=== PATIENT | female | born 1940 | race Caucasian/White ===

== ENCOUNTER 2021-05-20 12:20 | Outpatient (REF) | payer MEDICARE, SELFPAY ==
[2021-05-20 12:58] LABS: Alanine Aminotransferase < 6 U/L (0-31); Albumin Level 4.5 g/dL (3.5-5.0); Alkaline Phosphatase 67 U/L (39-117); Anion Gap 11 (12-20); Aspartate Amino Transferase 22 U/L (5-31); Bilirubin Total 0.9 mg/dL (0.0-1.0); Blood Urea Nitrogen 23 mg/dL (9-16); Calcium 9.6 mg/dL (8.4-10.2); Carbon Dioxide 30 mmol/L (22-29); Chloride 105 mmol/L (96-108); Estimated Glomerular Filt Rate > 60; Glucose Fasting 85 mg/dL (60-99); Potassium 4.2 mmol/L (3.3-5.1); Sodium 142 mmol/L (135-145); Total Protein 7.2 g/dL (6.5-8.0)
== END 2021-05-20 12:21 | disposition home or self-care (01) ==
LOC: HO.LAB 12:20
PROVIDERS: Visit Provider Internal Medicine
DX: C88.4 Extranodal marginal zone B-cell lymphoma of mucosa-associated lymphoid tissue [MALT-lymphoma] (principal); K59.01 Slow transit constipation; I10 Essential (primary) hypertension
CPT/HCPCS: 80053; 82306

== ENCOUNTER 2022-01-24 09:43 | Emergency (ER) | payer MEDICARE, SELFPAY ==
--- NOTE | ~2022-01-24 | XR_ITS ---
EXAMINATION: XR ABDOMEN KUB CLINICAL INDICATION: Constipation. No bowel movement 9 days. COMPARISON: None TECHNIQUE: AP view of the abdomen. FINDINGS: Stool is seen throughout nondilated colon with formed stool seen within the transverse colon and descending colon to rectum. No dilated loops of small bowel are evident. No pneumatosis intestinalis. Psoas margins are intact. There is degenerative change lumbar spine L4-S1. XR/XR KUB IMPRESSION: Stool within nondilated colon without evidence of large or small bowel obstruction.
[2022-01-24 09:48] VITALS: BP 153/99; PULSE 91; RESP 18; TEMP 35.9; O2SAT 95; BMI 22.8
[2022-01-24 10:33] VITALS: BP 134/67; PULSE 85; RESP 18; O2SAT 99
[2022-01-24 10:34] LABS: MANUAL DIFF FLAG NO
[2022-01-24 10:36] LABS: Basophils Percent Auto 0.2 % (0-2); Eosinophils Percent Auto 0.3 % (0-4); Hematocrit 40.6 % (37.0-47.0); Hemoglobin 13.6 g/dl (12.0-16.0); Imm Gran Abs Auto 0.03 X10*3/uL (0.00-0.03); Imm Gran Pct Auto 0.3 % (0.0-0.4); Lymphocytes Absolute Auto 0.8 X10*3/uL (1.2-4.9); Lymphocytes Percent Auto 9.4 % (20-40); Mean Corpuscular HGB Conc 33.5 g/dl (31.0-35.0); Mean Corpuscular Hemoglobin 27.9 pg (27.0-33.0); Mean Corpuscular Volume 83.4 fL (80.0-98.0); Mean Platelet Volume 10.7 fL (9.4-12.3); Monocytes Absolute Auto 0.5 X10*3/uL (0.1-1.2); Monocytes Percent Auto 5.6 % (2-11); Neutrophils Absolute Auto 7.5 x10*3/uL (2.0-8.3); Neutrophils Percent Auto 84.2 % (45-73); Platelet Count 179 X10*3/uL (160-400); Red Blood Count 4.87 X10*6/uL (4.20-5.50); Red Cell Distribution Width 14.7 % (11.0-16.0)
--- NOTE | 2022-01-24 10:36 | ED_ITS ---
HPI - Abdominal Pain General Chief Complaint: Abdominal Pain Stated Complaint: Constipated Time Seen by Provider: 01/24/22 10:04 Source: patient Mode of arrival: ambulatory History of Present Illness HPI narrative: 81-year-old female with a past medical history of HTN, lymphoma, Parkinson's, presenting to the ED complaining of lower abdominal cramping, and constipation without BM x9 days. Admits to passing minimal flatus today. Tried using OTC medications and enema without relief. Denies fever, chills, nausea, vomiting, diarrhea, dysuria/hematuria MD elicited complaint: abdominal pain Pertinent past history: constipation Onset (ago): day(s) Related Data Home Medications Medication Instructions Recorded Confirmed carbidopa 25 mg-levodopa 100 mg 1 tab PO TID 09/18/20 11/14/21 tablet rasagiline 0.5 mg tablet 0.5 mg PO DAILY 09/18/20 11/14/21 Previous Rx's Medication Instructions Recorded amlodipine 5 mg tablet 5 mg PO DAILY #90 tab 06/13/21 lisinopril 20 1 tab PO DAILY #90 tab 08/14/21 mg-hydrochlorothiazide 12.5 mg tablet Allergies Allergy/AdvReac Type Severity Reaction Status Date / Time clindamycin [CLINDAMYCIN] Allergy Severe DIARRHEA Verified 01/24/22 09:47 Penicillins [PCN] Allergy Intermediate UNKNOWN Verified 01/24/22 09:47 penicillin V Allergy Unknown Unknown Verified 01/24/22 09:47 Review of Systems Review of Systems Constitutional: No Fever, No Chills, No Fatigue, No Malaise ENT/Mouth: No Ear Pain, No Nasal Congestion, No sore throat, No Rhinorrhea, No Swallowing Difficulty Eyes: No Eye Pain, No Swelling, No Redness Cardiovascular: No Chest Pain, No SOB, No Edema, No Palpitations Respiratory: No Cough, No Dyspnea Gastrointestinal: No Nausea, No Vomiting, No Diarrhea, + Constipation, + Abdominal pain Genitourinary: No irregular bleeding, No Dysuria, No Urinary Frequency, No Hematuria, No Urgency, No Flank Pain Musculoskeletal: No joint pain, No Myalgias, No Joint Swelling Skin: No Skin Lesions, No rash Neuro: No Weakness, No Dizziness, No Headache Yes all other systems are reviewed and are negative PMFSH Past Medical History Attestation statement: The following information was validated with the patient. Medical History HTN (hypertension) Lymphoma Parkinson disease Vitamin D deficiency Surgical History H/O colonoscopy No pertinent past surgical history S/P partial hysterectomy Family History Family History Father Myocardial infarction Mother Uterine cancer Sister Alzheimer disease Social History Social History Housing: House Alcohol intake: current Alcohol intake frequency: does not drink Patient Tobacco Use Status: Never used Tobacco e-Cigarette/Vaping Use: Never Used Use of substances other than those prescribed or required for medical reasons: No Advance Directives: Yes Advance Directives Information Provided: Yes Advance Directives on File: No Current occupational status: retired Physical Exam ED Vital Signs: Vital Signs - 24 hr 01/24/22 09:48 01/24/22 10:33 Temperature 96.7 F L Pulse Rate 91 85 Respiratory Rate 18 18 Blood Pressure 153/99 H 134/67 Pulse Oximetry 95 99 BMI result Body Mass Index 22.8 Const General: cooperative, healthy appearing and no acute distress Orientation/consciousness: patient oriented x3 Limitations: no limitations HENMT Head: Yes normal to inspection and Yes atraumatic Ears: hearing grossly normal bilaterally General nose exam: Normal external nose present Face and sinus: Yes normal facial exam Eyes General: appearance normal, both eyes and all related structures EOM: EOMs intact bilaterally Neck Neck: Yes normal visual inspection and Yes no meningeal signs Resp Effort & Inspection: normal respiratory effort Auscultation: clear to auscultation bilaterally Cardio Rate: regular rate Heart sounds: S1 normal heart sound present and S2 normal heart sound present GI Inspection: Yes normal to inspection Palpation (GI): Soft to palpation, nontender, no guarding and not rigid Rectal Exam - Female: External hemorrhoid(s) present and fecal impaction General: Yes no CVA tenderness Back/Spine/Pelvis Back: no CVA tenderness Skin Rashes: no rashes Wounds: no wounds Neuro General: patient oriented x3 and no meningeal signs Gait exam (Neuro): Normal gait present Extrem General: Yes normal to inspection Procedures Rectal Disimpaction Indication: fecal impaction Procedural Sedation: No Technique: manual disimpaction with gloved finger Patient Tolerated Procedure: well Complications: none Additional Comments: partial disimpaction. Multiple small clumps of stool dislodged. Course Course Course Narrative: -1116--no leukocytosis. BUN chronically elevated. Labs otherwise unremarkable XR KUB IMPRESSION: Stool within nondilated colon without evidence of large or small bowel obstruction. -1140--manually disimpacted patient with partial success. Will give milk of magnesia and enema and wait for successful BM --1252--patient with successful BM in the ED. plan to DC home with PCP follow- up. Encouraged stool softeners, laxatives p.r.n. and increase fiber in diet. This was also discussed with patient's son at bedside, they verbalized understanding and feel safe for discharge home MDM - Abdominal Pain MDM Narrative Medical decision making narrative: 81-year-old female with a past medical history of HTN, lymphoma, Parkinson's, presenting to the ED complaining of lower abdominal cramping, and constipation without BM x9 days. On exam vital signs stable, NAD, abdomen soft/nontender, rectal exam fecal impaction noted. Concern for constipation/ fecal impaction vs SBO. Plan: Labs, UA, KUB, symptomatic tx Differential Diagnosis Differential diagnosis: Likely abdominal pain, constipation and small bowel obstruction Medical Records Attestation: I reviewed the patient's medical records. Lab Data Attestation: I reviewed the patient's lab results. Result diagrams: 01/24/22 10:30 01/24/22 10:30 Labs: Lab Results 01/24/22 01/24/22 Range/Units 10:30 10:30 WBC 9.0 (4.8-10.8) X10*3/uL RBC 4.87 (4.20-5.50) X10*6/uL Hgb 13.6 (12.0-16.0) g/dl Hct 40.6 (37.0-47.0) % MCV 83.4 (80.0-98.0) fL MCH 27.9 (27.0-33.0) pg MCHC 33.5 (31.0-35.0) g/dl RDW 14.7 (11.0-16.0) % Plt Count 179 (160-400) X10*3/uL MPV 10.7 (9.4-12.3) fL Immature Gran % (Auto) 0.3 (0.0-0.4) % Neut % (Auto) 84.2 H (45-73) % Lymph % (Auto) 9.4 L (20-40) % Stephens % (Auto) 5.6 (2-11) % Eos % (Auto) 0.3 (0-4) % Baso % (Auto) 0.2 (0-2) % Lymph # (Auto) 0.8 L (1.2-4.9) X10*3/uL Stephens # (Auto) 0.5 (0.1-1.2) X10*3/uL Eos # (Auto) 0.0 (0.0-0.4) X10*3/uL Baso # (Auto) 0.0 (0.0-0.2) X10*3/uL Abs Immat Gran (auto) 0.03 (0.00-0.03) X10*3/uL Absolute Neuts (auto) 7.5 (2.0-8.3) x10*3/uL Absolute Nucleated RBC 0.000 (0.0-0.012) X10*3/uL Nucleated RBC % (auto) 0.0 (0.0-0.2) /100WBC Sodium 139 (135-145) mmol/L Potassium 3.4 (3.3-5.1) mmol/L Chloride 102 (96-108) mmol/L Carbon Dioxide 24 (22-29) mmol/L Anion Gap 16 (12-20) BUN 21 H (9-16) mg/dL Creatinine 0.80 (0.5-1.4) mg/dL Estim Creat Clear Calc 43.6 Estimated GFR > 60 Random Glucose 139 H (60-115) mg/dL Calcium 9.2 (8.4-10.2) mg/dL Magnesium 1.8 (1.6-2.6) mg/dL Total Bilirubin 0.7 (0.0-1.0) mg/dL Direct Bilirubin 0.3 (0.0-0.5) mg/dL AST 20 (5-31) U/L ALT < 6 (0-31) U/L Alkaline Phosphatase 64 (39-117) U/L Total Protein 6.9 (6.5-8.0) g/dL Albumin 4.1 (3.5-5.0) g/dL Lipase 21 (8-78) U/L Discharge Plan Discharge Clinical Impression: Fecal impaction Patient Disposition: Home, Self-Care Instructions: Constipation (ED), Fecal Impaction (ED) Additional Instructions: Your blood work was reassuring. your x-ray showed large amount of stool in her colon. Your disimpacted in the ED with a successful bowel movement. Make sure in taking plenty of fluid. Increased fiber in her diet. Take stool softeners and laxatives p.r.n.. Do not go more than 48 hours without a bowel movement. If youre not moving your bowels/pooping or having flatus please return to the emergency department Prescriptions: No Action amlodipine 5 mg tablet 5 mg PO DAILY Qty: 90 3RF lisinopril-hydrochlorothiazide 20-12.5 mg tablet 1 tab PO DAILY Qty: 90 3RF rasagiline 0.5 mg tablet 0.5 mg PO DAILY 0RF carbidopa-levodopa 25-100 mg tablet 1 tab PO TID 0RF Referrals: Radha Cramer MD [Primary Care Provider] - 5 days
--- NOTE | 2022-01-24 10:40 | PC.NURSE ---
pt alert and oriented, skin pwd, respirations even and unlabored. pt reports being unable to have a bowel movement for the last 9 days, reports abd pain/rectal pain that comes and goes 8/10, denies nausea. pt attempted a enema earlier this morning without any success
[2022-01-24 10:53] LABS: Alanine Aminotransferase < 6 U/L (0-31); Albumin Level 4.1 g/dL (3.5-5.0); Alkaline Phosphatase 64 U/L (39-117); Anion Gap 16 (12-20); Aspartate Amino Transferase 20 U/L (5-31); Bilirubin Direct 0.3 mg/dL (0.0-0.5); Bilirubin Total 0.7 mg/dL (0.0-1.0); Blood Urea Nitrogen 21 mg/dL (9-16); Calcium 9.2 mg/dL (8.4-10.2); Carbon Dioxide 24 mmol/L (22-29); Chloride 102 mmol/L (96-108); Creatinine Clr Calc Pharmacy 43.6; Estimated Glomerular Filt Rate > 60; Glucose Random 139 mg/dL (60-115); Lipase 21 U/L (8-78); Magnesium 1.8 mg/dL (1.6-2.6); Potassium 3.4 mmol/L (3.3-5.1); Sodium 139 mmol/L (135-145); Total Protein 6.9 g/dL (6.5-8.0)
[2022-01-24] MEDS: Mineral OiL enema 133 ML ENEMA PR (11:40)
[2022-01-24] MEDS: Milk of Magnesia 30 ML ORAL.SUSP PO (11:40)
--- NOTE | 2022-01-24 12:54 | PC.NURSE ---
patient reports having bowel movement at this time, feels improved. provider aware, patient in no obvious distress at this time
== END 2022-01-24 14:17 | disposition home or self-care (01) ==
PROVIDERS: Physician Assistant; Emergency Provider Emergency Medicine; PCP Internal Medicine
DX: K59.00 Constipation, unspecified (principal); R10.13 Epigastric pain; Z79.899 Other long term (current) drug therapy
CPT/HCPCS: 36415; 74018; 80048; 80076; 83690; 83735; 85025; 99284

== ENCOUNTER 2022-11-28 15:20 | Outpatient (REF) | payer MEDICARE, SELFPAY ==
--- NOTE | ~2022-11-28 | XR_ITS ---
EXAMINATION: XR LUMBOSACRAL SPINE CLINICAL INFORMATION: Low back pain. COMPARISON: None TECHNIQUE: Three views of the lumbosacral spine. FINDINGS: There is generalized osteopenia. Mild to severe multilevel degenerative disc disease is seen most pronounced at L4-5 and L5-S1. Mild superior plate compression deformities are seen at L2 and L4 without acute features. The soft tissues are unremarkable. XR/XR lumbar spine 2-3V IMPRESSION: Multilevel degenerative changes as detailed above. Mild superior plate compression deformities at L2 and L4 do not demonstrate acute features. Correlate with patient history and physical exam.
== END 2022-11-28 15:21 | disposition home or self-care (01) ==
LOC: HO.HMGCX 15:20
PROVIDERS: PCP Internal Medicine; Visit Provider Internal Medicine
DX: M54.50 Low back pain, unspecified (principal); Z87.81 Personal history of (healed) traumatic fracture
CPT/HCPCS: 72100

== ENCOUNTER 2022-12-08 12:49 | Emergency (ER) | payer MEDICARE, SELFPAY ==
--- NOTE | ~2022-12-08 | CT_ITS ---
EXAMINATION: CT ABDOMEN AND PELVIS WITHOUT CONTRAST CLINICAL INFORMATION: Constipation, small bowel obstruction. COMPARISON: None TECHNIQUE: Multidetector volumetric imaging was performed from the superior aspect of the liver through the pubic symphysis. Sagittal and coronal reformatted images were obtained on the technologist's workstation. This CT examination was performed using dose optimization techniques as appropriate, variously including the following: *Automated exposure control *Adjustment of mA and/or kV according to patient size (this includes techniques or standardized protocols for targeted exams where dose is matched to indication/reason for exam; i.e. extremities or head) *Use of iterative reconstruction technique DLP: 558 mGy-cm FINDINGS: LUNG BASES: The lung bases are clear heart size is normal. There is moderate coronary artery calcifications. LIVER, GALLBLADDER, AND BILIARY TREE: The liver is normal in size, shape, and attenuation. No focal hepatic lesion or biliary ductal dilatation is present. The gallbladder is unremarkable with no evidence of radiopaque gallstones, gallbladder wall thickening, or obvious pericholecystic inflammatory changes. PANCREAS: Unremarkable. SPLEEN: Unremarkable. ADRENAL GLANDS: Unremarkable. KIDNEYS AND URETERS: The kidneys are normal in size, shape, and attenuation. No hydronephrosis, hydroureter, or calculi seen. No perinephric stranding. BLADDER: Unremarkable. GASTROINTESTINAL TRACT: There is scattered stool, oral contrast throughout the colon without distention. A significantly redundant sigmoid colon with air-fluid level noted in the caudate lobe. The small bowel loops are normal caliber. The stomach is nondistended. No free air or free fluid seen ABDOMINAL WALL: No significant hernia is appreciated. LYMPH NODES: No abnormal size retroperitoneal or pelvic lymph nodes seen. VASCULAR: Unremarkable. PELVIC VISCERA: There is moderate mural thickening of the rectum, nonspecific no pericolic fat stranding seen. OSSEOUS STRUCTURES: There are degenerative disc changes with vacuum disc phenomena L4-L5 and L5-S1 disc levels. There are moderate superior endplate Schmorl's node L5 and L2 vertebra. No aggressive lytic or sclerotic process seen. CT/CT abdomen pelvis wo IV con IMPRESSION: Moderate constipation. No acute process seen. Moderate mural thickening involving the rectum and distal segments, question stercoral colitis . Fleischner guidelines were followed.
[2022-12-08 12:53] VITALS: BP 177/94; PULSE 105; RESP 18; TEMP 36.4; O2SAT 97; BMI 21.0
--- NOTE | 2022-12-08 12:57 | ED.GENADULT ---
HPI - General Adult General Chief complaint: Abdominal Pain <CHASE Lanier - Last Filed: 12/08/22 19:36> Stated complaint: unable to void x 10 days <CHASE Lanier - Last Filed: 12/08/22 19:36> Time Seen by Provider: 12/08/22 13:59 <CHASE Lanier - Last Filed: 12/08/22 19:36> Source: patient <Judith Aggarwal NP - Last Filed: 12/08/22 18:04> Mode of arrival: ambulatory <Judith Aggarwal NP - Last Filed: 12/08/22 18:04> Limitations: no limitations <Judith Aggarwal NP - Last Filed: 12/08/22 18:04> History of Present Illness HPI narrative: 82 yo female with history of parkinsons disease, chronic constipation here wtih constipation and no BM x 12 days. Has been taking lactulose 15ml since 11/28 with no BM. NO associated pain/vomiting/fever. <Judith Aggarwal NP - Last Filed: 12/08/22 18:04> Related Data Home medications: Home Medications Medication Instructions Recorded Confirmed carbidopa 25 mg-levodopa 100 mg 1 tab PO TID 09/18/20 11/28/22 tablet rasagiline 0.5 mg tablet 0.5 mg PO DAILY 09/18/20 11/28/22 Previous Rx's Medication Instructions Recorded amlodipine 5 mg tablet 5 mg PO DAILY #90 tabs 06/09/22 baclofen 10 mg tablet 10 mg PO BEDTIME #10 tabs 11/28/22 lactulose 10 gram/15 mL (15 mL) 10 g (15 mL) PO BEDTIME #1,440 mL 11/28/22 oral solution lisinopril 10 1 tab PO DAILY #90 tabs 11/28/22 mg-hydrochlorothiazide 12.5 mg tablet meloxicam 15 mg tablet 15 mg PO DAILY #10 tabs 11/28/22 docusate sodium 100 mg capsule 100 mg PO DAILY #30 caps 12/08/22 (Colace) polyethylene glycol 3350 17 17 g PO DAILY #238 grams 12/08/22 gram/dose oral powder (Miralax) <CHASE Lanier - Last Filed: 12/08/22 19:36> Allergies/adverse reactions: Allergies Allergy/AdvReac Type Severity Reaction Status Date / Time clindamycin [CLINDAMYCIN] Allergy Severe DIARRHEA Verified 11/28/22 14:37 Penicillins [PCN] Allergy Intermediate Rash Verified 11/28/22 14:37 penicillin V Allergy Unknown Rash Verified 11/28/22 14:37 jax Allergy could not Verified 11/28/22 14:37 breath <CHASE Lanier - Last Filed: 12/08/22 19:36> Review of Systems Review of Systems: Yes all other systems are reviewed and are negative <Judith Aggarwal NP - Last Filed: 12/08/22 18:04> Constitutional: Constitutional: Reports no additional constitutional complaints, Denies body ache(s), Denies chills, Denies fever(s), Denies headache(s) and Denies weakness <Judith Aggarwal NP - Last Filed: 12/08/22 18:04> Eyes: Eyes: Reports no additional eye complaints and Denies change in vision <Judith Aggarwal NP - Last Filed: 12/08/22 18:04> ENT: Reports system reviewed and no additional complaints, except as documented, Denies dizziness, Denies headache(s), Denies nasal congestion, Denies nasal discharge and Denies neck pain <Judith Aggarwal NP - Last Filed: 12/08/22 18:04> Cardiovascular: Cardiovascular: Reports no additional cardiovascular complaints, Denies chest pain, Denies leg edema and Denies dyspnea <Judith Aggarwal NP - Last Filed: 12/08/22 18:04> Respiratory: Respiratory: Reports no additional respiratory complaints, Denies cough and Denies dyspnea <Judith Aggarwal NP - Last Filed: 12/08/22 18:04> Gastrointestinal: Gastrointestinal: Reports no additional gastrointestinal complaints, Denies abdominal pain, Reports constipation, Denies diarrhea, Denies nausea and Denies vomiting <Judith Aggarwal NP - Last Filed: 12/08/22 18:04> Genitourinary: Genitourinary: Reports no additional female genitourinary complaints and Denies urinary incontinence <Judith Aggarwal NP - Last Filed: 12/08/22 18:04> Musculoskeletal: Musculoskeletal: Reports no additional musculoskeletal complaints, Denies back pain, Denies arthralgias, Denies joint swelling, Denies neck pain, Denies numbness and Denies tingling <Judith Aggarwal NP - Last Filed: 12/08/22 18:04> Integumentary/Breasts: Skin/Breast: Reports system reviewed and no additional complaints, except as docu and Denies rash <Judith Aggarwal NP - Last Filed: 12/08/22 18:04> Neurologic: Reports system reviewed and no additional complaints, except as documented, Denies dizziness, Denies headache(s), Denies numbness, Denies tingling and Denies weakness <Judith Aggarwal NP - Last Filed: 12/08/22 18:04> [facility] Past Medical History Attestation statement: The following information was validated with the patient. <Judith Aggarwal NP - Last Filed: 12/08/22 18:04> Source: old records reviewed and nursing notes reviewed <Judith Aggarwal NP - Last Filed: 12/08/22 18:04> Medical History: Medical History HTN (hypertension) Lymphoma Parkinson disease Vitamin D deficiency <CHASE Lanier - Last Filed: 12/08/22 19:36> Surgical History: Surgical History H/O colonoscopy No pertinent past surgical history S/P partial hysterectomy <CHASE Lanier - Last Filed: 12/08/22 19:36> Family History Family History: Family History Father Myocardial infarction Mother Uterine cancer Sister Alzheimer disease <CHASE Lanier - Last Filed: 12/08/22 19:36> Social History Social History: Social History Housing: House Alcohol intake: current Alcohol intake frequency: does not drink Patient Tobacco Use Status: Never used Tobacco e-Cigarette/Vaping Use: Never Used Advance Directives: No Advance Directives Information Provided: Yes Current occupational status: retired Cognitive needs: No Hearing needs: No Vision needs: Yes <CHASE Lanier - Last Filed: 12/08/22 19:36> Physical Exam ED Vital Signs: Vital Signs - 24 hr 12/08/22 12:53 12/08/22 16:00 Temperature 97.5 F 97.6 F Pulse Rate 105 H 88 Respiratory Rate 18 16 Blood Pressure 177/94 H 160/69 H Pulse Oximetry 97 99 Oxygen Delivery Method Room Air Room Air BMI result Body Mass Index 21.0 <CHASE Lanier - Last Filed: 12/08/22 19:36> Vital Signs - 24 hr 12/08/22 12:53 12/08/22 16:00 Temperature 97.5 F 97.6 F Pulse Rate 105 H 88 Respiratory Rate 18 16 Blood Pressure 177/94 H 160/69 H Pulse Oximetry 97 99 Oxygen Delivery Method Room Air Room Air BMI result Body Mass Index 21.0 <Judith Aggarwal NP - Last Filed: 12/08/22 18:04> Const General: cooperative, healthy appearing, comfortable and no acute distress <Judith Aggarwal NP - Last Filed: 12/08/22 18:04> Orientation/consciousness: patient oriented x3 <Judith Aggarwal NP - Last Filed: 12/08/22 18:04> Limitations: no limitations <Judith Aggarwal NP - Last Filed: 12/08/22 18:04> HENMT Head: Yes normal to inspection <Judith Aggarwal NP - Last Filed: 12/08/22 18:04> Ears: hearing grossly normal bilaterally <Judith Aggarwal NP - Last Filed: 12/08/22 18:04> Eyes General: appearance normal, both eyes and all related structures <Judith Aggarwal NP - Last Filed: 12/08/22 18:04> Pupils: Equal, round and reactive pupils present <HAROON Polo Last Filed: 12/08/22 18:04> Neck Neck: Yes normal visual inspection, Yes full ROM and Yes no lymphadenopathy <Judith Aggarwal NP - Last Filed: 12/08/22 18:04> Chest Chest palpation & inspection: normal inspection of the chest <Judith Aggarwal NP - Last Filed: 12/08/22 18:04> Resp Effort & Inspection: normal respiratory effort <Judith Aggarwal NP - Last Filed: 12/08/22 18:04> Auscultation: clear to auscultation bilaterally <Judith Aggarwal NP - Last Filed: 12/08/22 18:04> Cardio Rate: regular rate <Judith Aggarwal NP - Last Filed: 12/08/22 18:04> Rhythm: regular rhythm <Judith Aggarwal NP - Last Filed: 12/08/22 18:04> Peripheral pulses: Peripheral pulses 2+ throughout <Judith Aggarwal NP - Last Filed: 12/08/22 18:04> GI Inspection: Yes normal to inspection <Judith Aggarwal NP - Last Filed: 12/08/22 18:04> Palpation (GI): Soft to palpation and nontender <Judith Aggarwal NP - Last Filed: 12/08/22 18:04> Auscultation: normal bowel sounds <Judith Aggarwal NP - Last Filed: 12/08/22 18:04> Rectal Exam - Female: normal sphincter tone and fecal impaction <Judith Aggarwal NP - Last Filed: 12/08/22 18:04> General: Yes no CVA tenderness <Judith Aggarwal NP - Last Filed: 12/08/22 18:04> Back/Spine/Pelvis Back: no CVA tenderness <Judith Agagrwal NP - Last Filed: 12/08/22 18:04> Thoracic/Lumbar Spine: thoracic and lumbar spine normal to inspection <Judith Aggarwal NP - Last Filed: 12/08/22 18:04> Skin General skin exam: no rashes or lesions noted <Judith Aggarwal NP - Last Filed: 12/08/22 18:04> Neuro General: patient oriented x3 and moves all extremities <Judith Aggarwal NP - Last Filed: 12/08/22 18:04> Cranial nerves: Yes Equal, round and reactive pupils present <Judith Aggarwal NP - Last Filed: 12/08/22 18:04> Extrem General: Yes normal to inspection <Judith Aggarwal NP - Last Filed: 12/08/22 18:04> Course Course Course Narrative: RME; patient with pmh of parkinsons presents to the ED for constipatoin for 12 days. patient not passing any stool, but is passing gas. Abdomen is soft/bening. patient has pmh of surgery on abdomen. patient will have labs draws and abdominal CT scan to evalute for bowel obstruction. <CHASE Lanier - Last Filed: 12/08/22 19:36> Reevaluation(s) Reevaluation #1: 1800-Patient with large BM. Patient feels much better. Will discharge home on bowel regimen. Reviewed worrisome signs/symptoms with patient and when to seek additional care. Comfortable with discharge home. <Judith Aggarwal NP - Last Filed: 12/08/22 18:04> Medications Administered Discontinued Medications Generic Name Dose Route Start Last Admin Trade Name Freq PRN Reason Stop Dose Admin Bisacodyl 10 mg 12/08/22 16:22 12/08/22 16:53 Bisacodyl 5 Mg Tablet. PO 12/08/22 16:23 10 mg ONCE ONE Administration Magnesium Hydroxide 15 ml 12/08/22 16:22 12/08/22 16:53 Milk Of Magnesia 30 Ml Oral.Susp PO 12/08/22 16:23 15 ml ONCE ONE Administration Sodium Biphosphate/Sodium Phosphate 133 ml 12/08/22 14:21 12/08/22 14:28 Sodium Phosphate,[place]-Dibasic 133 Ml Enema [place] 12/08/22 14:22 133 ml ONCE ONE Administration <CHASE Lanier - Last Filed: 12/08/22 19:36> Medications Administered Discontinued Medications Generic Name Dose Route Start Last Admin Trade Name Freq PRN Reason Stop Dose Admin Bisacodyl 10 mg 12/08/22 16:22 12/08/22 16:53 Bisacodyl 5 Mg Tablet. PO 12/08/22 16:23 10 mg ONCE ONE Administration Magnesium Hydroxide 15 ml 12/08/22 16:22 12/08/22 16:53 Milk Of Magnesia 30 Ml Oral.Susp PO 12/08/22 16:23 15 ml ONCE ONE Administration Sodium Biphosphate/Sodium Phosphate 133 ml 12/08/22 14:21 12/08/22 14:28 Sodium Phosphate,[place]-Dibasic 133 Ml Enema [place] 12/08/22 14:22 133 ml ONCE ONE Administration <Judith Aggarwal NP - Last Filed: 12/08/22 18:04> Procedures Rectal Disimpaction Indication: fecal impaction <Judith Aggarwal NP - Last Filed: 12/08/22 18:04> Sedation/Analgesia: none <Judith Aggarwal NP - Last Filed: 12/08/22 18:04> Technique: manual disimpaction with gloved finger <Judith Aggarwal NP - Last Filed: 12/08/22 18:04> Result: significant stool output <Judith Aggarwal NP - Last Filed: 12/08/22 18:04> Patient Tolerated Procedure: well <Judith Aggarwal NP - Last Filed: 12/08/22 18:04> Complications: none <Judith Aggarwal NP - Last Filed: 12/08/22 18:04> Medical Decision Making Medical Decision Making [facility] Narrative: 82 yo female here with constipation x 13 days despite taking lactulose since 11/28. No other bowel regimen. H/o chronic constipation requiring fecal impactions in ED settings. Abdomen soft/nontender. +BS <Judith Aggarwal NP - Last Filed: 12/08/22 18:04> Differential Diagnosis Differential Diagnoses: The differential diagnosis associated with the presentation includes <Judith Aggarwal NP - Last Filed: 12/08/22 18:04> constipation, fecal impaction <Judith Aggarwal NP - Last Filed: 12/08/22 18:04> Lab Data [facility] Lab Attestation statement: I reviewed the patient's lab results. <Judith Aggarwal NP - Last Filed: 12/08/22 18:04> Result Diagrams: 12/08/22 13:22 12/08/22 13:22 <CHASE Lanier - Last Filed: 12/08/22 19:36> Labs: Lab Results 12/08/22 12/08/22 12/08/22 Range/Units 13:22 13:22 13:22 WBC 6.6 (4.8-10.8) X10*3/uL RBC 4.88 (4.20-5.50) X10*6/uL Hgb 14.0 (12.0-16.0) g/dl Hct 42.0 (37.0-47.0) % MCV 86.1 (80.0-98.0) fL MCH 28.7 (27.0-33.0) pg MCHC 33.3 (31.0-35.0) g/dl RDW 12.9 (11.0-16.0) % Plt Count 271 D (160-400) X10*3/uL MPV 9.9 (9.4-12.3) fL Immature Gran % (Auto) 0.3 (0.0-0.4) % Neut % (Auto) 62.3 (45-73) % Lymph % (Auto) 29.7 (20-40) % [place] % (Auto) 5.7 (2-11) % Eos % (Auto) 1.5 (0-4) % Baso % (Auto) 0.5 (0-2) % Lymph # (Auto) 2.0 (1.2-4.9) X10*3/uL [place] # (Auto) 0.4 (0.1-1.2) X10*3/uL Eos # (Auto) 0.1 (0.0-0.4) X10*3/uL Baso # (Auto) 0.0 (0.0-0.2) X10*3/uL Abs Immat Gran (auto) 0.02 (0.00-0.03) X10*3/uL Absolute Neuts (auto) 4.1 (2.0-8.3) x10*3/uL Absolute Nucleated RBC 0.000 (0.0-0.012) X10*3/uL Nucleated RBC % (auto) 0.0 (0.0-0.2) /100WBC PT 11.4 (10.0-13.1) SEC INR 1.0 (0.9-1.1) APTT 28.5 (26.0-36.4) SEC Sodium 139 (135-145) mmol/L Potassium 4.0 (3.3-5.1) mmol/L Chloride 103 (96-108) mmol/L Carbon Dioxide 24 (22-29) mmol/L Anion Gap 16 (12-20) BUN 20 H (9-16) mg/dL Creatinine 0.75 (0.5-1.4) mg/dL Estim Creat Clear Calc 45.7 Estimated GFR > 60 Random Glucose 110 (60-115) mg/dL Calcium 9.5 (8.4-10.2) mg/dL Total Bilirubin 0.6 (0.0-1.0) mg/dL AST 21 (5-31) U/L ALT < 6 (0-31) U/L Alkaline Phosphatase 56 (39-117) U/L Total Protein 7.3 (6.5-8.0) g/dL Albumin 4.3 (3.5-5.0) g/dL Urine Color Urine Appearance Urine pH (5.0-9.0) Ur Specific [place] (1.005-1.025) Urine Protein (Neg-Trace) mg/dL Urine Glucose (UA) (Negative) mg/dL Urine Ketones (Negative) mg/dL Urine Blood (Negative) Urine Nitrite (Negative) Ur Leukocyte Esterase (Negative) 12/08/22 Range/Units 14:15 WBC (4.8-10.8) X10*3/uL RBC (4.20-5.50) X10*6/uL Hgb (12.0-16.0) g/dl Hct (37.0-47.0) % MCV (80.0-98.0) fL MCH (27.0-33.0) pg MCHC (31.0-35.0) g/dl RDW (11.0-16.0) % Plt Count (160-400) X10*3/uL MPV (9.4-12.3) fL Immature Gran % (Auto) (0.0-0.4) % Neut % (Auto) (45-73) % Lymph % (Auto) (20-40) % [place] % (Auto) (2-11) % Eos % (Auto) (0-4) % Baso % (Auto) (0-2) % Lymph # (Auto) (1.2-4.9) X10*3/uL [place] # (Auto) (0.1-1.2) X10*3/uL Eos # (Auto) (0.0-0.4) X10*3/uL Baso # (Auto) (0.0-0.2) X10*3/uL Abs Immat Gran (auto) (0.00-0.03) X10*3/uL Absolute Neuts (auto) (2.0-8.3) x10*3/uL Absolute Nucleated RBC (0.0-0.012) X10*3/uL Nucleated RBC % (auto) (0.0-0.2) /100WBC PT (10.0-13.1) SEC INR (0.9-1.1) APTT (26.0-36.4) SEC Sodium (135-145) mmol/L Potassium (3.3-5.1) mmol/L Chloride (96-108) mmol/L Carbon Dioxide (22-29) mmol/L Anion Gap (12-20) BUN (9-16) mg/dL Creatinine (0.5-1.4) mg/dL Estim Creat Clear Calc Estimated GFR Random Glucose (60-115) mg/dL Calcium (8.4-10.2) mg/dL Total Bilirubin (0.0-1.0) mg/dL AST (5-31) U/L ALT (0-31) U/L Alkaline Phosphatase (39-117) U/L Total Protein (6.5-8.0) g/dL Albumin (3.5-5.0) g/dL Urine Color Yellow Urine Appearance Clear Urine pH 6.5 (5.0-9.0) Ur Specific [place] 1.015 (1.005-1.025) Urine Protein Negative (Neg-Trace) mg/dL Urine Glucose (UA) Negative (Negative) mg/dL Urine Ketones Negative (Negative) mg/dL Urine Blood Negative (Negative) Urine Nitrite Negative (Negative) Ur Leukocyte Esterase Negative (Negative) <CHASE Lanier - Last Filed: 12/08/22 19:36> Lab Results 12/08/22 12/08/22 12/08/22 Range/Units 13:22 13:22 13:22 WBC 6.6 (4.8-10.8) X10*3/uL RBC 4.88 (4.20-5.50) X10*6/uL Hgb 14.0 (12.0-16.0) g/dl Hct 42.0 (37.0-47.0) % MCV 86.1 (80.0-98.0) fL MCH 28.7 (27.0-33.0) pg MCHC 33.3 (31.0-35.0) g/dl RDW 12.9 (11.0-16.0) % Plt Count 271 D (160-400) X10*3/uL MPV 9.9 (9.4-12.3) fL Immature Gran % (Auto) 0.3 (0.0-0.4) % Neut % (Auto) 62.3 (45-73) % Lymph % (Auto) 29.7 (20-40) % [place] % (Auto) 5.7 (2-11) % Eos % (Auto) 1.5 (0-4) % Baso % (Auto) 0.5 (0-2) % Lymph # (Auto) 2.0 (1.2-4.9) X10*3/uL [place] # (Auto) 0.4 (0.1-1.2) X10*3/uL Eos # (Auto) 0.1 (0.0-0.4) X10*3/uL Baso # (Auto) 0.0 (0.0-0.2) X10*3/uL Abs Immat Gran (auto) 0.02 (0.00-0.03) X10*3/uL Absolute Neuts (auto) 4.1 (2.0-8.3) x10*3/uL Absolute Nucleated RBC 0.000 (0.0-0.012) X10*3/uL Nucleated RBC % (auto) 0.0 (0.0-0.2) /100WBC PT 11.4 (10.0-13.1) SEC INR 1.0 (0.9-1.1) APTT 28.5 (26.0-36.4) SEC Sodium 139 (135-145) mmol/L Potassium 4.0 (3.3-5.1) mmol/L Chloride 103 (96-108) mmol/L Carbon Dioxide 24 (22-29) mmol/L Anion Gap 16 (12-20) BUN 20 H (9-16) mg/dL Creatinine 0.75 (0.5-1.4) mg/dL Estim Creat Clear Calc 45.7 Estimated GFR > 60 Random Glucose 110 (60-115) mg/dL Calcium 9.5 (8.4-10.2) mg/dL Total Bilirubin 0.6 (0.0-1.0) mg/dL AST 21 (5-31) U/L ALT < 6 (0-31) U/L Alkaline Phosphatase 56 (39-117) U/L Total Protein 7.3 (6.5-8.0) g/dL Albumin 4.3 (3.5-5.0) g/dL Urine Color Urine Appearance Urine pH (5.0-9.0) Ur Specific [place] (1.005-1.025) Urine Protein (Neg-Trace) mg/dL Urine Glucose (UA) (Negative) mg/dL Urine Ketones (Negative) mg/dL Urine Blood (Negative) Urine Nitrite (Negative) Ur Leukocyte Esterase (Negative) 12/08/22 Range/Units 14:15 WBC (4.8-10.8) X10*3/uL RBC (4.20-5.50) X10*6/uL Hgb (12.0-16.0) g/dl Hct (37.0-47.0) % MCV (80.0-98.0) fL MCH (27.0-33.0) pg MCHC (31.0-35.0) g/dl RDW (11.0-16.0) % Plt Count (160-400) X10*3/uL MPV (9.4-12.3) fL Immature Gran % (Auto) (0.0-0.4) % Neut % (Auto) (45-73) % Lymph % (Auto) (20-40) % [place] % (Auto) (2-11) % Eos % (Auto) (0-4) % Baso % (Auto) (0-2) % Lymph # (Auto) (1.2-4.9) X10*3/uL [place] # (Auto) (0.1-1.2) X10*3/uL Eos # (Auto) (0.0-0.4) X10*3/uL Baso # (Auto) (0.0-0.2) X10*3/uL Abs Immat Gran (auto) (0.00-0.03) X10*3/uL Absolute Neuts (auto) (2.0-8.3) x10*3/uL Absolute Nucleated RBC (0.0-0.012) X10*3/uL Nucleated RBC % (auto) (0.0-0.2) /100WBC PT (10.0-13.1) SEC INR (0.9-1.1) APTT (26.0-36.4) SEC Sodium (135-145) mmol/L Potassium (3.3-5.1) mmol/L Chloride (96-108) mmol/L Carbon Dioxide (22-29) mmol/L Anion Gap (12-20) BUN (9-16) mg/dL Creatinine (0.5-1.4) mg/dL Estim Creat Clear Calc Estimated GFR Random Glucose (60-115) mg/dL Calcium (8.4-10.2) mg/dL Total Bilirubin (0.0-1.0) mg/dL AST (5-31) U/L ALT (0-31) U/L Alkaline Phosphatase (39-117) U/L Total Protein (6.5-8.0) g/dL Albumin (3.5-5.0) g/dL Urine Color Yellow Urine Appearance Clear Urine pH 6.5 (5.0-9.0) Ur Specific [place] 1.015 (1.005-1.025) Urine Protein Negative (Neg-Trace) mg/dL Urine Glucose (UA) Negative (Negative) mg/dL Urine Ketones Negative (Negative) mg/dL Urine Blood Negative (Negative) Urine Nitrite Negative (Negative) Ur Leukocyte Esterase Negative (Negative) <Judith Aggarwal NP - Last Filed: 12/08/22 18:04> Independent Interpretation I performed an independent interpretation of an: CT Scan (I indepdentely reviewed the CT scan which shows mod constiption ) <Judith Aggarwal NP - Last Filed: 12/08/22 18:04> Radiology Impression Discussion of test interpretation with radiology: I have reviewed the radiologist's reading. <Judith Aggarwal NP - Last Filed: 12/08/22 18:04> Radiologist Impression: [address] [address] [address] Scan Report Signed Patient: Angela Eric MR#: [id number] : 1940 Acct:[id number] Age/Sex: 82 / F ADM Date: 12/08/22 Loc: HO.ED Attending Dr: Ordering Physician: Jose M Noland Date of Service: 12/08/22 Procedure(s): CT abdomen pelvis wo IV con Accession Number(s): [id number] cc: Jose M Noland~ EXAMINATION: CT ABDOMEN AND PELVIS WITHOUT CONTRAST? CLINICAL INFORMATION: Constipation, small bowel obstruction.? COMPARISON: None? TECHNIQUE: Multidetector volumetric imaging was performed from the superior aspect of the liver through the pubic symphysis. Sagittal and coronal reformatted images were obtained on the technologist's workstation.? This CT examination was performed using dose optimization techniques as appropriate, variously including the following: *Automated exposure control *Adjustment of mA and/or kV according to patient size (this includes techniques or standardized protocols for targeted exams where dose is matched to indication/reason for exam; i.e. extremities or head) *Use of iterative reconstruction technique DLP: 558 mGy-cm FINDINGS: LUNG BASES: The lung bases are clear heart size is normal. There is moderate coronary artery calcifications. LIVER, GALLBLADDER, AND BILIARY TREE: The liver is normal in size, shape, and attenuation. No focal hepatic lesion or biliary ductal dilatation is present. The gallbladder is unremarkable with no evidence of radiopaque gallstones, gallbladder wall thickening, or obvious pericholecystic inflammatory changes.? PANCREAS: Unremarkable.? SPLEEN: Unremarkable.? ADRENAL GLANDS: Unremarkable.? KIDNEYS AND URETERS: The kidneys are normal in size, shape, and attenuation. No hydronephrosis, hydroureter, or calculi seen. No perinephric stranding. ? BLADDER: Unremarkable.? GASTROINTESTINAL TRACT: There is scattered stool, oral contrast throughout the colon without distention. A significantly redundant sigmoid colon with air-fluid level noted in the caudate lobe. The small bowel loops are normal caliber. The stomach is nondistended. No free air or free fluid seen ABDOMINAL WALL: No significant hernia is appreciated.? LYMPH NODES: No abnormal size retroperitoneal or pelvic lymph nodes seen. VASCULAR: Unremarkable. PELVIC VISCERA: There is moderate mural thickening of the rectum, nonspecific no pericolic fat stranding seen.? OSSEOUS STRUCTURES: There are degenerative disc changes with vacuum disc phenomena L4-L5 and L5-S1 disc levels. There are moderate superior endplate Schmorl's node L5 and L2 vertebra. No aggressive lytic or sclerotic process seen. CT/CT abdomen pelvis wo IV con IMPRESSION: Moderate constipation. No acute process seen. Moderate mural thickening involving the rectum and distal segments, question stercoral colitis? . ? <Judith Aggarwal NP - Last Filed: 12/08/22 18:04> Discharge Plan Discharge Clinical Impression: Constipation, Fecal impaction <CHASE Lanier - Last Filed: 12/08/22 19:36> Patient Disposition: Still a Patient <CHASE Lanier - Last Filed: 12/08/22 19:36> Instructions: Constipation (ED), Fecal Impaction (ED) <CHASE Lanier - Last Filed: 12/08/22 19:36> Additional Instructions: THESE INSTRUCTIONS ARE IMPORTANT DUE TO YOUR AGE AND PARKINSONS DISEASE YOU HAVE CONSTIPATION. YOU NEED TO BE ON A BOWEL REGIMEN OR ELSE YOU WILL CONTINUE TO SUFFER FROM CONSTIPATION AND NEED TO SEEK CARE THE EMERGENCY ROOM. WHAT IS A BOWEL REGIMEN. A BOWEL REGIMEN IS A SAFELY PRESCRIBED GROUP OF MEDICATIONS TO KEEP YOUR BOWELS REGULAR. YOUR REGIMEN SHOULD CONSIST OF ONCE DAILY MIRALAX. MIX THIS WITH 8 OUNCES OF CLEAR LIQUIDS AND DRINK WITHIN 15 MINUTES. THIS MEDICATION IS SAFE. YOUR BOWEL REGIMEN SHOULD ALSO CONSIST OF COLACE DAILY. THIS IS A STOOL SOFTENER. YOU CAN EXPECT THAT YOU MAY PASS GAS AND HAVE SOME MILD ABDOMINAL CRAMPING WHEN TAKING THESE MEDICATIONS. THIS IS OKAY AND SAFE. TAKE THE LACTULOS IF YOU DO NOT HAVE A BOWEL MOVEMENT AFTER 3 DAYS. TAKE THE LACTULOSE ONCE DAILY UNTIL HAVING REGULAR BOWEL MOVEMENTS THEN DISCONTINUE THE USE OF IT. MAKE SURE YOU ARE DRINKING FLUIDS BECAUSE BEING HYDRATED HELPS WITH CONSTIPATION. EAT A HIGH FIBER DIET. <CHASE Lanier - Last Filed: 12/08/22 19:36> Prescriptions: New polyethylene glycol 3350 [Miralax] 17 gram/dose powder 17 g PO DAILY Qty: 238 0RF docusate sodium [Colace] 100 mg capsule 100 mg PO DAILY Qty: 30 0RF No Action amlodipine 5 mg tablet 5 mg PO DAILY Qty: 90 3RF rasagiline 0.5 mg tablet 0.5 mg PO DAILY carbidopa-levodopa 25-100 mg tablet 1 tab PO TID lactulose 10 gram/15 mL (15 mL) solution 10 g PO BEDTIME Qty: 1440 3RF lisinopril-hydrochlorothiazide 10-12.5 mg tablet 1 tab PO DAILY Qty: 90 1RF meloxicam 15 mg tablet 15 mg PO DAILY Qty: 10 0RF baclofen 10 mg tablet 10 mg PO BEDTIME Qty: 10 0RF <CHASE Lanier - Last Filed: 12/08/22 19:36> Referrals: Radha Cramer MD [Primary Care Provider] - 5 days <CHASE Lanier - Last Filed: 12/08/22 19:36> Interventions: ED Discharge Assessment Last Done: 12/08/22 18:13 <CHASE Lanier - Last Filed: 12/08/22 19:36> Discharge Date/Time: 12/08/22 18:17 <CHASE Lanier - Last Filed: 12/08/22 19:36>
[2022-12-08 13:29] LABS: MANUAL DIFF FLAG NO
[2022-12-08 13:36] LABS: Prothrombin Time 11.4 SEC (10.0-13.1)
[2022-12-08 13:37] LABS: Basophils Percent Auto 0.5 % (0-2); Eosinophils Absolute Auto 0.1 X10*3/uL (0.0-0.4); Eosinophils Percent Auto 1.5 % (0-4); Imm Gran Abs Auto 0.02 X10*3/uL (0.00-0.03); Imm Gran Pct Auto 0.3 % (0.0-0.4); Lymphocytes Percent Auto 29.7 % (20-40); Mean Corpuscular HGB Conc 33.3 g/dl (31.0-35.0); Mean Corpuscular Hemoglobin 28.7 pg (27.0-33.0); Mean Corpuscular Volume 86.1 fL (80.0-98.0); Mean Platelet Volume 9.9 fL (9.4-12.3); Monocytes Absolute Auto 0.4 X10*3/uL (0.1-1.2); Monocytes Percent Auto 5.7 % (2-11); Neutrophils Absolute Auto 4.1 x10*3/uL (2.0-8.3); Neutrophils Percent Auto 62.3 % (45-73); Platelet Count 271 X10*3/uL (160-400); Red Blood Count 4.88 X10*6/uL (4.20-5.50); Red Cell Distribution Width 12.9 % (11.0-16.0); White Blood Count 6.6 X10*3/uL (4.8-10.8)
[2022-12-08 13:39] LABS: Partial Thromboplastin Time 28.5 SEC (26.0-36.4)
[2022-12-08 14:06] LABS: Alanine Aminotransferase < 6 U/L (0-31); Albumin Level 4.3 g/dL (3.5-5.0); Alkaline Phosphatase 56 U/L (39-117); Anion Gap 16 (12-20); Aspartate Amino Transferase 21 U/L (5-31); Bilirubin Total 0.6 mg/dL (0.0-1.0); Blood Urea Nitrogen 20 mg/dL (9-16); Calcium 9.5 mg/dL (8.4-10.2); Carbon Dioxide 24 mmol/L (22-29); Chloride 103 mmol/L (96-108); Creatinine Clr Calc Pharmacy 45.7; Estimated Glomerular Filt Rate > 60; Glucose Random 110 mg/dL (60-115); Sodium 139 mmol/L (135-145); Total Protein 7.3 g/dL (6.5-8.0)
[2022-12-08 14:21] LABS: Appearance Urine Clear; Color Urine Yellow; Glucose Urine UA Negative (Negative); Leukocyte Esterase Urine Negative (Negative); Nitrite Urine Negative (Negative); PH 6.5 (5.0-9.0); Specific Gravity - Urine 1.015 (1.005-1.025); Urine Blood Negative (Negative); Urine Ketones Negative (Negative); Urine Protein Negative (Neg-Trace)
[2022-12-08] MEDS: Sodium Phosphate,Mono-Dibasic 133 ML ENEMA PR (14:28)
--- NOTE | 2022-12-08 15:00 | MHC.EDTECH ---
this pct assumed care of patient at 1500 ,patient vitals sign taken ,patient son at bedside ,warm blanket given ,call [facility] within reach .
[2022-12-08 16:00] VITALS: BP 160/69; PULSE 88; RESP 16; TEMP 36.4; O2SAT 99
[2022-12-08] MEDS: bisacodyL 5 MG TABLET.DR 10 MG PO (16:53)
[2022-12-08] MEDS: Milk of Magnesia 30 ML ORAL.SUSP 15 ML PO (16:53)
== END 2022-12-08 18:17 | disposition still patient (30) ==
PROVIDERS: Physician Assistant; Emergency Provider Emergency Medicine; PCP Internal Medicine
DX: K59.00 Constipation, unspecified (principal); K56.41 Fecal impaction; G20 Parkinson's disease; I10 Essential (primary) hypertension; Z79.899 Other long term (current) drug therapy
CPT/HCPCS: 36415; 74176; 80053; 81003; 85025; 85610; 85730; 99283; 99284

== ENCOUNTER → 2023-02-09 12:52 | Outpatient (BNVA) | payer MEDICARE, SELFPAY | PROVIDERS: PCP Internal Medicine; Visit Provider Anesthesiology | DX: M47.16 Other spondylosis with myelopathy, lumbar region (principal); M51.36 Other intervertebral disc degeneration, lumbar region; M54.50 Low back pain, unspecified; M48.00 Spinal stenosis, site unspecified; G89.4 Chronic pain syndrome | CPT/HCPCS: 99202 ==

== ENCOUNTER 2023-02-12 16:52 | Outpatient (REF) | payer MEDICARE, SELFPAY ==
--- NOTE | ~2023-02-12 | MR_ITS ---
EXAMINATION: MR LUMBAR SPINE WITHOUT AND WITH CONTRAST CLINICAL INFORMATION: Assess for lesion of sciatic nerve. Lower back pain. COMPARISON: CT scan of the abdomen and pelvis 12/08/2022. Plain films of the lumbar spine 11/28/2022. TECHNIQUE: MRI of the lumbar spine was obtained using routine sequences with and without contrast. Intravenous contrast: Gadavist 7.5 mL. FINDINGS: VERTEBRAL BODIES AND PARASPINAL STRUCTURES: There is a mild levoscoliosis. There are mild retrolistheses of L1 on L2 and L2 on L3. There is multilevel narrowing of intervertebral disc height with loss of signal which is most severe at L4-L5 and L5-S1. There is invagination of disc into superior endplates of L2 and L3, demonstrated on prior imaging. There are degenerative endplate contour changes with fatty endplate signal at L4-L5. The study redemonstrates the loss of vertebral body height of T11, L2 and L4 which are chronic; these vertebrae have isointense signal to the adjacent osseous structures. No acute compression fractures are demonstrated. Overall, marrow signal is homogenous. There is no abnormal osseous enhancement. There is a small cyst in the posterior right hepatic lobe, seen on prior imaging. The visualized retroperitoneal and pelvic structures are unremarkable. CONUS MEDULLARIS AND CAUDA EQUINA: Normal, terminating at the level of L1-L2. The lower thoracic spinal cord appears normal, and there is no abnormal enhancement. The cauda equina nerve roots and filum terminale appear normal. SPINAL LEVELS: T12-L1: There is mild bilateral facet arthropathy. Disc contour is normal. There is no central stenosis or foraminal narrowing. L1-L2: There is mild to moderate bilateral facet arthropathy with ligamenta flava hypertrophy. There is a broad-based posterior disc protrusion which is more prominent to the right of midline with some distortion of the ventral thecal sac and with mild narrowing of the right subarticular recess. There is an inferior disc protrusion in the right neural foramen without definite exiting nerve root impingement. There is no central stenosis. L2-L3: There is moderate to severe right and moderate left facet arthropathy. There is posterior protrusion of the inferior body of L2 into the spinal canal with some flattening of the ventral thecal sac, but without significant central stenosis. There is narrowing of the bilateral subarticular recesses, and there is mild foraminal narrowing bilaterally. L3-L4: There is severe right and moderate to severe left facet arthropathy with ligamenta flava hypertrophy. There is a broad-based posterior disc protrusion which flattens the ventral thecal sac and narrows the subarticular recesses with impingement on the traversing L4 nerve roots bilaterally. There is moderate to severe central stenosis. There are bilateral foraminal disc protrusions, more prominent on the right with impingement on the exiting right L3 nerve root. L4-L5: There are moderate bilateral facet arthropathic changes. There are sequelae of a left-sided hemilaminectomy. There is a posterior disc protrusion which extends far laterally on the left and there is impingement on the exiting/extraforaminal left L4 nerve root. There is narrowing of the left subarticular recess with impingement on the traversing left L5 nerve root. There is a disc osteophyte complex in the right neural foramen with impingement on the exiting right L4 nerve root. There is mild central stenosis. L5-S1: There is markedly severe left and severe right facet arthropathy. There is a broad-based posterior disc protrusion with an annular fissure, with an extruded component extending into the right subarticular recess and into the right lateral recess of S1, and there is impingement on the traversing S1 nerve root with distortion of the ventral thecal sac. There is also mild narrowing of the left subarticular recess. There is a prominent left-sided disc protrusion with mass effect on the exiting left L5 nerve root. There is no foraminal nerve root impingement on the right. There is moderate to severe central stenosis. MR/MR lumbar spine wo/w con IMPRESSION: 1. There are sequelae of a left-sided hemilaminectomy at L4-L5. There is a posterior disc protrusion extending far laterally on the left with impingement on the exiting/extraforaminal left L4 nerve root. There is narrowing of the left subarticular recess with impingement on the traversing left L5 nerve root. There is mild central stenosis. 2. At L5-S1 there is markedly severe left and severe right facet arthropathy. There is a posterior disc protrusion/extrusion with narrowing of the subarticular recess and with impingement on the traversing right S1 nerve root. There is a prominent left-sided disc protrusion with mass effect on the exiting left L5 nerve root. There is moderate to severe central stenosis. 3. At L3-L4 there is facet arthropathy and there is a broad-based posterior disc protrusion. There is narrowing of the subarticular recesses with impingement on the traversing L4 nerve roots bilaterally. There is moderate to severe central stenosis. There are bilateral foraminal disc protrusions, more prominent on the right with impingement on the exiting right L3 nerve root. 4. Spondylitic and facet arthropathic changes are also demonstrated at other levels as described above. 5. There are chronic compression fractures of T11, L2 and L4. There are no acute fractures. There is no abnormal osseous enhancement.
== END 2023-02-12 16:53 | disposition home or self-care (01) ==
LOC: HO.MRI 16:52
PROVIDERS: PCP Internal Medicine; Visit Provider Internal Medicine
DX: M53.86 Other specified dorsopathies, lumbar region (principal); G57.00 Lesion of sciatic nerve, unspecified lower limb
CPT/HCPCS: 72158; A9585

== ENCOUNTER 2023-02-18 14:00 | Outpatient (REF) | payer MEDICARE, SELFPAY ==
--- NOTE | ~2023-02-18 | US_ITS ---
EXAMINATION: NONINVASIVE ASSESSMENT OF THE ARTERIES OF BOTH LOWER EXTREMITIES INCLUDING BILATERAL LOWER EXTREMITY DUPLEX. CLINICAL INFORMATION: Peripheral vascular disease COMPARISON: None TECHNIQUE: duplex Doppler techniques with wave form analysis and measurement of velocities in the common femoral, profunda femoral, superficial femoral, popliteal, tibial and peroneal arteries. The study was performed only at rest. FINDINGS: Diffuse bilateral mild calcific atherosclerotic disease. RIGHT LEG Common femoral artery: 127 cm/s, Multiphasic Profunda femoris artery: 117 cm/s, Multiphasic Superficial femoral artery (proximal): 75 cm/s, Multiphasic Superficial femoral artery (mid): 86 cm/s, Multiphasic Superficial femoral artery (distal): 72 cm/s, Multiphasic Proximal Popliteal artery: 145 cm/s, Multiphasic Mid posterior tibial artery: 65 cm/s, Multiphasic LEFT LEG: Common femoral artery: 129 cm/s, Multiphasic Profunda femoris artery: 85 cm/s, Multiphasic Superficial femoral artery (proximal): 106 cm/s, Multiphasic Superficial femoral artery (mid): 91 cm/s, Multiphasic Superficial femoral artery (distal): 77 cm/s, Multiphasic Proximal Popliteal artery: 126 cm/s, Multiphasic Mid posterior tibial artery: 80 cm/s, Multiphasic US/US arterial duplex LE BI IMPRESSION: Mild calcific atherosclerotic disease. No hemodynamically significant stenosis.
== END 2023-02-18 14:01 | disposition home or self-care (01) ==
LOC: HO.US 14:00
PROVIDERS: Visit Provider Internal Medicine
DX: I73.9 Peripheral vascular disease, unspecified (principal)
CPT/HCPCS: 93925

== ENCOUNTER 2023-07-20 13:47 | Outpatient (AMB) | payer MEDICARE, SELFPAY ==
--- NOTE | 2023-07-20 13:57 | MHC.OFFVIS ---
Intake Vital Signs 07/20/23 14:09 Height 5 ft 2 in Weight 117 lb BMI 21.4 BP 140/75 H Blood Pressure Location Lt brachial Position Sitting Respiration 14 Pulse 112 H Pulse Source Pulse Oximeter Pulse Oximetry (%) 97 Oxygen Delivery Method Room Air Intake Visit Reasons: discuss results MRI/PT per Intake Note: patient comes in to discuss MRI results. Allergies clindamycin [CLINDAMYCIN] Allergy (Severe, Verified 07/20/23 14:10) DIARRHEA Penicillins [PCN] Allergy (Intermediate, Verified 07/20/23 14:10) Rash penicillin V Allergy (Unknown, Verified 07/20/23 14:10) Rash jax Allergy (Verified 07/20/23 14:10) could not breath HPI HPI Comments History of Present Illness Details Jumana is very pleasant 82 years old female who is back in my office accompanied by her son who is a colleague from physical therapy [facility]. She actually canceled medial branch block which was planned for her. The MRI was obtained end dictation is as above. Multiple changes on that MRI including evidence of old compression fractures, as well as significant widespread severe facet joint arthritis at multiple levels as well as nerve root compressions in multiple levels on both sides. We discussed situations at hands. The patient is very reluctant to go for the injections. I suggested neurosurgical consult and patient is not happy to hear about it. She reports to me that he can take 1 pill of Tylenol compliance manager or 1 pill of ibuprofen and she feels good again. However she is reluctant to take NSAIDs. The physical therapy is immediately available for her. She has in her household recliner stationary bicycle which she can exercise however she prefers to do gardening as a form of exercise. I recommended her if she is reluctant to take NSAIDs try willow bark tree preparations and turmeric for control of her pain. I recommended her that if she will change her mind about interventional pain management to give us a call and schedule the appointment with me. Prior: presents in my office with complains on pain in lower back with radiation into bilateral lower extremities to the posterior surface of bilateral hips and thighs as well as lateral surfaces of mostly right lower extremity at the level of the sheen.? No radiation below this level.? She reports claudication.? She reports getting pain alleviation when she walks however she feels pain increase after prolonged walking.? Most likely combination of the spinal stenosis and facet arthropathy exist in this case.? She reported that she had this pain started 3 months ago when she was lifting something heavy.?She was under care of her primary care physician for this pain.? She was sent for MRI of the lumbar spine ? She received some physical therapy for Parkinson's disease but never para physical therapy for her lower back.? She never received any injections.? Her past medical history significant for hypertension and Parkinson's she is on Levophed Op carbidopa medication.? Her past surgical history significant for hysterectomy while 30 years old.? She denies smoking cigarettes drinking alcohol she denies recreational drugs PFSH Medical History HTN (hypertension) Lymphoma Parkinson disease Vitamin D deficiency Surgical History H/O colonoscopy No pertinent past surgical history S/P partial hysterectomy Family History Father Myocardial infarction Mother Uterine cancer Sister Alzheimer disease Social History Housing: House Alcohol intake: current Alcohol intake frequency: does not drink Patient Tobacco Use Status: Never used Tobacco e-Cigarette/Vaping Use: Never Used Current occupational status: retired Cognitive needs: No Hearing needs: No Vision needs: Yes Review of Systems Const All systems reviewed & are unremarkable except as noted in HPI and below Reports no additional complaints Eyes Reports no additional complaints ENT Reports no additional complaints and Reports Normal hearing present Card Reports no additional complaints Resp Reports no additional complaints GI Reports no additional complaints Neuro Reports Normal hearing present, Denies Abnormal speech present and Denies Sensory deficit (Neuro) Physical Exam Vital Signs: Last Vital Signs Pulse 112 H 07/20/23 14:09 Resp 14 07/20/23 14:09 BP 140/75 H 07/20/23 14:09 Pulse Ox 97 07/20/23 14:09 Oxygen Delivery Method Room Air 07/20/23 14:09 BMI result Body Mass Index 21.4 Const General: no acute distress Nutritional Appearance: thin Orientation/consciousness: patient oriented x3 Eyes General: appearance normal, both eyes and all related structures Pupils: Equal, round and reactive pupils present EOM: EOMs intact bilaterally Neck Neck: Yes full ROM Chest Chest palpation & inspection: normal inspection of the chest Resp Effort & Inspection: normal respiratory effort, able to speak in complete sentences, normal respiratory pattern, no audible wheezes and no cough Cardio Jugular venous distension: no JVD GI Inspection: Yes normal to inspection Back/Spine/Pelvis Other: Demonstrates normal strength of bilateral lower extremities . Dorsiflexion and forward flexion of the foot reveals normal strength. Reports severe pain in the back with flexing forward and flexing backwards. Reports that flexing forward aggravates her pain more. However loading test is positive bilaterally. No tenderness on palpation on projection of the lumbar spine. However a significant tenderness on palpation in paraspinal regions. Admits Valsalva maneuver positive for pain increase. Denies incontinence with urine and/or stool. Denies numbness bilateral lower extremities. Neuro General: patient oriented x3 and gait normal Cranial nerves: Yes Equal, round and reactive pupils present and Yes Normal hearing present Speech: No Abnormal speech present Gait exam (Neuro): Normal gait present Motor exam (neuro): 5/5 motor strength present throughout Sensory Exam: No Sensory deficit (Neuro) Extrem General: No pedal edema Psych Speech and movement: Normal speech and movement present Affect: normal affect Attitude: cooperative Thought process: Normal thought process present Thought content: Normal thought content present Insight: Good insight present (Psych) Judgement: Good judgement present (Psych) Results Reviewed Results Reviewed: MR LUMBAR SPINE WITHOUT AND WITH CONTRAST CLINICAL INFORMATION: Assess for lesion of sciatic nerve. Lower back pain. COMPARISON: CT scan of the abdomen and pelvis 12/08/2022. Plain films of the lumbar spine 11/28/2022. TECHNIQUE: MRI of the lumbar spine was obtained using routine sequences with and without contrast. Intravenous contrast: Gadavist 7.5 mL. FINDINGS: VERTEBRAL BODIES AND PARASPINAL STRUCTURES: There is a mild levoscoliosis. There are mild retrolistheses of L1 on L2 and L2 on L3. There is multilevel narrowing of intervertebral disc height with loss of signal which is most severe at L4-L5 and L5-S1. There is invagination of disc into superior endplates of L2 and L3, demonstrated on prior imaging. There are degenerative endplate contour changes with fatty endplate signal at L4-L5. The study redemonstrates the loss of vertebral body height of T11, L2 and L4 which are chronic; these vertebrae have isointense signal to the adjacent osseous structures. No acute compression fractures are demonstrated. Overall, marrow signal is homogenous. There is no abnormal osseous enhancement. There is a small cyst in the posterior right hepatic lobe, seen on prior imaging. The visualized retroperitoneal and pelvic structures are unremarkable. CONUS MEDULLARIS AND CAUDA EQUINA: Normal, terminating at the level of L1-L2. The lower thoracic spinal cord appears normal, and there is no abnormal enhancement. The cauda equina nerve roots and filum terminale appear normal. SPINAL LEVELS: T12-L1: There is mild bilateral facet arthropathy. Disc contour is normal. There is no central stenosis or foraminal narrowing. L1-L2: There is mild to moderate bilateral facet arthropathy with ligamenta flava hypertrophy. There is a broad-based posterior disc protrusion which is more prominent to the right of midline with some distortion of the ventral thecal sac and with mild narrowing of the right subarticular recess. There is an inferior disc protrusion in the right neural foramen without definite exiting nerve root impingement. There is no central stenosis. L2-L3: There is moderate to severe right and moderate left facet arthropathy. There is posterior protrusion of the inferior body of L2 into the spinal canal with some flattening of the ventral thecal sac, but without significant central stenosis. There is narrowing of the bilateral subarticular recesses, and there is mild foraminal narrowing bilaterally. L3-L4: There is severe right and moderate to severe left facet arthropathy with ligamenta flava hypertrophy. There is a broad-based posterior disc protrusion which flattens the ventral thecal sac and narrows the subarticular recesses with impingement on the traversing L4 nerve roots bilaterally. There is moderate to severe central stenosis. There are bilateral foraminal disc protrusions, more prominent on the right with impingement on the exiting right L3 nerve root. L4-L5: There are moderate bilateral facet arthropathic changes. There are sequelae of a left-sided hemilaminectomy. There is a posterior disc protrusion which extends far laterally on the left and there is impingement on the exiting/extraforaminal left L4 nerve root. There is narrowing of the left subarticular recess with impingement on the traversing left L5 nerve root. There is a disc osteophyte complex in the right neural foramen with impingement on the exiting right L4 nerve root. There is mild central stenosis. L5-S1: There is markedly severe left and severe right facet arthropathy. There is a broad-based posterior disc protrusion with an annular fissure, with an extruded component extending into the right subarticular recess and into the right lateral recess of S1, and there is impingement on the traversing S1 nerve root with distortion of the ventral thecal sac. There is also mild narrowing of the left subarticular recess. There is a prominent left-sided disc protrusion with mass effect on the exiting left L5 nerve root. There is no foraminal nerve root impingement on the right. There is moderate to severe central stenosis. MR/MR lumbar spine wo/w con IMPRESSION: 1. There are sequelae of a left-sided hemilaminectomy at L4-L5. There is a posterior disc protrusion extending far laterally on the left with impingement on the exiting/extraforaminal left L4 nerve root. There is narrowing of the left subarticular recess with impingement on the traversing left L5 nerve root. There is mild central stenosis. ? 2. At L5-S1 there is markedly severe left and severe right facet arthropathy. There is a posterior disc protrusion/extrusion with narrowing of the subarticular recess and with impingement on the traversing right S1 nerve root. There is a prominent left-sided disc protrusion with mass effect on the exiting left L5 nerve root. There is moderate to severe central stenosis. ? 3. At L3-L4 there is facet arthropathy and there is a broad-based posterior disc protrusion. There is narrowing of the subarticular recesses with impingement on the traversing L4 nerve roots bilaterally. There is moderate to severe central stenosis. There are bilateral foraminal disc protrusions, more prominent on the right with impingement on the exiting right L3 nerve root. ? 4. Spondylitic and facet arthropathic changes are also demonstrated at other levels as described above. ? 5. There are chronic compression fractures of T11, L2 and L4. There are no acute fractures. There is no abnormal osseous enhancement. ? Assessment & Plan Assessment & Plan (1) Spondylosis, lumbar, with myelopathy: Code(s): M47.16 - Other spondylosis with myelopathy, lumbar region (2) Disc degeneration, lumbar: Code(s): M51.36 - Other intervertebral disc degeneration, lumbar region (3) Lower back pain: Code(s): M54.50 - Low back pain, unspecified (4) Spinal stenosis: Code(s): M48.00 - Spinal stenosis, site unspecified (5) Chronic pain syndrome: Code(s): G89.4 - Chronic pain syndrome Plan Patient is reluctant to try NSAIDs for her pain she is reluctant to do interventional pain management. Herbal remedies are recommended. She has severe changes on the MRI as above which could be amendable by potential injections, also minimally invasive neuro surgery. However patient is very reluctant to consider needle sticks and/or surgeries. She likes her gardening and reluctant to do physical therapy which is immediately available for her because of her son is working for our hospital as a physical therapist. Several herbal remedies were mentioned during today's conversation, also NSAIDs and Tylenol were carefully explained to the patient. Coding Level of Care Code Est Pt Level 4 (98500) Diagnoses Spondylosis, lumbar, with myelopathy M47.16 Disc degeneration, lumbar M51.36 Lower back pain M54.50 Spinal stenosis M48.00 Chronic pain syndrome G89.4
[2023-07-20 14:09] VITALS: BP 140/75; PULSE 112; RESP 14; O2SAT 97; BMI 21.4
== END 2023-07-20 14:55 | disposition home or self-care (01) ==
PROVIDERS: PCP Internal Medicine; Visit Provider Anesthesiology
DX: M47.16 Other spondylosis with myelopathy, lumbar region (principal); M51.36 Other intervertebral disc degeneration, lumbar region; M54.50 Low back pain, unspecified; M48.00 Spinal stenosis, site unspecified; G89.4 Chronic pain syndrome
CPT/HCPCS: 99214

== ENCOUNTER → 2023-07-20 13:47 | Outpatient (BNVA) | payer MEDICARE, SELFPAY | PROVIDERS: PCP Internal Medicine; Visit Provider Anesthesiology | DX: G89.4 Chronic pain syndrome (principal); M54.50 Low back pain, unspecified; M47.16 Other spondylosis with myelopathy, lumbar region; M48.062 Spinal stenosis, lumbar region with neurogenic claudication; M51.36 Other intervertebral disc degeneration, lumbar region | CPT/HCPCS: 99212 ==

== ENCOUNTER 2023-08-13 16:59 | Emergency (ER) | payer MEDICARE, SELFPAY ==
--- NOTE | ~2023-08-13 | XR_ITS ---
EXAMINATION: XR ABDOMEN KUB CLINICAL INDICATION: Pain. COMPARISON: None available. TECHNIQUE: AP view of the abdomen. FINDINGS: The bowel gas pattern is normal with no evidence of ileus or obstruction. There is retained stool throughout most prominent in the rectosigmoid. No unusual soft tissue calcifications are noted. The bones are unremarkable. XR/XR abdomen 1V IMPRESSION: Nonspecific bowel gas pattern. Retained stool throughout.
[2023-08-13 17:44] VITALS: BP 141/82; PULSE 89; RESP 14; TEMP 36.6; O2SAT 98; BMI 22.1
--- NOTE | 2023-08-13 17:45 | ED.GENADULT ---
HPI - General Adult General Chief complaint: Abdominal Pain Stated complaint: abd pain Time Seen by Provider: 08/13/23 22:24 Source: patient and family Mode of arrival: ambulatory Limitations: no limitations History of Present Illness HPI narrative: Patient is an 82-year-old female who presents emergency department for evaluation of constipation with abdominal discomfort. Her son is present at bedside. Patient states that she has experienced similar symptoms in the past related to constipation requiring manual disimpaction. She has had intermittent nausea over the past 2 days denies nausea today and has not had vomiting. Reports last bowel movement was 5 days ago. She has trialed MiraLax, senna, lactulose x3 without any bowel movement. She feels as though there is stool within her rectum which he is unable to pass it. She denies fevers, chills, bright red blood per rectum, recent melena, history of bowel obstruction Related Data Home Medications Medication Instructions Recorded Confirmed carbidopa 25 mg-levodopa 100 mg 1 tab PO TID 09/18/20 02/09/23 tablet rasagiline 0.5 mg tablet 0.5 mg PO DAILY 09/18/20 02/09/23 Previous Rx's Medication Instructions Recorded lactulose 10 gram/15 mL (15 mL) 10 g (15 mL) PO BEDTIME #1,440 mL 11/28/22 oral solution docusate sodium 100 mg capsule 100 mg PO DAILY #30 caps 12/08/22 (Colace) polyethylene glycol 3350 17 17 g PO DAILY #238 grams 12/08/22 gram/dose oral powder (Miralax) lisinopril 10 1 tab PO DAILY #90 tabs 05/29/23 mg-hydrochlorothiazide 12.5 mg tablet amlodipine 5 mg tablet 5 mg PO DAILY #90 tabs 06/03/23 Allergies Allergy/AdvReac Type Severity Reaction Status Date / Time clindamycin [CLINDAMYCIN] Allergy Severe DIARRHEA Verified 07/20/23 14:10 Penicillins [PCN] Allergy Intermediate Rash Verified 07/20/23 14:10 penicillin V Allergy Unknown Rash Verified 07/20/23 14:10 jax Allergy could not Verified 07/20/23 14:10 breath Review of Systems Review of Systems: Yes all other systems are reviewed and are negative PMFSH Past Medical History Attestation statement: The following information was validated with the patient. Source: old records reviewed Medical History Lymphoma Vitamin D deficiency HTN (hypertension) Parkinson disease Surgical History H/O colonoscopy S/P partial hysterectomy No pertinent past surgical history Family History Family History Father Myocardial infarction Mother Uterine cancer Sister Alzheimer disease Social History Social History Housing: House Alcohol intake: current Alcohol intake frequency: does not drink Patient Tobacco Use Status: Never used Tobacco e-Cigarette/Vaping Use: Never Used Advance Directives: No Advance Directives Information Provided: No Current occupational status: retired Cognitive needs: No Hearing needs: No Vision needs: Yes Physical Exam ED Vital Signs: Vital Signs - 24 hr 08/13/23 17:44 Temperature 98 F Pulse Rate 89 Respiratory Rate 14 Blood Pressure 141/82 H Pulse Oximetry 98 Oxygen Delivery Method Room Air BMI result Body Mass Index 22.1 Appearance: Alert.?Oriented to person, place and time. No acute distress.?Normal affect. Eyes: Pupils equal, round and reactive to light.? ENT: Pharynx normal.?? Neck: Normal inspection.? Neck supple.?? CVS: Heart sounds normal. Normal heart rate and rhythm.? Pulses normal.?? Respiratory: No respiratory distress.? Lung sounds clear to auscultation bilaterally?? Abdomen: Soft and non-tender. Normoactive bowel sounds. ? rectal: performed with marketing operations associate; ED RN. Rectal vault with soft stool present, external hemorrhoids without active bleed Skin: Skin warm and dry.? Normal skin color.? Neuro: Moves all extremities spontaneously. Sensation intact bilaterally. No focal neuro deficits. Ambulates with normal steady gait. Course Course Course Narrative: This is a rapid medical exam: Additional HPI, ROS, PE not included below will be deferred to primary provider. Patient is an 82-year-old female presenting to the emergency department with son who reports patient has had abdominal pain and constipation. Patient states she has tried Miralax, senna, and 3 lactulose but has not had a bowel movement for 4 days. Reports nausea but denies vomiting. Denies history of SBO. States she has the urge to have a bowel movement but when she sits on the toilet is unable to go. History of constipation requiring manual disimpaction in the past. Plan: UA, labs, KUB Reevaluation(s) Reevaluation #1: she has been able to have a small bowel movement after the enema. I discussed with her oral options, patient to receive a dose of magnesia and Dulcolax in the emergency department. Plan for discharge home, outpatient follow-up with primary care provider for further management. Discussed worrisome signs and symptoms that would warrant re-evaluation in the emergency department. All questions were answered. Stable for discharge. Time: 01:41 Medications Administered Discontinued Medications Generic Name Dose Route Start Last Admin Trade Name Freq PRN Reason Stop Dose Admin Acetaminophen 650 mg 08/13/23 19:32 08/13/23 23:19 Acetaminophen 325 Mg Tablet PO 08/13/23 19:33 Not Given ONCE ONE Sodium Biphosphate/Sodium Phosphate 133 ml 08/13/23 23:10 08/14/23 00:48 Sodium Phosphate,[place]-Dibasic 133 Ml Enema TN 08/13/23 23:11 133 ml ONCE ONE Administration Medical Decision Making Medical Decision Making [facility] Narrative: patient is an 82-year-old female with past medical history of hypertension, lymphoma, Parkinson's diseasewho presents to the emergency department for evaluation of constipation x4 days despite taking her bowel regimen. She has a history of chronic constipation requiring fecal impactions in the emergency department. Her abdominal examination is benign, soft and nontender, no rigidity or guarding. Reviewed ABD XR which reveals stool burden but no evidence of obstructive bowel gas pattern. At this time of the lower suspicion clinically for bowel obstruction given benign examination. Most likely she has chronic constipation secondary to age as well as Parkinson's disease. Upon examination rectal vault with soft stool present, partial manual disimpaction was performed with a gloved finger but continued to have persistent feeling of the urge to void, therefore a Fleet's enema was administered. Differential Diagnosis Differential Diagnoses: The differential diagnosis associated with the presentation includes ( as noted above) Lab Data [facility] Lab Attestation statement: I reviewed the patient's lab results. CBC is without leukocytosis or anemia. CMP is overall unremarkable. 08/13/23 18:00 08/13/23 18:00 Labs: Lab Results 08/13/23 Range/Units 18:00 WBC 7.6 (4.8-10.8) X10*3/uL RBC 4.58 (4.20-5.50) X10*6/uL Hgb 13.6 (12.0-16.0) g/dl Hct 39.8 (37.0-47.0) % MCV 86.9 (80.0-98.0) fL MCH 29.7 (27.0-33.0) pg MCHC 34.2 (31.0-35.0) g/dl RDW 13.1 (11.0-16.0) % Plt Count 226 (160-400) X10*3/uL MPV 10.2 (9.4-12.3) fL Immature Gran % (Auto) 0.8 H (0.0-0.4) % Neut % (Auto) 59.1 (45-73) % Lymph % (Auto) 28.8 (20-40) % [place] % (Auto) 8.3 (2-11) % Eos % (Auto) 2.5 (0-4) % Baso % (Auto) 0.5 (0-2) % Lymph # (Auto) 2.2 (1.2-4.9) X10*3/uL [place] # (Auto) 0.6 (0.1-1.2) X10*3/uL Eos # (Auto) 0.2 (0.0-0.4) X10*3/uL Baso # (Auto) 0.0 (0.0-0.2) X10*3/uL Abs Immat Gran (auto) 0.06 H (0.00-0.03) X10*3/uL Absolute Neuts (auto) 4.5 (2.0-8.3) x10*3/uL Absolute Nucleated RBC 0.000 (0.0-0.012) X10*3/uL Nucleated RBC % (auto) 0.0 (0.0-0.2) /100WBC Sodium 139 (135-145) mmol/L Potassium 3.8 (3.3-5.1) mmol/L Chloride 100 (96-108) mmol/L Carbon Dioxide 27 (22-29) mmol/L Anion Gap 16 (12-20) BUN 20 H (9-16) mg/dL Creatinine 0.83 (0.5-1.4) mg/dL Estim Creat Clear Calc 41.3 Estimated GFR > 60 Random Glucose 111 (60-115) mg/dL Calcium 9.6 (8.4-10.2) mg/dL Total Bilirubin 0.6 (0.0-1.0) mg/dL AST 24 (5-31) U/L ALT < 5 (0-31) U/L Alkaline Phosphatase 52 (39-117) U/L Total Protein 7.6 (6.5-8.0) g/dL Albumin 4.4 (3.5-5.0) g/dL Independent Interpretation I performed an independent interpretation of an: Plain X-Ray Radiology Impression Discussion of test interpretation with radiology: I have reviewed the radiologist's reading. Radiologist Impression: XR/XR abdomen 1V IMPRESSION: Nonspecific bowel gas pattern. Retained stool throughout. Independent Historian Clinical information obtained from an independent historian. History obtained from or confirmed by: Other ( Son present at bedside who confirms history) External Record Review External record reviewed: Outpatient record Discharge Plan Discharge Clinical Impression: Constipation Patient Disposition: Home, Self-Care Instructions: Constipation (ED), High Fiber Diet (ED), Fleet Enema (ED) Additional Instructions: Continue taking your bowel regimen medications as prescribed. It is important to follow-up with your primary care provider for further management. While in the emergency department stool was manually disimpacted from your rectum, you received a fleets enema in addition to Dulcolax and milk of magnesia to help you have a bowel movement. Please follow instructions regarding a high-fiber diet And be sure to increase fluid intake as well. You may return back to emergency department any new or worsening symptoms or concerns. Such as abdominal pain, bright red blood from the rectum, black stools. Prescriptions: No Action lisinopril-hydrochlorothiazide 10-12.5 mg tablet 1 tab PO DAILY Qty: 90 3RF amlodipine 5 mg tablet 5 mg PO DAILY Qty: 90 3RF polyethylene glycol 3350 [Miralax] 17 gram/dose powder 17 g PO DAILY Qty: 238 0RF docusate sodium [Colace] 100 mg capsule 100 mg PO DAILY Qty: 30 0RF rasagiline 0.5 mg tablet 0.5 mg PO DAILY carbidopa-levodopa 25-100 mg tablet 1 tab PO TID lactulose 10 gram/15 mL (15 mL) solution 10 g PO BEDTIME Qty: 1440 3RF Referrals: Radha Cramer MD [Primary Care Provider] -
[2023-08-13 18:06] LABS: MANUAL DIFF FLAG NO
[2023-08-13 18:25] LABS: Basophils Percent Auto 0.5 % (0-2); Eosinophils Absolute Auto 0.2 X10*3/uL (0.0-0.4); Eosinophils Percent Auto 2.5 % (0-4); Hematocrit 39.8 % (37.0-47.0); Hemoglobin 13.6 g/dl (12.0-16.0); Imm Gran Abs Auto 0.06 X10*3/uL (0.00-0.03); Imm Gran Pct Auto 0.8 % (0.0-0.4); Lymphocytes Absolute Auto 2.2 X10*3/uL (1.2-4.9); Lymphocytes Percent Auto 28.8 % (20-40); Mean Corpuscular HGB Conc 34.2 g/dl (31.0-35.0); Mean Corpuscular Hemoglobin 29.7 pg (27.0-33.0); Mean Corpuscular Volume 86.9 fL (80.0-98.0); Mean Platelet Volume 10.2 fL (9.4-12.3); Monocytes Absolute Auto 0.6 X10*3/uL (0.1-1.2); Monocytes Percent Auto 8.3 % (2-11); Neutrophils Absolute Auto 4.5 x10*3/uL (2.0-8.3); Neutrophils Percent Auto 59.1 % (45-73); Platelet Count 226 X10*3/uL (160-400); Red Blood Count 4.58 X10*6/uL (4.20-5.50); Red Cell Distribution Width 13.1 % (11.0-16.0); White Blood Count 7.6 X10*3/uL (4.8-10.8)
[2023-08-13 18:27] LABS: Alanine Aminotransferase < 5 U/L (0-31); Albumin Level 4.4 g/dL (3.5-5.0); Alkaline Phosphatase 52 U/L (39-117); Anion Gap 16 (12-20); Aspartate Amino Transferase 24 U/L (5-31); Bilirubin Total 0.6 mg/dL (0.0-1.0); Blood Urea Nitrogen 20 mg/dL (9-16); Calcium 9.6 mg/dL (8.4-10.2); Carbon Dioxide 27 mmol/L (22-29); Chloride 100 mmol/L (96-108); Creatinine Clr Calc Pharmacy 41.3; Estimated Glomerular Filt Rate > 60; Glucose Random 111 mg/dL (60-115); Potassium 3.8 mmol/L (3.3-5.1); Sodium 139 mmol/L (135-145); Total Protein 7.6 g/dL (6.5-8.0)
[2023-08-14] MEDS: Sodium Phosphate,Mono-Dibasic 133 ML ENEMA PR (00:48)
--- NOTE | 2023-08-14 00:49 | PC.NURSE ---
SETTER AUTOMAT[employer]INNING LAT[employer] to bedside for a manual disimpaction attempt. Per [employer]TER [employer]OM[employer]HE there was only soft stool, nothing hard for the SETTER AUTOMATIC SPINNING LATHE to remove. SETTER AUTOMATIC SPINNING LATHE reports that she did attempt to loosen the stool and that she also instilled the enema that was at bedside (MAR admin, manual barcode completed as RN did not instill/admin). Pt tolerating well at this time, call granado in reach and commode at bedside. RN placed nonslip socks on the pt's feet in [facility].
[2023-08-14] MEDS: bisacodyL 5 MG TABLET.DR 10 MG PO (02:12)
[2023-08-14] MEDS: Milk of Magnesia 30 ML ORAL.SUSP PO (02:13)
[2023-08-14 02:22] VITALS: BP 142/66; PULSE 82; RESP 16; O2SAT 97
== END 2023-08-14 02:25 | disposition home or self-care (01) ==
PROVIDERS: Registered Nurse Emergency; Emergency Provider Emergency Medicine; PCP Internal Medicine
DX: K59.00 Constipation, unspecified (principal); I10 Essential (primary) hypertension; G20 Parkinson's disease; Z79.899 Other long term (current) drug therapy
CPT/HCPCS: 36415; 74018; 80053; 85025; 99283

== ENCOUNTER 2023-08-19 13:13 | Outpatient (AMB) | payer MEDICARE, SELFPAY ==
[2023-08-19 13:40] VITALS: BP 122/68; PULSE 74; O2SAT 96; BMI 21.9
--- NOTE | 2023-08-19 13:40 | MHC.PC.OV ---
Vital Signs 08/19/23 13:40 Height 5 ft 2 in Weight 120 lb BMI 21.9 BP 122/68 Blood Pressure Location Lt brachial Position Sitting Pulse 74 Pulse Source Pulse Oximeter Pulse Oximetry (%) 96 Oxygen Delivery Method Room Air Intake Visit Reasons: [facility] constipation Intake Note: Pt is here today for ER follow up visit. Allergies clindamycin [CLINDAMYCIN] Allergy (Severe, Verified 08/19/23 13:55) DIARRHEA Penicillins [PCN] Allergy (Intermediate, Verified 08/19/23 13:55) Rash penicillin V Allergy (Unknown, Verified 08/19/23 13:55) Rash jax Allergy (Verified 08/19/23 13:55) could not breath Medication List - Last Reconciled 08/19/23 by Radha Cramer MD amlodipine 5 mg PO DAILY carbidopa-levodopa 25-100 mg 1 tab PO TID docusate sodium (Colace) 100 mg PO DAILY lactulose 10 grams (15 mL) PO BEDTIME lisinopril-hydrochlorothiazide 10-12.5 mg 1 tab PO DAILY polyethylene glycol 3350 (Miralax) 17 grams PO DAILY rasagiline 0.5 mg PO DAILY Tobacco use date assessed: 08/19/23 Fall risk assessment: No Falls in past year Last assessed Fall Risk: 08/19/23 Dental Screening Dental Screen Date: 08/19/23 Did you have a dental visit in the last 12 months?: Yes Did you have a dental problem in the last 6 months where you did not have access to dental care?: No Was dental information given to patient?: Patient has dentist HPI [facility] constipation HPI Details Patient presents for the follow-up of ER visit for constipation. She has been taking MiraLax and stool softener. Patient denies hematochezia melena abdominal pain. She is requesting referral for colonoscopy. Hypertension is controlled on current medications. Parkinson's disease is stable and patient follows up with neurologist. COUNT INCLUDES [facility] Medical History Lymphoma Vitamin D deficiency HTN (hypertension) Parkinson disease Surgical History H/O colonoscopy S/P partial hysterectomy No pertinent past surgical history Family History Father Myocardial infarction Mother Uterine cancer Sister Alzheimer disease Social History Housing: House Alcohol intake: current Alcohol intake frequency: does not drink Patient Tobacco Use Status: Never used Tobacco e-Cigarette/Vaping Use: Never Used Current occupational status: retired Cognitive needs: No Hearing needs: No Vision needs: Yes Questionnaire Thrive Questionnaire Date Thrive assessed: 11/28/22 ORION-7 AMB Questionnaire ORION-7 Date ORION - 7 assessed: 11/28/22 Source: Developed by Drs. Lázaro Powell, Maribell De Paz, Travis Lundy and colleagues, with an educational zoë from [employer]. Review of Systems Const All systems reviewed & are unremarkable except as noted in HPI and below Reports no additional complaints Eyes Reports no additional complaints ENT Reports no additional complaints Card Reports no additional complaints Resp Reports no additional complaints GI Reports no additional complaints Reports no additional complaints Physical exam (Primary Care) Vital Signs: Last Vital Signs Pulse 74 08/19/23 13:40 BP 122/68 08/19/23 13:40 Pulse Ox 96 08/19/23 13:40 Oxygen Delivery Method Room Air 08/19/23 13:40 BMI result Body Mass Index 21.9 Tobacco/Smoking Status: Tobacco use Status Tobacco use date assessed 08/19/23 08/19/23 13:58 Patient Tobacco Use Status Never used Tobacco 08/19/23 13:58 e-Cigarette/Vaping Use Never Used 08/19/23 13:40 Thrive Assessment: Date of Thrive Assessment Date Thrive assessed 11/28/22 08/19/23 13:40 Const General: no acute distress HENMT Head: Yes normal to inspection Ears: hearing grossly normal bilaterally Neck Neck: Yes supple Resp Effort & Inspection: normal respiratory effort Auscultation: clear to auscultation bilaterally Cardio Rhythm: regular rhythm Heart sounds: S1 normal heart sound present and S2 normal heart sound present GI Inspection: Yes normal to inspection Palpation (GI): Soft to palpation Percussion: Yes normal to percussion Auscultation: normal bowel sounds Assessment and Plan Assessment & Plan (1) Constipation: Code(s): K59.00 - Constipation, unspecified Plan: Continue MiraLax and stool softeners increase fluid intake and fiber. Cologuard will be sent and patient referred to GI (2) Spinal stenosis: Code(s): M48.00 - Spinal stenosis, site unspecified Plan: Increase physical activity and regular walking discussed with the patient (3) HTN (hypertension): Code(s): I10 - Essential (primary) hypertension Plan: Continue current medications check comprehensive (4) Parkinson disease: Comment: Dr. Cramer Code(s): G20 - Parkinson's disease Plan: Continue current medications and follow-up with Neurology Orders: Orders Comprehensive Met. Panel Today G20 - Parkinson's disease, I10 - Essential (primary) hypertension, M48.00 - Spinal stenosis, site unspecified Complete Blood Count Auto Diff Today G20 - Parkinson's disease, I10 - Essential (primary) hypertension, M48.00 - Spinal stenosis, site unspecified TSH reflex Free T4 Today G20 - Parkinson's disease, I10 - Essential (primary) hypertension, M48.00 - Spinal stenosis, site unspecified Referrals Gastroenterology Referral G20 - Parkinson's disease, I10 - Essential (primary) hypertension, K59.00 - Constipation, unspecified, M48.00 - Spinal stenosis, site unspecified, Z00.00 - Encounter for general adult medical examination without abnormal findings Cologuard Test G20 - Parkinson's disease, I10 - Essential (primary) hypertension, M48.00 - Spinal stenosis, site unspecified, Z12.11 - Encounter for screening for malignant neoplasm of colon, Z12.12 - Encounter for screening for malignant neoplasm of rectum Coding Level of Care Code Est Pt Level 4 (20538) Diagnoses Constipation K59.00 Spinal stenosis M48.00 HTN (hypertension) I10 Parkinson disease G20
== END 2023-08-19 14:31 | disposition home or self-care (01) ==
PROVIDERS: PCP Internal Medicine; Visit Provider Internal Medicine
DX: I10 Essential (primary) hypertension (principal); K59.00 Constipation, unspecified; M48.00 Spinal stenosis, site unspecified; G20 Parkinson's disease
CPT/HCPCS: 99214

== ENCOUNTER 2023-08-19 14:31 | Outpatient (REF) | payer MEDICARE, SELFPAY ==
[2023-08-19 16:00] LABS: MANUAL DIFF FLAG NO
[2023-08-19 16:06] LABS: Basophils Percent Auto 0.4 % (0-2); Eosinophils Absolute Auto 0.2 X10*3/uL (0.0-0.4); Eosinophils Percent Auto 2.8 % (0-4); Hematocrit 39.7 % (37.0-47.0); Hemoglobin 13.3 g/dl (12.0-16.0); Imm Gran Abs Auto 0.01 X10*3/uL (0.00-0.03); Imm Gran Pct Auto 0.2 % (0.0-0.4); Lymphocytes Absolute Auto 2.3 X10*3/uL (1.2-4.9); Lymphocytes Percent Auto 40.9 % (20-40); Mean Corpuscular HGB Conc 33.5 g/dl (31.0-35.0); Mean Corpuscular Hemoglobin 29.6 pg (27.0-33.0); Mean Corpuscular Volume 88.2 fL (80.0-98.0); Mean Platelet Volume 10.6 fL (9.4-12.3); Monocytes Absolute Auto 0.5 X10*3/uL (0.1-1.2); Monocytes Percent Auto 8.3 % (2-11); Neutrophils Absolute Auto 2.7 x10*3/uL (2.0-8.3); Neutrophils Percent Auto 47.4 % (45-73); Platelet Count 247 X10*3/uL (160-400); Red Cell Distribution Width 12.8 % (11.0-16.0); White Blood Count 5.7 X10*3/uL (4.8-10.8)
[2023-08-19 16:29] LABS: Alanine Aminotransferase < 5 U/L (0-31); Albumin Level 4.3 g/dL (3.5-5.0); Alkaline Phosphatase 51 U/L (39-117); Anion Gap 10 (12-20); Aspartate Amino Transferase 19 U/L (5-31); Bilirubin Total 0.4 mg/dL (0.0-1.0); Blood Urea Nitrogen 16 mg/dL (9-16); Calcium 9.6 mg/dL (8.4-10.2); Carbon Dioxide 30 mmol/L (22-29); Chloride 101 mmol/L (96-108); Estimated Glomerular Filt Rate > 60; Glucose Random 95 mg/dL (60-115); Potassium 3.9 mmol/L (3.3-5.1); Sodium 137 mmol/L (135-145); Total Protein 7.3 g/dL (6.5-8.0)
== END 2023-08-19 14:32 | disposition home or self-care (01) ==
LOC: HO.HMGCLDS 14:31
PROVIDERS: PCP Internal Medicine; Visit Provider Internal Medicine
DX: M48.00 Spinal stenosis, site unspecified (principal); I10 Essential (primary) hypertension; G20 Parkinson's disease
CPT/HCPCS: 36415; 80053; 84443; 85025

== ENCOUNTER 2023-10-14 09:47 | Emergency (ER) | payer MEDICARE, SELFPAY ==
--- NOTE | ~2023-10-14 | XR_ITS ---
EXAMINATION: XR ABDOMEN KUB CLINICAL INDICATION: No bowel movements for 5 days with pain abdomen COMPARISON: None available. TECHNIQUE: AP view of the abdomen. FINDINGS: There is moderate stool and gas seen throughout the colon consistent with constipation. Mild gaseous distention of left colon is noted. No organomegaly. No obvious radiopaque calculi. Mild degenerative disc changes L4-L5 disc level. XR/XR KUB IMPRESSION: 1. Moderate constipation. 2. Mild degenerative disc changes L4-L5 disc level.
[2023-10-14 10:00] VITALS: BP 130/70; PULSE 93; RESP 18; TEMP 36.7; O2SAT 93; BMI 22.1
--- NOTE | 2023-10-14 11:21 | ED_ITS ---
HPI - General Adult General Chief complaint: General Medical Stated complaint: Difficulty w/ Bowel Movement Time Seen by Provider: 10/14/23 11:06 Source: patient Mode of arrival: ambulatory Limitations: no limitations History of Present Illness HPI narrative: 83-year-old female came in for evaluation of constipation for the past 5 days. Patient had frequent ED visits for constipation, patient was prescribed MiraLax and stool softener but she is not compliant with her medication. Past abdominal surgery is significant for partial hysterectomy and tubal ligation. Patient feels abdomen is distended and bloated but no abdominal pain, passing flatus, No nausea or vomiting. Related Data Home Medications Medication Instructions Recorded Confirmed carbidopa 25 mg-levodopa 100 mg 1 tab PO TID 09/18/20 08/19/23 tablet rasagiline 0.5 mg tablet 0.5 mg PO DAILY 09/18/20 08/19/23 Previous Rx's Medication Instructions Recorded lactulose 10 gram/15 mL (15 mL) 10 g (15 mL) PO BEDTIME #1,440 mL 11/28/22 oral solution docusate sodium 100 mg capsule 100 mg PO DAILY #30 caps 12/08/22 (Colace) polyethylene glycol 3350 17 17 g PO DAILY #238 grams 12/08/22 gram/dose oral powder (Miralax) lisinopril 10 1 tab PO DAILY #90 tabs 05/29/23 mg-hydrochlorothiazide 12.5 mg tablet amlodipine 5 mg tablet 5 mg PO DAILY #90 tabs 06/03/23 Allergies Allergy/AdvReac Type Severity Reaction Status Date / Time clindamycin [CLINDAMYCIN] Allergy Severe DIARRHEA Verified 10/14/23 10:00 Penicillins [PCN] Allergy Intermediate Rash Verified 10/14/23 10:00 penicillin V Allergy Unknown Rash Verified 10/14/23 10:00 jax Allergy could not Verified 10/14/23 10:00 breath Review of Systems 2 Review of Systems: All other systems are reviewed and are negative Constitutional: Reports as per HPI and Reports no additional constitutional complaints Eyes: Reports as per HPI and Reports no additional eye complaints Reports system reviewed and no additional complaints, except as documented Cardiovascular: Reports as per HPI and Reports no additional cardiovascular complaints Respiratory: Reports as per HPI and Reports no additional respiratory complaints Gastrointestinal: Reports as per HPI and Reports no additional gastrointestinal complaints Genitourinary: Reports no additional female genitourinary complaints Musculoskeletal: Reports no additional musculoskeletal complaints Skin/Breast: Reports system reviewed and no additional complaints, except as docu Psychiatric: Reports no additional psychiatric complaints Endocrine: Reports no additional endocrine complaints Hematologic/Lymphatic: Reports no additional hematologic/lymphatic complaints Allergic/Immunologic: Reports no additional allergic/immunologic complaints Reports system reviewed and no additional complaints, except as documented and Reports Abnormal speech present ON LICENSE OF [facility] Past Medical History Medical History Lymphoma Vitamin D deficiency HTN (hypertension) Parkinson disease Surgical History H/O colonoscopy S/P partial hysterectomy No pertinent past surgical history Family History Family History Father Myocardial infarction Mother Uterine cancer Sister Alzheimer disease Social History Housing: House Alcohol intake: current Alcohol intake frequency: does not drink Patient Tobacco Use Status: Never used Tobacco Smoked in Last 30 Days: No e-Cigarette/Vaping Use: Never Used Use of substances other than those prescribed or required for medical reasons: No Advance Directives: Yes Advance Directives on File: Yes Advance Directives Date on File: 02/18/23 Current occupational status: retired Cognitive needs: No Hearing needs: No Vision needs: Yes Physical Exam ED Vital Signs: Vital Signs - 24 hr 10/14/23 10:00 10/14/23 12:29 Temperature 98.0 F 97.6 F Pulse Rate 93 102 H Respiratory Rate 18 13 Blood Pressure 130/70 156/89 H Pulse Oximetry 93 100 Oxygen Delivery Method Room Air Room Air BMI result Body Mass Index 22.1 Vital signs have been reviewed and appear to be correct. Blood pressure elevated. Heart rate normal. Respiratory rate normal. Temperature normal. Oxygen saturation normal. Appearance: Alert. Oriented X3. No acute distress. Head: Normal external exam. Normocephalic. Atraumatic. No Hernandez signs noted. No raccoon eyes noted Eyes: PERRLA. EOMI. Conjunctiva and sclera normal. Eyelids normal. ENT: TM's Normal. Pharynx normal. Uvula midline. Moist mucous membranes. No trismus noted. No drooling noted. No muffled voice noted. Neck: Normal inspection. Neck supple. FROM. No adenopathy. Thyroid Normal. No meningeal signs. No neck mass noted. CVS: Normal heart rate and rhythm. Heart sound normal. No murmurs noted. Pulses normal throughout. Respiratory: No respiratory distress. Painless inspiration. Breath sounds normal. No wheezes/rales/rhonchi noted. Chest nontender. No accessory muscle usage noted or decreased air movement noted. Abdomen: Soft and nontender. Bowel sounds normal in all 4 quadrants. No distention noted. No organomegaly noted. No visible injury noted. Rectal exam: Hard stool in the vault, good amount of stool disimpaction at the bedside patient now have to use the bathroom. Back: No CVA tenderness. Full range of motion noted. Skin: Skin warm and dry. Normal skin color. Normal skin turgor. No rashes/lesions/lacerations noted. Extremities: No lower extremity edema. Extremities exhibit normal range of motion. Extremities nontender. Neuro: Oriented X 3. Cranial nerve exam: II-XII are grossly intact No motor deficit. No sensory deficit. Reflexes normal. Course Reevaluation(s) Reevaluation #1: 83-year-old female with history of constipation, patient had a partial disimpaction then followed by bowel movement, patient feels better, no abdominal pain, no nausea, no vomiting, no fever chills. X-ray is showing constipation. After bowel movement patient is feeling better will discharge. Time: 13:15 Medications Administered Discontinued Medications Generic Name Dose Route Start Last Admin Trade Name Freq PRN Reason Stop Dose Admin Acetaminophen 650 mg 10/14/23 12:04 10/14/23 12:30 Acetaminophen 325 Mg Tablet PO 10/14/23 12:05 Not Given ONCE ONE Medical Decision Making Differential Diagnosis Differential Diagnoses: The differential diagnosis associated with the presentation includes ( Constipation, small bowel obstruction, lateralized abnormality, dehydration, severe anemia.) Admission/Observation Consideration of admission/observation: Escalation of care including admission/observation considered Lab Data MDM Lab Attestation statement: I reviewed the patient's lab results. 10/14/23 12:37 10/14/23 12:37 Labs: Lab Results 10/14/23 Range/Units 12:37 WBC 9.8 (4.8-10.8) X10*3/uL RBC 4.93 (4.20-5.50) X10*6/uL Hgb 14.5 (12.0-16.0) g/dl Hct 43.1 (37.0-47.0) % MCV 87.4 (80.0-98.0) fL MCH 29.4 (27.0-33.0) pg MCHC 33.6 (31.0-35.0) g/dl RDW 12.8 (11.0-16.0) % Plt Count 209 (160-400) X10*3/uL MPV 10.6 (9.4-12.3) fL Immature Gran % (Auto) 0.2 (0.0-0.4) % Neut % (Auto) 73.9 H (45-73) % Lymph % (Auto) 19.2 L (20-40) % [place] % (Auto) 5.8 (2-11) % Eos % (Auto) 0.6 (0-4) % Baso % (Auto) 0.3 (0-2) % Lymph # (Auto) 1.9 (1.2-4.9) X10*3/uL [place] # (Auto) 0.6 (0.1-1.2) X10*3/uL Eos # (Auto) 0.1 (0.0-0.4) X10*3/uL Baso # (Auto) 0.0 (0.0-0.2) X10*3/uL Abs Immat Gran (auto) 0.02 (0.00-0.03) X10*3/uL Absolute Neuts (auto) 7.2 (2.0-8.3) x10*3/uL Absolute Nucleated RBC 0.000 (0.0-0.012) X10*3/uL Nucleated RBC % (auto) 0.0 (0.0-0.2) /100WBC Sodium 137 (135-145) mmol/L Potassium 3.6 (3.3-5.1) mmol/L Chloride 100 (96-108) mmol/L Carbon Dioxide 28 (22-29) mmol/L Anion Gap 13 (12-20) BUN 19 H (9-16) mg/dL Creatinine 0.70 (0.5-1.4) mg/dL Estim Creat Clear Calc 48.1 Estimated GFR > 60 Random Glucose 91 (60-115) mg/dL Calcium 9.7 (8.4-10.2) mg/dL Discharge Plan Discharge Clinical Impression: Constipation Patient Disposition: Home, Self-Care Instructions: Constipation (ED) Prescriptions: No Action lisinopril-hydrochlorothiazide 10-12.5 mg tablet 1 tab PO DAILY Qty: 90 3RF amlodipine 5 mg tablet 5 mg PO DAILY Qty: 90 3RF polyethylene glycol 3350 [Miralax] 17 gram/dose powder 17 g PO DAILY Qty: 238 0RF docusate sodium [Colace] 100 mg capsule 100 mg PO DAILY Qty: 30 0RF rasagiline 0.5 mg tablet 0.5 mg PO DAILY carbidopa-levodopa 25-100 mg tablet 1 tab PO TID lactulose 10 gram/15 mL (15 mL) solution 10 g PO BEDTIME Qty: 1440 3RF Referrals: Radha Cramer MD [Primary Care Provider] -
[2023-10-14 12:29] VITALS: BP 156/89; PULSE 102; RESP 13; TEMP 36.4; O2SAT 100
[2023-10-14 12:41] LABS: MANUAL DIFF FLAG NO
[2023-10-14 12:44] LABS: Basophils Percent Auto 0.3 % (0-2); Eosinophils Absolute Auto 0.1 X10*3/uL (0.0-0.4); Eosinophils Percent Auto 0.6 % (0-4); Hematocrit 43.1 % (37.0-47.0); Hemoglobin 14.5 g/dl (12.0-16.0); Imm Gran Abs Auto 0.02 X10*3/uL (0.00-0.03); Imm Gran Pct Auto 0.2 % (0.0-0.4); Lymphocytes Absolute Auto 1.9 X10*3/uL (1.2-4.9); Lymphocytes Percent Auto 19.2 % (20-40); Mean Corpuscular HGB Conc 33.6 g/dl (31.0-35.0); Mean Corpuscular Hemoglobin 29.4 pg (27.0-33.0); Mean Corpuscular Volume 87.4 fL (80.0-98.0); Mean Platelet Volume 10.6 fL (9.4-12.3); Monocytes Absolute Auto 0.6 X10*3/uL (0.1-1.2); Monocytes Percent Auto 5.8 % (2-11); Neutrophils Absolute Auto 7.2 x10*3/uL (2.0-8.3); Neutrophils Percent Auto 73.9 % (45-73); Platelet Count 209 X10*3/uL (160-400); Red Blood Count 4.93 X10*6/uL (4.20-5.50); Red Cell Distribution Width 12.8 % (11.0-16.0); White Blood Count 9.8 X10*3/uL (4.8-10.8)
[2023-10-14 12:55] LABS: Anion Gap 13 (12-20); Blood Urea Nitrogen 19 mg/dL (9-16); Calcium 9.7 mg/dL (8.4-10.2); Carbon Dioxide 28 mmol/L (22-29); Chloride 100 mmol/L (96-108); Creatinine Clr Calc Pharmacy 48.1; Estimated Glomerular Filt Rate > 60; Glucose Random 91 mg/dL (60-115); Potassium 3.6 mmol/L (3.3-5.1); Sodium 137 mmol/L (135-145)
== END 2023-10-14 13:57 | disposition home or self-care (01) ==
PROVIDERS: Emergency Provider Emergency Medicine; PCP Internal Medicine
DX: K59.00 Constipation, unspecified (principal); I10 Essential (primary) hypertension; G20.A1 Parkinson's disease without dyskinesia, without mention of fluctuations; Z79.899 Other long term (current) drug therapy
CPT/HCPCS: 36415; 74018; 80048; 85025; 99283; 99284

== ENCOUNTER 2024-02-17 11:36 | Outpatient (AMB) | payer MEDICARE, SELFPAY ==
[2024-02-17 12:20] VITALS: BP 124/70; PULSE 76; O2SAT 96; BMI 22.3
--- NOTE | 2024-02-17 12:21 | A.OFFVIS_ITS ---
Intake Vital Signs 02/17/24 12:20 02/17/24 12:28 Height 5 ft 2 in Weight 122 lb BMI 22.3 22.3 BP 124/70 Blood Pressure Location Lt brachial Position Sitting Pulse 76 Pulse Source Pulse Oximeter Pulse Oximetry (%) 96 Oxygen Delivery Method Room Air Intake Visit Reasons: SWV G0439 Allergies clindamycin [CLINDAMYCIN] Allergy (Severe, Verified 02/17/24 12:22) DIARRHEA Penicillins [PCN] Allergy (Intermediate, Verified 02/17/24 12:22) Rash penicillin V Allergy (Unknown, Verified 02/17/24 12:22) Rash jax Allergy (Verified 02/17/24 12:22) could not breath Medication List - Last Reconciled 02/17/24 by Radha Cramer MD amlodipine 5 mg PO DAILY carbidopa-levodopa 25-100 mg 1 tab PO .4 times a day docusate sodium (Colace) 100 mg PO DAILY lactulose 10 grams (15 mL) PO BEDTIME lisinopril-hydrochlorothiazide 10-12.5 mg 1 tab PO DAILY polyethylene glycol 3350 (Miralax) 17 grams PO DAILY rasagiline 0.5 mg PO DAILY HPI SWV G0439 HPI Details Initiated the conversation about Advanced Directives. Advanced Directives help? patients prepare for current and future decisions about their medical treatment? and place of care. Discussed with patient that it is a process where a patients? current condition and prognosis are reviewed, their wishes for information? regarding their illness are elicited, and likely medical dilemmas are presented? and options discussed. The form can be amended as needed, reviewed yearly and? make changes as needed Initiated the conversation about Advanced Directives. Advanced Directives help? patients prepare for current and future decisions about their medical treatment? and place of care. Discussed with patient that it is a process where a patients? current condition and prognosis are reviewed, their wishes for information? regarding their illness are elicited, and likely medical dilemmas are presented? and options discussed. The form can be amended as needed, reviewed yearly and? make changes as needed PFSH Medical History Lymphoma Vitamin D deficiency HTN (hypertension) Parkinson disease Surgical History H/O colonoscopy S/P partial hysterectomy No pertinent past surgical history Family History Father Myocardial infarction Mother Uterine cancer Sister Alzheimer disease Social History Housing: House Alcohol intake: current Alcohol intake frequency: does not drink Patient Tobacco Use Status: Never used Tobacco e-Cigarette/Vaping Use: Never Used Advance Directives Date on File: 02/18/23 Current occupational status: retired Cognitive needs: No Hearing needs: No Vision needs: Yes Questionnaire Medicare Wellness Checkup What is your age?: 80 or older What gender do you identify with?: female During the past 4 weeks, how much have you been bothered by emotional problems such as feeling anxious, depressed, irritable, sad or downhearted, and blue?: slightly During the past 4 weeks, has your physical & emotional health limited your social activities with family, friends, neighbors, or groups?: not at all During the past 4 weeks, how much bodily pain have you generally had?: mild pain During the past 4 weeks, was someone available to help you if you needed & wanted help?: yes, some During the past 4 weeks, what was the hardest physical activity you could do for at least 2 minutes?: moderate Can you get to places out of walking distance without help? (For eg., can you travel alone on buses, taxis or drive your car?): Yes Can you go shopping for groceries or clothes without someone's help?: Yes Can you prepare your own meals?: Yes Can you do your housework without help?: Yes Because of any health problems, do you need the help of another person with your personal care needs such as eating, bathing, dressing or getting around the house?: No Can you handle your own money without help?: Yes During the past 4 weeks, how would you rate your health in general?: good During the past 4 weeks how have things been going for you?: pretty well Are you having difficulties driving your car?: no Do you always fasten your seat belt when you are in a car?: yes, usually During past 4 weeks, have you been bothered by the following: never: Falling or dizzy when standing up, Sexual problems?, Trouble eating well? and Teeth or denture problems? and sometimes: Problems using the telephone? and Tiredness or fatigue? Have you fallen 2 or more times in the past year?: No Are you afraid of falling?: Yes Are you a smoker?: no During the past 4 weeks, how many drinks of wine, beer, or other alcoholic beverages did you have?: no alcohol at all Do you exercise for about 20 minutes 3 or more times a week?: yes, most of the time Have you been given information to help with the following?: yes: Hazards in your house that might hurt you? and no: Keeping track of your medications? How often do you have trouble taking medicines the way you have been told to take them?: I always take medicine as prescribed How confident are you that you can control & manage most of your health problems?: not very confident What is your race?: White Mini Mental State Exam (MMSE) Orientation What is the (year) (season) (date) (day) (month)?: year, season, date, day and month Where are we (state) (county) (town or city) (hospital) (floor)?: state, county, town or city, hospital/clinic and floor Registration Name of 3 unrelated objects clearly and slowly, then ask patient to repeat all 3 of them. (1st repeat determines score. Make sure they can repeat all three): object 1, object 2 and object 3 Attention & Calculation (CHOOSE ONE) Spell WORLD backwards (DLROW): 5 letters Recall Ask patient to repeat the 3 items from question #3.: object 1, object 2 and object 3 Language Show patient a wristwatch & ask what it is. Repeat for pencil.: watch and pencil Ask the patient to repeat the phrase 'No ifs, ands, or buts' after you.: correct Ask the patient to 'take a piece of paper with their right hand' 'fold paper in half' 'place paper on floor': take paper in right hand, fold paper in half and place paper on floor Print the sentence 'CLOSE YOUR EYES' on a piece. If patient actually closes eyes then score.: followed written direction Give patient a blank piece of paper & ask to write a sentence. Score if it contains a noun & verb.: sentence contains subject and verb Score Score: 29 Activity of Daily Living Bathing - sponge bath, tub bath or shower: receives no assistance (gets in/out by self, if usual bathing means Dressing - getting clothes from closets & drawers, including inner/outer garments & fasteners.: gets clothes & gets completely dressed without help Toileting - going to the 'toilet room' for urine/bowel elimination & cleaning self/arranging clothes: goes to toilet room, cleans self, arranges clothes without help Transfer: moves in & out of bed and chair without help (may use support object) Continence: controls urination/bowel movements completely by self Feeding: feeds self without help Total Score: 0 Information obtained from: patient Using telephone: independent Traveling: independent Shopping: independent Preparing meals: independent Housework: independent Taking medicine: independent Managing money: independent PHQ-9 Over the last 2 weeks, how often have you been bothered by any of the following problems? 1. Little interest or pleasure in doing things: not at all 2. Feeling down, depressed, or hopeless: not at all 3. Trouble falling or staying asleep, or sleeping too much: not at all 4. Feeling tired or having little energy: not at all 5. Poor appetite or overeating: not at all 6. Feeling bad about yourself - or that you are a failure or have let yourself or your family down: not at all 7. Trouble concentrating on things, such as reading the newspaper or watching television: not at all 8. Moving or speaking so slowly that other people could have noticed. Or the opposite - being so fidgety or restless that you have been moving around a lot more than usual: not at all 9. Thoughts that you would be better off or of hurting yourself in some way: not at all Total score: 0 Depression Screening Interpretation: Negative Depression Screening Done: Yes Source: Developed by Drs. Lázaro Powell, Maribell De Paz, Travis Lundy and colleagues, with an educational zoë from [employer]. Review of Systems Const All systems reviewed & are unremarkable except as noted in HPI and below Reports no additional complaints Eyes Reports no additional complaints ENT Reports no additional complaints Card Reports no additional complaints Resp Reports no additional complaints GI Reports no additional complaints Reports no additional complaints Physical Exam Vital Signs: Last Vital Signs Pulse 76 02/17/24 12:20 BP 124/70 02/17/24 12:20 Pulse Ox 96 02/17/24 12:20 Oxygen Delivery Method Room Air 02/17/24 12:20 BMI result Body Mass Index 22.3 Const General: no acute distress HEENT Head: Yes normal to inspection Ears: hearing grossly normal bilaterally Neck Neck: Yes no lymphadenopathy and Yes supple Resp Effort & Inspection: normal respiratory effort Auscultation: clear to auscultation bilaterally Cardio Rhythm: regular rhythm Heart sounds: S1 normal heart sound present and S2 normal heart sound present GI Inspection: Yes normal to inspection Palpation (GI): Soft to palpation Percussion: Yes normal to percussion Auscultation: normal bowel sounds Extrem General: Yes no clubbing, cyanosis or edema Assessment & Plan Assessment & Plan (1) Postmenopausal: Comment: hx of osteoporosis Code(s): Z78.0 - Asymptomatic menopausal state Plan: Check DEXA and vitamin-D level, weight-bearing exercises discussed with the patient (2) Vitamin D deficiency: Code(s): E55.9 - Vitamin D deficiency, unspecified Plan: Continue vitamin-D supple (3) HTN (hypertension): Code(s): I10 - Essential (primary) hypertension Plan: Continue current medications (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 Cramer Code(s): G20 - Parkinson's disease Plan: Follow-up with neurology Orders: Orders Complete Blood Count Auto Diff Today C82.99 - Follicular lymphoma, unspecified, extranodal and solid organ sites, E55.9 - Vitamin D deficiency, unspecified, G20 - Parkinson's disease, I10 - Essential (primary) hypertension, Z78.0 - Asymptomatic menopausal state Comprehensive [place]. Panel Fast Today C82.99 - Follicular lymphoma, unspecified, extranodal and solid organ sites, E55.9 - Vitamin D deficiency, unspecified, G20 - Parkinson's disease, I10 - Essential (primary) hypertension, Z78.0 - Asymptomatic menopausal state TSH reflex Free T4 Today C82.99 - Follicular lymphoma, unspecified, extranodal and solid organ sites, E55.9 - Vitamin D deficiency, unspecified, G20 - Parkinson's disease, I10 - Essential (primary) hypertension, Z78.0 - Asymptomatic menopausal state Vitamin D 25-OH Total Today C82.99 - Follicular lymphoma, unspecified, extranodal and solid organ sites, E55.9 - Vitamin D deficiency, unspecified, G20 - Parkinson's disease, I10 - Essential (primary) hypertension, Z78.0 - Asymptomatic menopausal state Lipid Panel Today C82.99 - Follicular lymphoma, unspecified, extranodal and solid organ sites, E55.9 - Vitamin D deficiency, unspecified, G20 - Parkinson's disease, I10 - Essential (primary) hypertension, Z78.0 - Asymptomatic menopausal state XR DEXA axial skeleton Today C82.99 - Follicular lymphoma, unspecified, extranodal and solid organ sites, E55.9 - Vitamin D deficiency, unspecified, G20 - Parkinson's disease, I10 - Essential (primary) hypertension, Z78.0 - Asymptomatic menopausal state Quality Reporting (2019) Depression/Bipolar (159/160/161/177) PHQ-9: Total score: 0 Coding Level of Care Code Medicare Subsequent (G0439) Diagnoses Postmenopausal Z78.0 Vitamin D deficiency E55.9 HTN (hypertension) 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 Parkinson disease G20 CPT Codes Advance Care Planning - Advance Care Planning discussion: On file, no changes ([id number]) Advance Care Planning - Time spent: 1-15 minutes, on File ([id number]) Advance Care Planning Advance Care Planning discussion: On file, no changes Forms completed: Health Care Proxy Time spent: 1-15 minutes, on File
[2024-02-17 12:28] VITALS: BMI 22.3
== END 2024-02-17 13:15 | disposition home or self-care (01) ==
PROVIDERS: PCP Internal Medicine; Visit Provider Internal Medicine
DX: Z00.00 Encounter for general adult medical examination without abnormal findings (principal); C82.99 Follicular lymphoma, unspecified, extranodal and solid organ sites; G20.C Parkinsonism, unspecified; Z78.0 Asymptomatic menopausal state; E55.9 Vitamin D deficiency, unspecified; I10 Essential (primary) hypertension
CPT/HCPCS: 1123F; G0439

== ENCOUNTER 2024-06-13 10:32 | Outpatient (REF) | payer MEDICARE, SELFPAY ==
[2024-06-13 13:10] LABS: MANUAL DIFF FLAG NO
[2024-06-13 13:25] LABS: Basophils Percent Auto 0.6 % (0-2); Eosinophils Absolute Auto 0.3 X10*3/uL (0.0-0.4); Eosinophils Percent Auto 5.6 % (0-4); Hematocrit 39.6 % (37.0-47.0); Hemoglobin 13.2 g/dl (12.0-16.0); Imm Gran Abs Auto 0.01 X10*3/uL (0.00-0.03); Imm Gran Pct Auto 0.2 % (0.0-0.4); Lymphocytes Absolute Auto 1.8 X10*3/uL (1.2-4.9); Lymphocytes Percent Auto 36.7 % (20-40); Mean Corpuscular HGB Conc 33.3 g/dl (31.0-35.0); Mean Corpuscular Hemoglobin 29.8 pg (27.0-33.0); Mean Corpuscular Volume 89.4 fL (80.0-98.0); Mean Platelet Volume 11.1 fL (9.4-12.3); Monocytes Absolute Auto 0.3 X10*3/uL (0.1-1.2); Monocytes Percent Auto 7.1 % (2-11); Neutrophils Absolute Auto 2.4 x10*3/uL (2.0-8.3); Neutrophils Percent Auto 49.8 % (45-73); Platelet Count 187 X10*3/uL (160-400); Red Blood Count 4.43 X10*6/uL (4.20-5.50); White Blood Count 4.8 X10*3/uL (4.8-10.8)
[2024-06-13 13:47] LABS: Alanine Aminotransferase < 5 U/L (0-31); Albumin Level 4.2 g/dL (3.5-5.0); Alkaline Phosphatase 55 U/L (39-117); Anion Gap 13 (12-20); Aspartate Amino Transferase 20 U/L (5-31); Bilirubin Total 0.9 mg/dL (0.0-1.0); Blood Urea Nitrogen 16 mg/dL (9-16); Calcium 9.1 mg/dL (8.4-10.2); Carbon Dioxide 25 mmol/L (22-29); Chloride 105 mmol/L (96-108); Cholesterol 225 mg/dL (<200); Estimated Glomerular Filt Rate > 60; Glucose Fasting 99 mg/dL (60-99); HDL Cholesterol 59 mg/dL (>40); LDL Cholesterol Calculated 151 mg/dL (<100); Potassium 3.4 mmol/L (3.3-5.1); Sodium 140 mmol/L (135-145); Triglycerides 79 mg/dL (<150)
[2024-06-13 14:05] LABS: TSH reflex Free T4 2.49 uIU/mL (0.32-4.0); Vitamin D 25-OH Total 69.9 ng/mL (>30)
== END 2024-06-13 10:33 | disposition home or self-care (01) ==
LOC: HO.HMGCLDS 10:32
PROVIDERS: PCP Internal Medicine; Visit Provider Internal Medicine
DX: E55.9 Vitamin D deficiency, unspecified (principal); I10 Essential (primary) hypertension; C82.99 Follicular lymphoma, unspecified, extranodal and solid organ sites; Z78.0 Asymptomatic menopausal state; G20.C Parkinsonism, unspecified
CPT/HCPCS: 36415; 80053; 80061; 82306; 84443; 85025

== ENCOUNTER 2024-07-24 20:11 | Emergency (ER) | payer MEDICARE, SELFPAY ==
--- NOTE | ~2024-07-24 | XR_ITS ---
EXAMINATION: XR ABDOMEN KUB CLINICAL INDICATION: Constipation, abdominal pain COMPARISON: Abdominal radiograph August 13, 2023 TECHNIQUE: AP view of the abdomen. FINDINGS: Dilated colon within the central abdomen with moderate degree of stool burden. Sigmoid and rectum demonstrates large stool burden. Nonobstructive bowel gas pattern. No large pneumoperitoneum. No abnormal soft tissue calcifications. Multilevel degenerative changes of the lumbar spine, worst at L4-5. XR/XR KUB IMPRESSION: Nonobstructive bowel gas pattern. Moderate to severe degree of stool burden. Electronically signed by: Jorge Luis Hodges DO 07/24/2024 11:13 PM EDT
[2024-07-24 21:15] VITALS: BP 177/97; PULSE 102; RESP 20; TEMP 36.5; O2SAT 98; BMI 22.5
[2024-07-24 21:31] LABS: MANUAL DIFF FLAG NO
[2024-07-24 21:33] LABS: Basophils Percent Auto 0.5 % (0-2); Eosinophils Absolute Auto 0.1 X10*3/uL (0.0-0.4); Eosinophils Percent Auto 2.4 % (0-4); Hematocrit 40.6 % (37.0-47.0); Hemoglobin 13.8 g/dl (12.0-16.0); Imm Gran Abs Auto 0.01 X10*3/uL (0.00-0.03); Imm Gran Pct Auto 0.2 % (0.0-0.4); Lymphocytes Absolute Auto 2.5 X10*3/uL (1.2-4.9); Mean Corpuscular Hemoglobin 29.7 pg (27.0-33.0); Mean Corpuscular Volume 87.3 fL (80.0-98.0); Monocytes Absolute Auto 0.5 X10*3/uL (0.1-1.2); Monocytes Percent Auto 7.7 % (2-11); Neutrophils Absolute Auto 2.7 x10*3/uL (2.0-8.3); Neutrophils Percent Auto 46.2 % (45-73); Platelet Count 208 X10*3/uL (160-400); Red Blood Count 4.65 X10*6/uL (4.20-5.50); White Blood Count 5.8 X10*3/uL (4.8-10.8)
[2024-07-24 21:49] LABS: Alanine Aminotransferase 15 U/L (0-31); Albumin Level 4.4 g/dL (3.5-5.0); Alkaline Phosphatase 86 U/L (39-117); Anion Gap 13 (12-20); Aspartate Amino Transferase 22 U/L (5-31); Bilirubin Total 0.4 mg/dL (0.0-1.0); Blood Urea Nitrogen 16 mg/dL (9-16); Calcium 9.6 mg/dL (8.4-10.2); Carbon Dioxide 27 mmol/L (22-29); Chloride 104 mmol/L (96-108); Creatinine Clr Calc Pharmacy 43.2; Estimated Glomerular Filt Rate > 60; Glucose Random 130 mg/dL (60-115); Potassium 3.4 mmol/L (3.3-5.1); Sodium 141 mmol/L (135-145); Total Protein 7.5 g/dL (6.5-8.0)
[2024-07-25 00:21] VITALS: BP 163/100; PULSE 92; RESP 18; TEMP 36.6; O2SAT 97
--- NOTE | 2024-07-25 00:29 | ED.ABDPAIN ---
HPI - Abdominal Pain General Chief Complaint: Abdominal Pain Stated Complaint: has not gone to bathroom in five days Time Seen by Provider: 07/25/24 00:15 Source: patient Mode of arrival: ambulatory Limitations: no limitations History of Present Illness ED Provider: angelica CAT narrative: Patient's history of constipation complaining of increased abdominal discomfort unable to move her bowels for last 5 days no nausea no vomiting history of same in the past patient has tried MiraLax Mag citrate without any bowel movement Related Data Home Medications ?Medication ?Instructions ?Recorded ?Confirmed rasagiline 0.5 mg tablet 0.5 mg PO DAILY 09/18/20 02/17/24 carbidopa 25 mg-levodopa 100 mg 1 tab PO .4 times a day 02/17/24 02/17/24 tablet Previous Rx's ?Medication ?Instructions ?Recorded lactulose 10 gram/15 mL (15 mL) 10 g (15 mL) PO BEDTIME #1,440 mL 11/28/22 oral solution docusate sodium 100 mg capsule 100 mg PO DAILY #30 caps 12/08/22 (Colace) polyethylene glycol 3350 17 17 g PO DAILY #238 grams 12/08/22 gram/dose oral powder (Miralax) amlodipine 5 mg tablet 5 mg PO DAILY #90 tabs 05/25/24 lisinopril 10 1 tab PO DAILY #90 tabs 06/03/24 mg-hydrochlorothiazide 12.5 mg tablet Allergies Allergy/AdvReac Type Severity Reaction Status Date / Time clindamycin [CLINDAMYCIN] Allergy Severe DIARRHEA Verified 07/24/24 21:15 Penicillins [PCN] Allergy Intermediate Rash Verified 07/24/24 21:15 penicillin V Allergy Unknown Rash Verified 07/24/24 21:15 jax Allergy could not Verified 07/24/24 21:15 breath Review of Systems Review of Systems Yes all other systems are reviewed and are negative [facility] Past Medical History Medical History Lymphoma Vitamin D deficiency HTN (hypertension) Parkinson disease Surgical History H/O colonoscopy S/P partial hysterectomy No pertinent past surgical history Family History Family History Father Myocardial infarction Mother Uterine cancer Sister Alzheimer disease Social History Social History Housing: House Alcohol intake: current Alcohol intake frequency: does not drink Patient Tobacco Use Status: Never used Tobacco e-Cigarette/Vaping Use: Never Used Advance Directives: Yes Advance Directives on File: Yes Advance Directives Date on File: 02/18/23 Current occupational status: retired Cognitive needs: No Hearing needs: No Vision needs: Yes Physical Exam ED Vital Signs: Vital Signs - 24 hr 07/24/24 21:15 07/25/24 00:21 Temperature 97.7 F 97.8 F Pulse Rate 102 H 92 Respiratory Rate 20 18 Blood Pressure 177/97 H 163/100 H Pulse Oximetry 98 97 Oxygen Delivery Method Room Air Room Air BMI result Body Mass Index 22.5 Appearance: Alert. Oriented X3. No acute distress. Eyes: No pallor or icterus ENT: Pharynx normal. Oral Mucosa moist Neck: Normal inspection. Neck supple. CVS: Normal heart rate and rhythm. Pulses normal. Respiratory: No respiratory distress. Equal air entry bilateral, no wheezing/rales/rhonchi Abdomen: Soft and nontender. Bowel sounds are present, no mass palpable, no CVA tenderness rectal: Semi solid stool in the rectum Skin: Skin warm and dry. Normal skin color. Normal skin turgor. Extremities: No lower extremity edema. No calf tenderness Neuro: Oriented X 3. Medical Decision Making Medical Decision Making [facility] Narrative: Patient has significant constipation no signs of bowel obstruction, had small bowel movement after manual disimpaction Fleet enema was given and patient had a big bowel feeling much better will discharge patient home Differential Diagnosis Differential Diagnoses: The differential diagnosis associated with the presentation includes Lab Data [facility] Lab Attestation statement: I reviewed the patient's lab results. 07/24/24 21:27 07/24/24 21:27 Labs: Lab Results 07/24/24 Range/Units 21:27 WBC 5.8 (4.8-10.8) X10*3/uL RBC 4.65 (4.20-5.50) X10*6/uL Hgb 13.8 (12.0-16.0) g/dl Hct 40.6 (37.0-47.0) % MCV 87.3 (80.0-98.0) fL MCH 29.7 (27.0-33.0) pg MCHC 34.0 (31.0-35.0) g/dl RDW 13.0 (11.0-16.0) % Plt Count 208 (160-400) X10*3/uL MPV 10.0 (9.4-12.3) fL Immature Gran % (Auto) 0.2 (0.0-0.4) % Neut % (Auto) 46.2 (45-73) % Lymph % (Auto) 43.0 H (20-40) % [place] % (Auto) 7.7 (2-11) % Eos % (Auto) 2.4 (0-4) % Baso % (Auto) 0.5 (0-2) % Lymph # (Auto) 2.5 (1.2-4.9) X10*3/uL [place] # (Auto) 0.5 (0.1-1.2) X10*3/uL Eos # (Auto) 0.1 (0.0-0.4) X10*3/uL Baso # (Auto) 0.0 (0.0-0.2) X10*3/uL Abs Immat Gran (auto) 0.01 (0.00-0.03) X10*3/uL Absolute Neuts (auto) 2.7 (2.0-8.3) x10*3/uL Absolute Nucleated RBC 0.000 (0.0-0.012) X10*3/uL Nucleated RBC % (auto) 0.0 (0.0-0.2) /100WBC Sodium 141 (135-145) mmol/L Potassium 3.4 (3.3-5.1) mmol/L Chloride 104 (96-108) mmol/L Carbon Dioxide 27 (22-29) mmol/L Anion Gap 13 (12-20) BUN 16 (9-16) mg/dL Creatinine 0.78 (0.5-1.4) mg/dL Estim Creat Clear Calc 43.2 Estimated GFR > 60 Random Glucose 130 H (60-115) mg/dL Calcium 9.6 (8.4-10.2) mg/dL Total Bilirubin 0.4 (0.0-1.0) mg/dL AST 22 (5-31) U/L ALT 15 (0-31) U/L Alkaline Phosphatase 86 (39-117) U/L Total Protein 7.5 (6.5-8.0) g/dL Albumin 4.4 (3.5-5.0) g/dL Medications Administered Discontinued Medications Generic Name Dose Route Start Last Admin Trade Name Freq PRN Reason Stop Dose Admin Sodium Biphosphate/Sodium Phosphate 133 ml 07/25/24 00:57 07/25/24 01:25 Sodium Phosphate,[place]-Dibasic 133 Ml Enema AK 07/25/24 00:58 133 ml ONCE ONE Administration Discharge Plan Discharge Clinical Impression: Constipation Patient Disposition: Home, Self-Care Instructions: Constipation (ED) Additional Instructions: Continue take your stool softener MiraLax daily Use Fleet enema as needed Follow with your PCP Prescriptions: No Action amlodipine 5 mg tablet 5 mg PO DAILY Qty: 90 3RF lisinopril-hydrochlorothiazide 10-12.5 mg tablet 1 tab PO DAILY Qty: 90 3RF polyethylene glycol 3350 [Miralax] 17 gram/dose powder 17 g PO DAILY Qty: 238 0RF docusate sodium [Colace] 100 mg capsule 100 mg PO DAILY Qty: 30 0RF rasagiline 0.5 mg tablet 0.5 mg PO DAILY carbidopa-levodopa 25-100 mg tablet 1 tab PO .4 times a day lactulose 10 gram/15 mL (15 mL) solution 10 g PO BEDTIME Qty: 1440 3RF Print Language: Korean
--- NOTE | 2024-07-25 00:37 | MHC.EDTECH ---
Pt changed over into a hospital gown. Red fall risk precaution socks and band put on PT for saftey. Pt BP is currently elevated CODY Arellano made aware
[2024-07-25] MEDS: Sodium Phosphate,Mono-Dibasic 133 ML ENEMA PR (01:25)
== END 2024-07-25 04:10 | disposition home or self-care (01) ==
PROVIDERS: Emergency Provider Internal Medicine; PCP Internal Medicine
DX: R10.9 Unspecified abdominal pain (principal); I10 Essential (primary) hypertension; G20.A1 Parkinson's disease without dyskinesia, without mention of fluctuations
CPT/HCPCS: 36415; 74018; 80053; 85025; 99283; 99284

== ENCOUNTER 2024-08-15 12:08 | Outpatient (AMB) | payer MEDICARE, SELFPAY ==
[2024-08-15 12:24] VITALS: BP 120/70; PULSE 74; O2SAT 96; BMI 20.8
--- NOTE | 2024-08-15 12:24 | MHC.PC.OV ---
Vital Signs 08/15/24 12:24 Height 5 ft 2 in Weight 114 lb BMI 20.8 BP 120/70 Blood Pressure Location Rt brachial Position Sitting Pulse 74 Pulse Source Pulse Oximeter Pulse Oximetry (%) 96 Intake Visit Reasons: 6 month follow up - see comments Intake Note: patient is here for 6 month follow up Instructional Support Specialist Required: No Accompanied by: Self / Same As Patient Allergies clindamycin [CLINDAMYCIN] Allergy (Severe, Verified 08/15/24 12:24) DIARRHEA Penicillins [PCN] Allergy (Intermediate, Verified 08/15/24 12:24) Rash penicillin V Allergy (Unknown, Verified 08/15/24 12:24) Rash jax Allergy (Verified 08/15/24 12:24) could not breath Medication List - Last Reconciled 08/15/24 by Radha Cramer MD amlodipine 5 mg PO DAILY carbidopa-levodopa 25-100 mg 1 tab PO .4 times a day docusate sodium (Colace) 100 mg PO DAILY lactulose 10 grams (15 mL) PO BEDTIME lisinopril-hydrochlorothiazide 10-12.5 mg 1 tab PO DAILY polyethylene glycol 3350 (Miralax) 17 grams PO DAILY rasagiline 0.5 mg PO DAILY Tobacco use date assessed: 08/15/24 Fall risk assessment: No Falls in past year Last assessed Fall Risk: 08/15/24 Dental Screening Dental Screen Date: 08/15/24 Did you have a dental visit in the last 12 months?: Yes Did you have a dental problem in the last 6 months where you did not have access to dental care?: No Was dental information given to patient?: Patient has dentist HPI 6 month follow up - see comments HPI Details Patient presents for the follow-up on hypertension and Parkinson's disease. FOR[facility]LY [facility], [facility] Medical History Lymphoma Vitamin D deficiency HTN (hypertension) Parkinson disease Surgical History H/O colonoscopy S/P partial hysterectomy No pertinent past surgical history Family History Father Myocardial infarction Mother Uterine cancer Sister Alzheimer disease Social History Housing: House Alcohol intake: current Alcohol intake frequency: does not drink Patient Tobacco Use Status: Never used Tobacco e-Cigarette/Vaping Use: Never Used Advance Directives Date on File: 02/18/23 Current occupational status: retired Cognitive needs: No Hearing needs: No Vision needs: Yes Questionnaire PHQ-9 Over the last 2 weeks, how often have you been bothered by any of the following problems? 1. Little interest or pleasure in doing things: not at all 2. Feeling down, depressed, or hopeless: not at all 3. Trouble falling or staying asleep, or sleeping too much: not at all 4. Feeling tired or having little energy: not at all 5. Poor appetite or overeating: not at all 6. Feeling bad about yourself - or that you are a failure or have let yourself or your family down: not at all 7. Trouble concentrating on things, such as reading the newspaper or watching television: not at all 8. Moving or speaking so slowly that other people could have noticed. Or the opposite - being so fidgety or restless that you have been moving around a lot more than usual: not at all 9. Thoughts that you would be better off or of hurting yourself in some way: not at all Total score: 0 Depression Screening Interpretation: Negative Depression Screening Done: Yes 04443 - PHQ-9 Billing: Yes Source: Developed by Drs. Lázaro Powell, Maribell De Paz, Travis Lundy and colleagues, with an educational zoë from [employer]. Thrive Questionnaire Date Thrive assessed: 08/15/24 I am a: Patient What is your living situation today?: I choose not to answer this question Within the past 12 months, did the food you bought not last and you didn't have the money to get more?: I choose not to answer this question Within the past 12 months, did you worry whether your food would run out before you got money to buy more?: I choose not to answer this question Do you have trouble paying for medicines?: I choose not to answer this question Do you have trouble getting transportation to medical appointments?: I choose not to answer this question Do you have trouble paying your heating and electricity bill?: I choose not to answer this question Do you have trouble taking care of your child, family member or friend?: I choose not to answer this question Do you have trouble with day-to-day activities such as bathing, preparing meals, shopping, managing finances, etc.?: I choose not to answer this question Are you interested in more education?: I choose not to answer this question Please select the resources that you would like help with: None Currently or been in a relationship where the following occur: I choose not to answer THRIVE Score: 0 AUDIT C Alcohol Use Questionnaire (AUDIT-C) 1. How often do you have a drink containing alcohol?: Never 3. How often do you have six or more drinks on one occasion?: Never Total Score: 0 Score Reviewed/Action Taken: Yes ORION-7 AMB Questionnaire ORION-7 Date ORION - 7 assessed: 08/15/24 Feeling nervous, anxious, or on edge: 0 = Not at all Not being able to stop or control worryin = Not at all Worrying too much about different things: 0 = Not at all Trouble relaxin = Not at all Being so restless that it is hard to sit still: 0 = Not at all Becoming easily annoyed or irritable: 0 = Not at all Feeling afraid as if something awful might happen: 0 = Not at all Total ORION-7 score (0-4 normal; 5-9 mild; 10-14 moderate; 15-21 severe): 0 Source: Developed by Drs. Lázaro Powell, Maribell De Paz, Travis Lundy and colleagues, with an educational zoë from [employer]. ORION-7 Assessment Billing ORION-7 Assessment Tool: ORION-7 Assessment 12865 Review of Systems Const All systems reviewed & are unremarkable except as noted in HPI and below ENT Reports no additional complaints Card Reports no additional complaints Resp Reports no additional complaints GI Reports no additional complaints Reports no additional complaints Physical exam (Primary Care) Vital Signs: Last Vital Signs Pulse 74 08/15/24 12:24 BP 120/70 08/15/24 12:24 Pulse Ox 96 08/15/24 12:24 BMI result Body Mass Index 20.8 Tobacco/Smoking Status: Tobacco use Status Tobacco use date assessed 08/15/24 08/15/24 12:25 Patient Tobacco Use Status Never used Tobacco 08/15/24 12:25 e-Cigarette/Vaping Use Never Used 08/15/24 12:25 PHQ-9: PHQ-9 Score PHQ-9: Total score 0 08/15/24 12:25 Depression Screening Interpretation: Negative Thrive Assessment: Date of Thrive Assessment Date Thrive assessed 08/15/24 08/15/24 12:25 Currently or been in a relationship where the following occur: I choose not to answer Const General: no acute distress HENMT Ears: hearing grossly normal bilaterally Neck Neck: Yes supple Resp Effort & Inspection: normal respiratory effort Auscultation: clear to auscultation bilaterally Cardio Rhythm: regular rhythm Heart sounds: S1 normal heart sound present and S2 normal heart sound present GI Inspection: Yes normal to inspection Palpation (GI): Soft to palpation Percussion: Yes normal to percussion Assessment and Plan Assessment & Plan (1) HTN (hypertension): Code(s): I10 - Essential (primary) hypertension Plan: Continue current medication (2) Hyperlipidemia: Code(s): E78.5 - Hyperlipidemia, unspecified Plan: Low-cholesterol diet discussed with the patient (3) Parkinson disease: Comment: Dr. Cramer Code(s): G20 - Parkinson's disease Plan: Continue current medications follow-up with Neurology (4) Hyperglycemia: Code(s): R73.9 - Hyperglycemia, unspecified Plan: ADA diet increase physical activity discussed with the patient check A1c in 6 months Orders: Orders Comprehensive [place]. Panel Fast 6 Months E78.5 - Hyperlipidemia, unspecified, I10 - Essential (primary) hypertension Lipid Panel 6 Months E78.5 - Hyperlipidemia, unspecified, I10 - Essential (primary) hypertension Complete Blood Count Auto Diff 6 Months E78.5 - Hyperlipidemia, unspecified, I10 - Essential (primary) hypertension Hemoglobin A1c 6 Months E78.5 - Hyperlipidemia, unspecified, I10 - Essential (primary) hypertension Coding Level of Care Code Est Pt Level 4 (95343) Diagnoses HTN (hypertension) I10 Hyperlipidemia E78.5 Parkinson disease G20 Hyperglycemia R73.9 Additional Codes ORION-7 Assessment Billing - ORION-7 Assessment Tool: ORION-7 Assessment 13135 ([id number])
== END 2024-08-15 13:13 | disposition home or self-care (01) ==
PROVIDERS: PCP Internal Medicine; Visit Provider Internal Medicine
DX: I10 Essential (primary) hypertension (principal); E78.5 Hyperlipidemia, unspecified; G20.C Parkinsonism, unspecified; R73.9 Hyperglycemia, unspecified

== ENCOUNTER → 2024-08-15 12:08 | Outpatient (BNVA) | payer MEDICARE, SELFPAY | PROVIDERS: PCP Internal Medicine; Visit Provider Internal Medicine | DX: I10 Essential (primary) hypertension (principal); E78.5 Hyperlipidemia, unspecified; G20.C Parkinsonism, unspecified; R73.9 Hyperglycemia, unspecified | CPT/HCPCS: 96127; 99212 ==

== ENCOUNTER 2024-11-20 18:22 | Inpatient (IN) | payer MEDICARE, SELFPAY ==
--- NOTE | ~2024-11-20 | CT_ITS ---
CLINICAL HISTORY: diffuse abd pain CT abdomen and pelvis with contrast Comparison: CT of the abdomen and pelvis from 12/08/2022 Findings: Mild bibasilar atelectasis versus pneumonitis, right worse than left. With small imaged pleural effusions. Mild periportal edema. Gallbladder is markedly distended. Volume loss of the pancreas again noted. Calcifications involving the pancreas favored to be vascular with calcified and noncalcified plaque involving the imaged aorta and its branches. Spleen is nonenlarged. Mild adrenal hyperplasia redemonstrated. No hydronephrosis. Mesenteric and periaortic lymph nodes are nonspecific and may be reactive. No small bowel obstruction. Fluid and multiple small bowel loops can be seen enteritis. The appendix is not definitively seen. Diffuse wall thickening of the large intestine is concerning for diffuse colitis. Small rectal tube is in place. Pelvis floor laxity suggested by CT. Mild distention of the urinary bladder. Uterus is diminutive or surgically absent. No adnexal soft tissue mass. Mild free fluid may be reactive. No free intraperitoneal air. Low bone mineralization suggested. Degenerative changes include the hips, pubic symphysis, sacroiliac joints, and spine. Mild multifocal vertebral height losses appear old chronic. Moderate height loss of the L2 appears old/chronic. These are accentuated by multifocal Schmorl's nodes. Facet arthropathy is multifocal most pronounced in the lower lumbar spine. IMPRESSION: 1. Diffuse entero-colitis. No small bowel obstruction. 2. the gallbladder is distended. 3. Periportal edema. 4. Bibasilar atelectasis/pneumonitis. This document has been electronically signed by: Leopoldo Macias MD on 11/21/2024 02:36:46
--- NOTE | ~2024-11-20 | XR_ITS ---
CLINICAL HISTORY: fever 1 view chest x-ray Comparison: None Findings: Mild left hilar pulmonary opacities may reflect pneumonitis and/or bronchitis. No consolidation, pneumothorax, or pleural effusion. Mild elevation right hemidiaphragm with likely mild emphysematous changes. Cardiac silhouette and mediastinum accentuated by AP technique. Degenerative changes include imaged shoulders. Low bone mineralization suggested. IMPRESSION: Mild left hilar opacities. Differential considerations include pneumonitis or bronchitis. This document has been electronically signed by: Leopoldo Macias MD on 11/20/2024 22:06:43
[2024-11-20 18:52] VITALS: BP 90/52; PULSE 95; RESP 16; TEMP 36.4; O2SAT 96; BMI 21.7
--- NOTE | 2024-11-20 18:54 | ED_ITS ---
HPI - Nausea/Vomiting/Diarrhea General Chief complaint: Weakness Stated complaint: vomiting/diarrhea Time Seen by Provider: 11/20/24 21:27 Source: patient Mode of arrival: ambulatory Limitations: no limitations History of Present Illness ED Provider: Dr. Neisha Gipson HPI Narrative: Patient comes to the emergency room complaining of nausea vomiting diarrhea, chills and feeling weak. Patient states that yesterday she did a lot of shopping, when she got home she noted that she was exhausted but attributed the weakness was strenuous day. Today, patient developed fever and the above- mentioned symptoms. At this time, patient states that she does not have abdominal pain but overall she does not feel well. Feeling a bit nauseous. Related Data Home Medications ?Medication ?Instructions ?Recorded ?Confirmed rasagiline 0.5 mg tablet 0.5 mg PO DAILY 09/18/20 11/21/24 carbidopa 25 mg-levodopa 100 mg 1 tab PO .4 times a day 02/17/24 11/21/24 tablet Previous Rx's ?Medication ?Instructions ?Recorded lactulose 10 gram/15 mL (15 mL) 10 g (15 mL) PO BEDTIME #1,440 mL 11/28/22 oral solution docusate sodium 100 mg capsule 100 mg PO DAILY #30 caps 12/08/22 (Colace) polyethylene glycol 3350 17 17 g PO DAILY #238 grams 12/08/22 gram/dose oral powder (Miralax) amlodipine 5 mg tablet 5 mg PO DAILY #90 tabs 05/25/24 lisinopril 10 1 tab PO DAILY #90 tabs 06/03/24 mg-hydrochlorothiazide 12.5 mg tablet Allergies Allergy/AdvReac Type Severity Reaction Status Date / Time clindamycin [CLINDAMYCIN] Allergy Severe DIARRHEA Verified 11/20/24 18:54 Penicillins [PCN] Allergy Intermediate Rash Verified 11/20/24 18:54 penicillin V Allergy Unknown Rash Verified 11/20/24 18:54 jax Allergy could not Verified 11/20/24 18:54 breath Review of Systems 2 Review of Systems: Constitutional : No Weight loss, No Fever, No Chills, No Night Sweats, complaining of fatigue and generalized malaise ENT/Mouth : No Hearing loss, No Ear Pain, No Nasal Congestion, No Sinus Pain, No Hoarseness, No sore throat, No Rhinorrhea, No Swallowing Difficulty Eyes: No Eye Pain, No Swelling, No Redness, No Foreign Body, No Discharge, No Vision Changes Cardiovascular : No Chest Pain, No SOB, No Dyspnea on Exertion, No Orthopnea, No Edema, No Palpitations Respiratory : No Cough, No Sputum, No Wheezing, No Smoke Exposure, No Dyspnea Gastrointestinal : Complaining of nausea vomiting, diarreha No Constipation, No abdominal Pain, No Hematochezia, No Melena Genitourinary : no irregular bleeding, No Dysuria, No Urinary Frequency, No Hematuria, No Urinary Incontinence, No Urgency, No Flank Pain, No Urinary Flow Changes, No Hesitancy Musculoskeletal : No joint pain, No Myalgias, No Joint Swelling Skin : No Skin Lesions, No rash Neuro : No Weakness, No Numbness, No Paresthesias, No Loss of Consciousness, No Dizziness, No Headache Psych : No Anxiety/Panic, No Depression, No SI/HI/AH/VH, No Social Issues, Heme/Lymph: No Bruising, No Bleeding,No Lymphadenopathy Endocrine : No Polyuria, No Polydipsia, No Temperature Intolerance [facility] Past Medical History Medical History Lymphoma Vitamin D deficiency HTN (hypertension) Parkinson disease Surgical History H/O colonoscopy S/P partial hysterectomy No pertinent past surgical history Family History Family History Father Myocardial infarction Mother Uterine cancer Sister Alzheimer disease Social History Social History Housing: House Alcohol intake: current Alcohol intake frequency: does not drink Patient Tobacco Use Status: Never used Tobacco Smoked in Last 30 Days: No e-Cigarette/Vaping Use: Never Used Use of substances other than those prescribed or required for medical reasons: No Advance Directives: Yes Advance Directives on File: Yes Advance Directives Date on File: 02/18/23 Do you have a plan to hurt others: No Plan Current occupational status: retired Cognitive needs: No Hearing needs: No Vision needs: Yes Physical Exam 2 Vital Signs: Vital Signs: Last Vital Signs Temp 97.7 F 11/21/24 02:23 Pulse 71 11/21/24 02:23 Resp 18 11/21/24 02:23 BP 103/58 L 11/21/24 02:23 Pulse Ox 95 11/21/24 02:24 O2 Del Method Nasal Cannula 11/21/24 02:24 O2 Flow Rate 2 11/21/24 02:24 BMI result Body Mass Index 21.7 Const: Other: Appearance: Alert. Oriented X3. No acute distress. Eyes: Pupils equal, round and reactive to light. ENT: Pharynx normal. Neck: Normal inspection. Neck supple. No lymph nodes noted. No crepitus CVS: Normal heart rate and rhythm. Pulses normal. Normal S1 and S2 Respiratory: No respiratory distress. Breath sounds normal. No Wheezing. No rales Abdomen: Soft and nontender. No rigidity. Slightly distended Skin: Skin warm and dry. Normal skin color. Normal skin turgor. Extremities: No lower extremity edema. No Lacerations. No Rash Neuro: Oriented X 3. No motor deficit. No sensory deficit. Moving all extremities. No slurred speech. CN 2 through 12 grossly intact Psych: calm, cooperative, normal affect Course Course Course Narrative: This is a Rapid Medical Examination (RME) performed by Christian Odell PA-C in triage. Full HPI, ROS, assessment and treatment plan per primary provider in the Main ED. 84 yo female hx of HTN, HDL, parkinson, lymphoma here for eval of chills, nausea, vomiting, diarrhea, RLQ abd pain, and generalized weakness since this morning. no known sick contacts. no chest pain. Plan: labs, UA, viral swabs Medications Administered Discontinued Medications Generic Name Dose Route Start Last Admin Trade Name Christophe PRN Reason Stop Dose Admin Acetaminophen 975 mg 11/20/24 21:52 11/20/24 22:10 Acetaminophen 325 Mg Tablet PO 11/20/24 21:53 975 mg ONCE ONE Administration Ceftriaxone Sodium 1 gm 11/20/24 21:39 11/20/24 21:47 Ceftriaxone Sodium 1 Gm Vial IVPUSH 11/20/24 21:40 1 gm ONCE ONE Administration Lactated Ringer's 2,000 mls @ 999 mls/hr 11/20/24 21:45 11/20/24 23:50 Lr IV 11/20/24 23:45 Infused .Q2H1M RAN Infusion Sodium Chloride 1,000 mls @ 999 mls/hr 11/21/24 00:08 11/21/24 01:30 Ns IVCONT 11/21/24 01:08 Infused .Q1H1M ONE Infusion Lactated Ringer's 1,000 mls @ 500 mls/hr 11/21/24 01:01 11/21/24 01:47 Lr IVCONT 11/21/24 03:00 500 mls/hr .Q2H ONE Administration Iohexol 85 ml 11/21/24 02:00 11/21/24 02:00 Iohexol 350 Mg/Ml 100 Ml Infus..Btl IV 11/21/24 02:01 85 ml ONCE ONE Administration Loperamide HCl 4 mg 11/20/24 21:57 11/20/24 22:10 Loperamide Hcl 2 Mg Capsule PO 11/20/24 21:58 4 mg ONCE ONE Administration Ondansetron HCl 4 mg 11/20/24 21:57 11/20/24 22:10 Ondansetron Hcl 4 Mg/2 Ml Vial IVPUSH 11/20/24 21:58 4 mg ONCE ONE Administration Medical Decision Making Medical Decision Making MDM Narrative: The sepsis protocol was started at 20:21. It is unclear who started it, sales secretary unsure who did, may be patient's nurse?, none of the providers were informed that the protocol had already been started, and no fluids or antibiotics were ordered until I saw the patient, almost hour and a half later. My interpretation of labs: Patient's hematology shows a white blood cell count of 12.6, 20% bands, lactic acid 3.7, no other significant electrolyte abnormalities. No significant abnormalities in LFTs, normal magnesium levels, normal lipase. Patient's urinalysis show a small amount of leukocyte esterase and positive for nitrites. Patient has no UTI symptoms. Patient denies flank pain. No bacteria seen. No squamous epithelial cells. Empirically, patient was given IV fluids and ceftriaxone. Chest x-ray shows possible viral process, no consolidations -CT scan of the abdomen pending. FOCUS exam performed Despite almost 4 L of IV fluids, patient's blood pressure drops to the mid 80s. CT scan shows diffuse enterocolitis -given the patient's consistent drops in blood pressure, Levophed was considered. Initially it was ordered. However, it was never started. For the last 2 hours, patient has had consistent blood pressures above 100 with a map of greater than 70 Patient no longer having nausea vomiting or diarrhea. Patient is stable to go up to the floor. I discussed the patient with Dr. Chávez, patient being admitted Differential Diagnosis Differential Diagnoses: The differential diagnosis associated with the presentation includes (Pneumonia, viral illness, gastroenteritis, enteritis) Admission/Observation Consideration of admission/observation: Escalation of care including admission/observation considered (Gastroenteritis, enterocolitis, UTI) Lab Data MDM Lab Attestation statement: I reviewed the patient's lab results. 11/20/24 19:13 11/20/24 19:13 Labs: Lab Results 11/20/24 11/20/24 11/20/24 Range/Units 19:13 20:13 21:07 WBC 12.6 H (4.8-10.8) X10*3/uL RBC 4.78 (4.20-5.50) X10*6/uL Hgb 14.1 (12.0-16.0) g/dl Hct 41.5 (37.0-47.0) % MCV 86.8 (80.0-98.0) fL MCH 29.5 (27.0-33.0) pg MCHC 34.0 (31.0-35.0) g/dl RDW 12.9 (11.0-16.0) % Plt Count 199 (160-400) X10*3/uL MPV 10.5 (9.4-12.3) fL Immature Gran % (Auto) Cancelled Neut % (Auto) Cancelled Lymph % (Auto) Cancelled [place] % (Auto) Cancelled Eos % (Auto) Cancelled Baso % (Auto) Cancelled Lymph # (Auto) Cancelled [place] # (Auto) Cancelled Eos # (Auto) Cancelled Baso # (Auto) Cancelled Abs Immat Gran (auto) Cancelled Absolute Neuts (auto) Cancelled Absolute Nucleated RBC 0.000 (0.0-0.012) X10*3/uL Nucleated RBC % (auto) 0.0 (0.0-0.2) /100WBC Neutrophils % (Manual) 75 H (45-73) % Band Neutrophils % 20 H (3-5) % Lymphocytes % (Manual) 1 L (20-40) % Monocytes % (Manual) 4 (2-11) % Abs Neuts (Manual) 12.0 H (2.0-8.3) X10*3/uL Lymphocytes # (Manual) 0.1 L (1.2-4.9) X10*3/uL Monocytes # (Manual) 0.5 (0.1-1.2) X10*3/uL Toxic Vacuolation PRESENT Dohle Bodies PRESENT Platelet Estimate NORMAL (NORMAL) Plt Morphology Comment NORMAL RBC Morphology NORMAL Smear Tech's Comments MANUAL DIFF Sodium 140 (135-145) mmol/L Potassium 3.8 (3.3-5.1) mmol/L Chloride 106 (96-108) mmol/L Carbon Dioxide 22 (22-29) mmol/L Anion Gap 16 (12-20) BUN 26 H (9-16) mg/dL Creatinine 0.88 (0.5-1.4) mg/dL Estim Creat Clear Calc 35.9 Estimated GFR > 60 Random Glucose 163 H (60-115) mg/dL Lactic Acid 3.7 H* (0.5-2.0) mmol/L Lactic Acid F/U @ 2Hr (0.5-2.0) mmol/L Lactic Acid F/U @ 4Hr (0.5-2.0) mmol/L Calcium 9.3 (8.4-10.2) mg/dL Magnesium 2.1 (1.6-2.6) mg/dL Total Bilirubin 1.1 H (0.0-1.0) mg/dL AST 32 H (5-31) U/L ALT 15 (0-31) U/L Alkaline Phosphatase 58 (39-117) U/L Total Protein 6.7 (6.5-8.0) g/dL Albumin 4.0 (3.5-5.0) g/dL Lipase 20 (8-78) U/L Urine Color Dark Yellow Urine Appearance Clear Urine pH 5.5 (5.0-9.0) Ur Specific [place] 1.015 (1.005-1.025) Urine Protein Negative (Neg-Trace) mg/dL Urine Glucose (UA) Negative (Negative) mg/dL Urine Ketones Trace (Negative) mg/dL Urine Blood Negative (Negative) Urine Nitrite Positive H (Negative) Ur Leukocyte Esterase Small (1+) H (Negative) Urine RBC 0-2 (0-2) /HPF Urine WBC 0-5 (0-5) /HPF Ur Squamous Epith Cells 0-2 (0-2) /HPF Urine Bacteria None Seen (None Seen) Hyaline Casts 3-5 (0-2) /LPF Granular Casts Present Influenza Type A (PCR) NEGATIVE (Negative) Influenza Type B (PCR) NEGATIVE (Negative) RSV RNA Qual (PCR) NEGATIVE (Negative) SARS-CoV-2 RNA (RT-PCR) NEGATIVE (Negative) 11/20/24 11/21/24 Range/Units 22:59 01:40 WBC (4.8-10.8) X10*3/uL RBC (4.20-5.50) X10*6/uL Hgb (12.0-16.0) g/dl Hct (37.0-47.0) % MCV (80.0-98.0) fL MCH (27.0-33.0) pg MCHC (31.0-35.0) g/dl RDW (11.0-16.0) % Plt Count (160-400) X10*3/uL MPV (9.4-12.3) fL Immature Gran % (Auto) Neut % (Auto) Lymph % (Auto) [place] % (Auto) Eos % (Auto) Baso % (Auto) Lymph # (Auto) [place] # (Auto) Eos # (Auto) Baso # (Auto) Abs Immat Gran (auto) Absolute Neuts (auto) Absolute Nucleated RBC (0.0-0.012) X10*3/uL Nucleated RBC % (auto) (0.0-0.2) /100WBC Neutrophils % (Manual) (45-73) % Band Neutrophils % (3-5) % Lymphocytes % (Manual) (20-40) % Monocytes % (Manual) (2-11) % Abs Neuts (Manual) (2.0-8.3) X10*3/uL Lymphocytes # (Manual) (1.2-4.9) X10*3/uL Monocytes # (Manual) (0.1-1.2) X10*3/uL Toxic Vacuolation Dohle Bodies Platelet Estimate (NORMAL) Plt Morphology Comment RBC Morphology Smear Tech's Comments Sodium (135-145) mmol/L Potassium (3.3-5.1) mmol/L Chloride (96-108) mmol/L Carbon Dioxide (22-29) mmol/L Anion Gap (12-20) BUN (9-16) mg/dL Creatinine (0.5-1.4) mg/dL Estim Creat Clear Calc Estimated GFR Random Glucose (60-115) mg/dL Lactic Acid (0.5-2.0) mmol/L Lactic Acid F/U @ 2Hr 4.0 H* (0.5-2.0) mmol/L Lactic Acid F/U @ 4Hr 1.9 (0.5-2.0) mmol/L Calcium (8.4-10.2) mg/dL Magnesium (1.6-2.6) mg/dL Total Bilirubin (0.0-1.0) mg/dL AST (5-31) U/L ALT (0-31) U/L Alkaline Phosphatase (39-117) U/L Total Protein (6.5-8.0) g/dL Albumin (3.5-5.0) g/dL Lipase (8-78) U/L Urine Color Urine Appearance Urine pH (5.0-9.0) Ur Specific [place] (1.005-1.025) Urine Protein (Neg-Trace) mg/dL Urine Glucose (UA) (Negative) mg/dL Urine Ketones (Negative) mg/dL Urine Blood (Negative) Urine Nitrite (Negative) Ur Leukocyte Esterase (Negative) Urine RBC (0-2) /HPF Urine WBC (0-5) /HPF Ur Squamous Epith Cells (0-2) /HPF Urine Bacteria (None Seen) Hyaline Casts (0-2) /LPF Granular Casts Influenza Type A (PCR) (Negative) Influenza Type B (PCR) (Negative) RSV RNA Qual (PCR) (Negative) SARS-CoV-2 RNA (RT-PCR) (Negative) Independent Interpretation I performed an independent interpretation of an: CT Scan Radiology Impression Discussion of test interpretation with radiology: I have reviewed the radiologist's reading. Radiologist Impression: Mild left hilar pulmonary opacities may reflect pneumonitis and/or bronchitis. No consolidation, pneumothorax, or pleural effusion. Mild elevation right hemidiaphragm with likely mild emphysematous changes. Cardiac silhouette and mediastinum accentuated by AP technique. Degenerative changes include imaged shoulders. Low bone mineralization suggested. IMPRESSION: Mild left hilar opacities. Differential considerations include pneumonitis or bronchitis. Critical Care Time Critical Care Time Critical Care Time: Yes Total Critical Care Time: 90 Attestation: I have personally provided critical care time. Time includes review of lab data, radiology results, discussion with consultants, and monitoring for potential decompensation. Intervention performed as documented. Discharge Plan Discharge Clinical Impression: Enterocolitis, Hypotension, Nausea vomiting and diarrhea, Acute dehydration Patient Disposition: Admitted As Inpatient Prescriptions: No Action amlodipine 5 mg tablet 5 mg PO DAILY Qty: 90 3RF lisinopril-hydrochlorothiazide 10-12.5 mg tablet 1 tab PO DAILY Qty: 90 3RF polyethylene glycol 3350 [Miralax] 17 gram/dose powder 17 g PO DAILY Qty: 238 0RF docusate sodium [Colace] 100 mg capsule 100 mg PO DAILY Qty: 30 0RF rasagiline 0.5 mg tablet 0.5 mg PO DAILY carbidopa-levodopa 25-100 mg tablet 1 tab PO .4 times a day lactulose 10 gram/15 mL (15 mL) solution 10 g PO BEDTIME Qty: 1440 3RF Print Language: Montserratian
[2024-11-20 19:20] LABS: Hematocrit 41.5 % (37.0-47.0); Hemoglobin 14.1 g/dl (12.0-16.0); Mean Corpuscular Hemoglobin 29.5 pg (27.0-33.0); Mean Corpuscular Volume 86.8 fL (80.0-98.0); Mean Platelet Volume 10.5 fL (9.4-12.3); Platelet Count 199 X10*3/uL (160-400); Red Blood Count 4.78 X10*6/uL (4.20-5.50); Red Cell Distribution Width 12.9 % (11.0-16.0); White Blood Count 12.6 X10*3/uL (4.8-10.8)
[2024-11-20 19:35] LABS: Alanine Aminotransferase 15 U/L (0-31); Alkaline Phosphatase 58 U/L (39-117); Anion Gap 16 (12-20); Aspartate Amino Transferase 32 U/L (5-31); Bilirubin Total 1.1 mg/dL (0.0-1.0); Blood Urea Nitrogen 26 mg/dL (9-16); Calcium 9.3 mg/dL (8.4-10.2); Carbon Dioxide 22 mmol/L (22-29); Chloride 106 mmol/L (96-108); Creatinine Clr Calc Pharmacy 35.9; Estimated Glomerular Filt Rate > 60; Glucose Random 163 mg/dL (60-115); Lipase 20 U/L (8-78); Magnesium 2.1 mg/dL (1.6-2.6); Potassium 3.8 mmol/L (3.3-5.1); Sodium 140 mmol/L (135-145); Total Protein 6.7 g/dL (6.5-8.0)
[2024-11-20 19:36] LABS: SLIDE REVIEW MANUAL DIFF
[2024-11-20 19:44] LABS: Neutrophils Percent Manual 75 % (45-73)
[2024-11-20 19:46] LABS: Band Neutrophils Percent 20 % (3-5); Dohle Bodies PRESENT; Lymphocytes Absolute Manual 0.1 X10*3/uL (1.2-4.9); Lymphocytes Percent Manual 1 % (20-40); Monocytes Absolute Manual 0.5 X10*3/uL (0.1-1.2); Monocytes Percent Manual 4 % (2-11); Toxic Vacuolation PRESENT
[2024-11-20 19:47] LABS: Platelet Estimate NORMAL (NORMAL); Platelet Morphology Comment NORMAL; RBC Morphology NORMAL
[2024-11-20 19:56] LABS: Influenza A PCR NEGATIVE (Negative); Influenza B PCR NEGATIVE (Negative); Resp Syncy Virus RNA Qual PCR NEGATIVE (Negative); SARS COV2 PCR INHOUSE NEGATIVE (Negative)
--- NOTE | 2024-11-20 20:14 | ECG_ITS ---
Test Reason : FEVER Blood Pressure : / mmHG Vent. Rate : 087 BPM Atrial Rate : 087 BPM P-R Int : 162 ms QRS Dur : 058 ms QT Int : 348 ms P-R-T Axes : 036 029 000 degrees QTc Int : 418 ms Normal sinus rhythm Nonspecific ST abnormality Abnormal ECG No previous ECGs available Referred By: Generic ED Physician Electronically Signed By:ELIZABETH BLAND MD
[2024-11-20 20:19] VITALS: BP 106/49; PULSE 89; RESP 24; TEMP 38.4; O2SAT 97
--- NOTE | 2024-11-20 20:34 | MHC.EDTECH ---
Patient was soiled with watery diarrhea ,care given ,Patient was change into hospital gown ,and hooked up to desk monitor ,vitals taken ,RN aware of Patient high temp of 101.1 rectally .ekg taken and was read by Provider ,2nd sets of blood culture drawn and sent to lab .Patient son at bedside .Plan of care continue .
[2024-11-20 21:05] LABS: Lactic Acid 3.7 mmol/L (0.5-2.0)
--- NOTE | 2024-11-20 21:08 | PC.NURSE ---
Lab called w/ critical Lactic 3.7, charger made aware, will notify attending provider, as no provider has picked up patient yet.
[2024-11-20 21:12] LABS: Appearance Urine Clear; Color Urine Dark Yellow; Glucose Urine UA Negative (Negative); Leukocyte Esterase Urine Small (1+) (Negative); Nitrite Urine Positive (Negative); PH 5.5 (5.0-9.0); Specific Gravity - Urine 1.015 (1.005-1.025); UMIC TRIGGER UACC YES; Urine Blood Negative (Negative); Urine Ketones Trace mg/dL (Negative); Urine Protein Negative (Neg-Trace)
--- NOTE | 2024-11-20 21:17 | PC.NURSE ---
MD Gipson made aware of lactic
[2024-11-20 21:20] LABS: Bacteria Urine None Seen (None Seen); Granular Casts Urine Present; RBC Urine 0-2 /HPF (0-2); Squamous Epithelial Cell Urine 0-2 /HPF (0-2); UACC Culture Trigger YES; WBC Urine 0-5 /HPF (0-5)
[2024-11-20] MEDS: cefTRIAXone sodium 1 GM VIAL IVPUSH (21:47)
[2024-11-20] MEDS: Lactated Ringers 2,000 ML 999 ML IV (21:47)
[2024-11-20] MEDS: Loperamide HCl 2 MG CAPSULE 4 MG PO (22:10)
[2024-11-20] MEDS: ondansetron HCL 4 MG/2 ML VIAL IVPUSH (22:10)
[2024-11-20] MEDS: Acetaminophen 325 MG TABLET 975 MG PO (22:10)
[2024-11-20 22:15] VITALS: BP 97/55; PULSE 79; RESP 18; TEMP 37.9; O2SAT 98
[2024-11-20 22:20] LABS: Reflex Lactate? Lactic Acid Added
[2024-11-20 23:53] VITALS: BP 87/49; PULSE 75; RESP 17; TEMP 36.9; O2SAT 95
[2024-11-21] VITALS (8 sets, daily range): BP systolic 85–137; BP diastolic 45–78; PULSE 71–86; RESP 16–20; TEMP 36.5–37.1; O2SAT 88–96; BMI 22.2
[2024-11-21] MEDS: 0.9 % Sodium Chloride 1,000 ML 999 ML IVCONT (00:19)
[2024-11-21 01:05] LABS: Reflex Lactate? 2 Y
[2024-11-21] MEDS: Lactated Ringers 1,000 ML 500 ML IVCONT (01:47)
[2024-11-21] MEDS: iohexoL 350 MG/ML 100 ML INFUS..BTL 85 ML IV (02:00)
[2024-11-21 02:12] LABS: ~Lactic Acid-LAB USE ONLY 1.9 mmol/L (0.5-2.0)
--- NOTE | 2024-11-21 02:33 | PC.NURSE ---
Holding Levophed at this time for map of 73. O2 had dropped to 88 on room air, 2L nasal cannula applied, MD Gipson aware.
[2024-11-21] MEDS: metroNIDAZOLE/NS 500 MG/100 ML PIGGYBACK 100 MG IV ×3 (05:02→19:48)
--- NOTE | 2024-11-21 05:35 | PM.IMHP ---
History of Present Illness Date of Service: 11/21/24 Chief Complaint: Vomiting and diarrhea This is a 84-year-old female with pertinent history of hypertension, Parkinson's disease who presents to the emergency department for evaluation of vomiting and diarrhea. Patient states she went out to eat for lunch on 11/20. Patient had fish chowder, salmon and salad in [place]. Patient states her son went out with her and had everything but the fish chowder. Patient started having symptoms on 11/21. Patient has had 3 episodes of nonbloody emesis and loose nonbloody watery diarrhea on the day of presentation. Also has associated fevers and chills. Does complain of generalized abdominal discomfort, intermittent, nonprogressive, nonradiating. No one else sick at home. No chest pain, palpitations, shortness of breath, changes in urinary habits. In the emergency department, patient was found to be septic and imaging concerning for enterocolitis. She was resuscitated IV crystalloids and given ceftriaxone and metronidazole. Found to have leukocytosis with bandemia and lactic acidosis in the ER Review of Systems Constitutional: Constitutional: Reports fatigue and Reports malaise Cardiovascular: Cardiovascular: Reports no additional cardiovascular complaints Respiratory: Respiratory: Reports no additional respiratory complaints Gastrointestinal: Gastrointestinal: Reports abdominal pain, Reports diarrhea, Reports loose stools, Reports nausea and Reports vomiting Genitourinary: Genitourinary: Reports no additional female genitourinary complaints Endocrine: Endocrine: Reports fatigue [facility] Medical History (Updated 11/21/24 @ 05:51 by Ángel Chávez MD) Lymphoma Vitamin D deficiency HTN (hypertension) Parkinson disease Family History Father Myocardial infarction Mother Uterine cancer Sister Alzheimer disease Surgical History H/O colonoscopy S/P partial hysterectomy No pertinent past surgical history Social History Housing: House Alcohol intake: current Alcohol intake frequency: does not drink Patient Tobacco Use Status: Never used Tobacco Smoked in Last 30 Days: No e-Cigarette/Vaping Use: Never Used Use of substances other than those prescribed or required for medical reasons: No Advance Directives: Yes Advance Directives on File: Yes Advance Directives Date on File: 02/18/23 Do you have a plan to hurt others: No Plan Current occupational status: retired Cognitive needs: No Hearing needs: No Vision needs: Yes Meds Allergies Allergy/AdvReac Type Severity Reaction Status Date / Time clindamycin [CLINDAMYCIN] Allergy Severe DIARRHEA Verified 11/20/24 18:54 Penicillins [PCN] Allergy Intermediate Rash Verified 11/20/24 18:54 penicillin V Allergy Unknown Rash Verified 11/20/24 18:54 jax Allergy could not Verified 11/20/24 18:54 breath Active Medications: Current Medications Metronidazole (Flagyl) 500 mg in 100 mls @ 100 mls/hr IV ONCE ONE Stop: 11/21/24 05:35 Last Admin: 11/21/24 05:02 Dose: 100 mls/hr Piperacillin Sod/Tazobactam (Sod 4.5 gm/ Sodium Chloride) 100 mls @ 200 mls/hr IV Q6H RAN Home Medications ?Medication ?Instructions ?Recorded ?Confirmed ?Last Taken ?Type rasagiline 0.5 mg tablet 0.5 mg PO DAILY 09/18/20 11/21/24 Unknown History carbidopa 25 mg-levodopa 100 mg 1 tab PO .4 times a day 02/17/24 11/21/24 Unknown History tablet Physical Exam Vital Signs and Narrative: Vital Signs: Last Vital Signs Temp 97.7 F 11/21/24 02:23 Pulse 74 11/21/24 04:49 Resp 20 11/21/24 04:49 BP 104/54 L 11/21/24 04:49 Pulse Ox 96 11/21/24 04:49 O2 Del Method Nasal Cannula 11/21/24 04:49 O2 Flow Rate 2 11/21/24 04:49 BMI result Body Mass Index 21.7 Middle-aged male lying in bed in no distress Neck supple, no JVD Regular rate and rhythm, S1-S2 heard Regular breath sounds bilaterally, no wheezing or crackles appreciated Abdomen soft nontender, no guarding, no rigidity Patient is awake, alert and oriented to self, place, time and person ; no focal motor deficit Psych: Normal mood No pedal edema Results Labs 11/20/24 19:13 11/20/24 19:13 Labs: Laboratory Results - last 24 hr 11/20/24 11/20/24 11/20/24 19:13 20:13 21:07 MCV 86.8 MCH 29.5 MCHC 34.0 RDW 12.9 Plt Count 199 MPV 10.5 Immature Gran % (Auto) Cancelled Neut % (Auto) Cancelled Lymph % (Auto) Cancelled [place] % (Auto) Cancelled Eos % (Auto) Cancelled Baso % (Auto) Cancelled Lymph # (Auto) Cancelled [place] # (Auto) Cancelled Eos # (Auto) Cancelled Baso # (Auto) Cancelled Abs Immat Gran (auto) Cancelled Absolute Neuts (auto) Cancelled Absolute Nucleated RBC 0.000 Nucleated RBC % (auto) 0.0 Neutrophils % (Manual) 75 H Band Neutrophils % 20 H Lymphocytes % (Manual) 1 L Monocytes % (Manual) 4 Abs Neuts (Manual) 12.0 H Lymphocytes # (Manual) 0.1 L Monocytes # (Manual) 0.5 Toxic Vacuolation PRESENT [place]oh[place] Bodies PRESENT Platelet Estimate NORMAL Plt Morphology Comment NORMAL RBC Morphology NORMAL Smear Tech's Comments MANUAL DIFF Anion Gap 16 Estim Creat Clear Calc 35.9 Estimated GFR > 60 Random Glucose 163 H Lactic Acid 3.7 H* Lactic Acid F/U @ 2Hr Lactic Acid F/U @ 4Hr Calcium 9.3 Magnesium 2.1 Total Bilirubin 1.1 H AST 32 H ALT 15 Alkaline Phosphatase 58 Total Protein 6.7 Albumin 4.0 Lipase 20 Urine Color Dark Yellow Urine Appearance Clear Urine pH 5.5 Ur Specific [place] 1.015 Urine Protein Negative Urine Glucose (UA) Negative Urine Ketones Trace Urine Blood Negative Urine Nitrite Positive H Ur Leukocyte Esterase Small (1+) H Urine RBC 0-2 Urine WBC 0-5 Ur Squamous Epith Cells 0-2 Urine Bacteria None Seen Hyaline Casts 3-5 Granular Casts Present Influenza Type A (PCR) NEGATIVE Influenza Type B (PCR) NEGATIVE RSV RNA Qual (PCR) NEGATIVE SARS-CoV-2 RNA (RT-PCR) NEGATIVE 11/20/24 11/21/24 22:59 01:40 MCV MCH MCHC RDW Plt Count MPV Immature Gran % (Auto) Neut % (Auto) Lymph % (Auto) [place] % (Auto) Eos % (Auto) Baso % (Auto) Lymph # (Auto) [place] # (Auto) Eos # (Auto) Baso # (Auto) Abs Immat Gran (auto) Absolute Neuts (auto) Absolute Nucleated RBC Nucleated RBC % (auto) Neutrophils % (Manual) Band Neutrophils % Lymphocytes % (Manual) Monocytes % (Manual) Abs Neuts (Manual) Lymphocytes # (Manual) Monocytes # (Manual) Toxic Vacuolation Dohle Bodies Platelet Estimate Plt Morphology Comment RBC Morphology Smear Tech's Comments Anion Gap Estim Creat Clear Calc Estimated GFR Random Glucose Lactic Acid Lactic Acid F/U @ 2Hr 4.0 H* Lactic Acid F/U @ 4Hr 1.9 Calcium Magnesium Total Bilirubin AST ALT Alkaline Phosphatase Total Protein Albumin Lipase Urine Color Urine Appearance Urine pH Ur Specific [place] Urine Protein Urine Glucose (UA) Urine Ketones Urine Blood Urine Nitrite Ur Leukocyte Esterase Urine RBC Urine WBC Ur Squamous Epith Cells Urine Bacteria Hyaline Casts Granular Casts Influenza Type A (PCR) Influenza Type B (PCR) RSV RNA Qual (PCR) SARS-CoV-2 RNA (RT-PCR) Assessment and Plan (1) Enterocolitis: Status: Acute (2) Sepsis: Status: Acute Plan This is a 84-year-old female with pertinent history of hypertension, Parkinson's disease who presents to the emergency department for evaluation of vomiting and diarrhea. #. Severe sepsis due to acute enterocolitis: Resuscitated with IV crystalloids. Initiating IV ceftriaxone and metronidazole. Lactic acid and blood culture obtained. GI panel pending. Full liquid diet and advance as tolerated #. Acute lactic acidosis due to sepsis. Resolved with crystalloid resuscitation #. Hypertension: Hold antihypertensives in the setting of sepsis #. Parkinson's disease: Continue home prescription medications Med rec pending DVT prophylaxis: Lovenox Full code. Discussed with patient at bedside Admit as inpatient and will require two night minimum hospital stay for IV antibiotics (as above), which is not possible in a lesser acute setting. Quality Stroke Does the patient have a stroke diagnosis?: No VTE Prior VTE?: No VTE Risk Level:: Medical - moderate - high VTE Device Contraindication: Treatment Not Indicated VTE Drug Contraindication: N/A - Med Ordered
[2024-11-21] MEDS: Enoxaparin Sodium 30 MG/0.3 ML SYRINGE SUBCUT (08:34)
--- NOTE | 2024-11-21 08:37 | PHA.MEDREC ---
Addendum entered by Leslee Espinoza RPh 11/21/24 09:30: Reviewed by [facility]. Original Note: Pharmacy Consult ? Medication Reconciliation Pharmacy reviewed med rec done by nursing. Spoke with patient and confirmed med list. Patient confirmed she is taking the Carbidopa-Levodopa 4 times a day. She confirmed she is not taking the Docusate tablet or Lactulose solution for constipation anymore and confirmed the Miralax once daily but thinks she isnt feeling well because of taking the Miralax. She confirmed she is still taking the Rasagiline 0.5mg tab and stated the last time she filled it she only got a qty of 17 vs her normal 90.
--- NOTE | 2024-11-21 09:39 | PM.EVENT ---
Event Note Date of Service: 11/21/24 Event Note: Day Team Follow up S Seen and examined reports abd pain O vitals - last documented gen - appears uncomfortable abd - soft with mild ttp neuro - resting tremor A/P 84 yo F with n/v/d/abd pain after eating out; ct showing diffuse enterocolitis continue empiric abx, stool studies if able hold BP meds IVF continue parkinsons meds advance diet as tolerated Time Spent With Patient Time: Total time managing care of this patient today ____ minutes.
[2024-11-21] MEDS: Lactated Ringers 1,000 ML 100 ML IVCONT (10:39)
[2024-11-21] MEDS: Carbidopa/Levodopa 25/100 TABLET 1 TAB PO ×4 (10:40→19:48)
--- NOTE | 2024-11-21 12:33 | MHC.CM.PN ---
LEAD SOFTWARE ARCHITECT SPOKE WITH PT'S HCP (SON, KOREY)[phone] ON THE PHONE. PT'S SON STATES THAT PT LIVES ALONE PT'S SON STATES THAT PT USES A [facility] PT'S SON STATES THAT DANYELLE MCCAIN IS PT'S PCP PT'S INSURANCE IS MEDICARE PT'S MEDICARE RIGHT'S EXPLAINED TO PT'S SON. IMM LEFT AT BEDSIDE PT'S SON STATES THAT PT WILL RECEIVE A RIDE HOME AT DISCHARGE.
[2024-11-21 12:51] LABS: CDiff Gene PCR NEGATIVE (Negative)
[2024-11-21 13:09] LABS: Adenovirus F 40/41 Not Detected (Not Detect.); Astrovirus Not Detected (Not Detect.); Campylobacter Not Detected (Not Detect.); Cryptosporidium Not Detected (Not Detect.); Cyclospora cayetanensis Not Detected (Not Detect.); E. coli EAEC Not Detected (Not Detect.); E. coli EPEC Not Detected (Not Detect.); E. coli ETEC Not Detected (Not Detect.); E. coli STEC Not Detected (Not Detect.); Entamoeba histolytica Not Detected (Not Detect.); Giardia lamblia Not Detected (Not Detect.); Norovirus GI/GII Not Detected (Not Detect.); Plesiomonas shigelloides Not Detected (Not Detect.); Rotavirus A Not Detected (Not Detect.); Salmonella Not Detected (Not Detect.); Sapovirus Not Detected (Not Detect.); Shigella sp./EIEC Not Detected (Not Detect.); Vibrio Not Detected (Not Detect.); Vibrio Cholerae Not Detected (Not Detect.); Yersinia enterocolitica Not Detected (Not Detect.)
[2024-11-21] MEDS: cefTRIAXone sodium 1 GM VIAL IVPUSH (20:58)
[2024-11-22] MEDS: 0.9 % Sodium Chloride Flush 3 ML SYRINGE IVFLUSH (01:00)
[2024-11-22] MEDS: Lactated Ringers 1,000 ML 100 ML IVCONT (03:03)
[2024-11-22 04:00] VITALS: BP 145/67; PULSE 87; RESP 16; TEMP 36.7; O2SAT 94
[2024-11-22] MEDS: metroNIDAZOLE/NS 500 MG/100 ML PIGGYBACK 100 MG IV ×2 (04:16→11:33)
[2024-11-22] MEDS: Enoxaparin Sodium 30 MG/0.3 ML SYRINGE SUBCUT (05:24)
[2024-11-22 06:37] LABS: MANUAL DIFF FLAG NO
[2024-11-22 06:42] LABS: Basophils Percent Auto 0.3 % (0-2); Eosinophils Absolute Auto 0.2 X10*3/uL (0.0-0.4); Eosinophils Percent Auto 2.8 % (0-4); Hematocrit 35.9 % (37.0-47.0); Hemoglobin 12.2 g/dl (12.0-16.0); Imm Gran Abs Auto 0.02 X10*3/uL (0.00-0.03); Imm Gran Pct Auto 0.3 % (0.0-0.4); Lymphocytes Absolute Auto 1.3 X10*3/uL (1.2-4.9); Mean Corpuscular Hemoglobin 29.3 pg (27.0-33.0); Mean Corpuscular Volume 86.3 fL (80.0-98.0); Mean Platelet Volume 11.5 fL (9.4-12.3); Monocytes Absolute Auto 0.5 X10*3/uL (0.1-1.2); Monocytes Percent Auto 8.4 % (2-11); Neutrophils Absolute Auto 4.4 x10*3/uL (2.0-8.3); Neutrophils Percent Auto 68.2 % (45-73); Platelet Count 172 X10*3/uL (160-400); Red Blood Count 4.16 X10*6/uL (4.20-5.50); Red Cell Distribution Width 13.2 % (11.0-16.0); White Blood Count 6.4 X10*3/uL (4.8-10.8)
[2024-11-22 06:57] LABS: Alanine Aminotransferase 8 U/L (0-31); Albumin Level 3.1 g/dL (3.5-5.0); Alkaline Phosphatase 42 U/L (39-117); Anion Gap 9 (12-20); Aspartate Amino Transferase 27 U/L (5-31); Bilirubin Total 0.7 mg/dL (0.0-1.0); Blood Urea Nitrogen 12 mg/dL (9-16); Calcium 8.4 mg/dL (8.4-10.2); Carbon Dioxide 27 mmol/L (22-29); Chloride 109 mmol/L (96-108); Creatinine Clr Calc Pharmacy 45.7; Estimated Glomerular Filt Rate > 60; Glucose Random 83 mg/dL (60-115); Potassium 3.1 mmol/L (3.3-5.1); Sodium 142 mmol/L (135-145); Total Protein 5.4 g/dL (6.5-8.0)
--- NOTE | 2024-11-22 07:42 | PC.NURSE ---
Pharmacy called this AM to order Rasagiline, Med was given to pharmacy yesterday AM
[2024-11-22 07:57] VITALS: BP 143/71; PULSE 81; RESP 16; TEMP 36.9; O2SAT 96
[2024-11-22] MEDS: Potassium Chloride Packet 20 MEQ PACKET 40 MEQ PO (08:02)
[2024-11-22] MEDS: Carbidopa/Levodopa 25/100 TABLET 1 TAB PO ×2 (08:03→13:05)
[2024-11-22] MEDS: RASAGILINE 0.5 MG 0.5 EACH PO (08:33)
--- NOTE | 2024-11-22 13:40 | MHC.CM.PN ---
IMM 11/21/24 Patient is discharged to home today. Her son is a Physical Therapist @ [employer] [facility] [employer]. Home care services and Out patient services have been offered to the patient. Pt + son decline the services. Patients son asked her for her preference. She will go home with P.T. provided by her son. He will also provide transportation home.
--- NOTE | 2024-11-22 13:44 | P.DS_ITS ---
DS: Providers Provider Date of Service: 11/22/24 Date of admission: 11/21/24 05:34 Date of discharge: 11/22/24 Primary care physician: Radha Cramer MD DS: Diagnosis Discharge Diagnosis (1) Enterocolitis: Status: Acute (2) Sepsis: Status: Acute DS: Summary Hospital Course Hospital Course: HPI From admission H&P: This is a 84-year-old female with pertinent history of hypertension, Parkinson's disease who presents to the emergency department for evaluation of vomiting and diarrhea. Patient states she went out to eat for lunch on 11/20. Patient had fish chowder, salmon and salad in [place]. Patient states her son went out with her and had everything but the fish chowder. Patient started having symptoms on 11/21. Patient has had 3 episodes of nonbloody emesis and loose nonbloody watery diarrhea on the day of presentation. Also has associated fevers and chills. Does complain of generalized abdominal discomfort, intermittent, nonprogressive, nonradiating. No one else sick at home. No chest pain, palpitations, shortness of breath, changes in urinary habits. In the emergency department, patient was found to be septic and imaging concerning for enterocolitis. She was resuscitated IV crystalloids and given ceftriaxone and metronidazole. Found to have leukocytosis with bandemia and lactic acidosis in the ER Hospital Course: Patient presented to the hospital with vomiting and diarrhea. She was found to have CT imaging concerning for enterocolitis. She was also found to have septic physiology. She had blood cultures drawn was given intravenous fluids and was started on IV antibiotics. Over the course of her hospitalization the patient's symptoms have significantly improved. She is tolerating a diet. She had no further diarrhea. Her GI panel is negative as is her C diff testing. Her blood cultures are negative at 24 hours. Since the patient is feeling better, she would like to go home. She will be treated with 3 more days of antibiotics for possible infectious diarrhea. The patient did have low blood pressure during the start of her hospitalization. She was treated with intravenous fluids and her antihypertensives were held. Her blood pressure has now started to rebound. She can hold her antihypertensives for 2 more days and resume it on 11/24/2024. Patient has been evaluated by Physical therapy prior to discharge and has been deemed appropriate for outpatient physical therapy. Final discharge diagnosis 1. Sepsis due to enterocolitis 2. Hypotension 3. Acute lactic acidosis 4. Parkinson's disease, stable in the hospital Time Attestation Discharge Coordination Time (in mins): 40 Quality: Safe Use of Opioids Does Pt have an Active Cancer Diagnosis on the Problem List?: No Quality: Stroke Does the patient have a stroke diagnosis?: No Physical Exam Vital Signs: Vital Signs: Last Vital Signs Temp 98.4 F 11/22/24 07:57 Pulse 81 11/22/24 07:57 Resp 16 11/22/24 07:57 BP 143/71 H 11/22/24 07:57 Pulse Ox 96 11/22/24 07:57 O2 Del Method Room Air 11/22/24 07:57 O2 Flow Rate 4.0 11/21/24 16:00 BMI result Body Mass Index 22.2 Const: Other: General - no acute distress, appears comfortable Cardiovascular - regular rate and rhythm, S1-S2 Lungs - normal respiratory effort, clear to auscultation bilaterally, no wheezing Abdomen - soft, nontender, no rebound or guarding Extremities - no edema bilaterally Neuro - awake and alert, no focal deficits; DS: Data Data Completed and Pending Labs on day of discharge: Laboratory Results - last 24 hr 11/22/24 05:02 WBC 6.4 RBC 4.16 L Hgb 12.2 Hct 35.9 L MCV 86.3 MCH 29.3 MCHC 34.0 RDW 13.2 Plt Count 172 MPV 11.5 Immature Gran % (Auto) 0.3 Neut % (Auto) 68.2 Lymph % (Auto) 20.0 [place] % (Auto) 8.4 Eos % (Auto) 2.8 Baso % (Auto) 0.3 Lymph # (Auto) 1.3 [place] # (Auto) 0.5 Eos # (Auto) 0.2 Baso # (Auto) 0.0 Abs Immat Gran (auto) 0.02 Absolute Neuts (auto) 4.4 Absolute Nucleated RBC 0.000 Nucleated RBC % (auto) 0.0 Sodium 142 Potassium 3.1 L Chloride 109 H Carbon Dioxide 27 Anion Gap 9 L BUN 12 Creatinine 0.69 Estim Creat Clear Calc 45.7 Estimated GFR > 60 Random Glucose 83 Calcium 8.4 D Total Bilirubin 0.7 AST 27 ALT 8 Alkaline Phosphatase 42 Total Protein 5.4 L Albumin 3.1 L Preliminary micro results at discharge 12/29/24 20:21 Blood Culture - Preliminary Blood - Venous No growth after 24 hours. 11/20/24 20:13 Blood Culture - Preliminary Blood - Venous No growth after 24 hours. Discharge Plan Discharge Anticipated Discharge Date/Time: 11/22/24 13:32 Patient Disposition: Home, Self-Care Discharge Diagnosis: Gastroenteritis Referrals: Radha rCamer MD [Primary Care Provider] - 1 Week Discharge Medications: New cefuroxime axetil 500 mg tablet 500 mg PO Q12H Qty: 6 0RF metronidazole 500 mg tablet 500 mg PO Q8H Qty: 9 0RF Continued polyethylene glycol 3350 [Miralax] 17 gram/dose powder 17 g PO DAILY Qty: 238 0RF rasagiline 0.5 mg tablet 0.5 mg PO DAILY carbidopa-levodopa 25-100 mg tablet 1 tab PO QID Held amlodipine 5 mg tablet 5 mg PO DAILY Qty: 90 3RF Hold Instructions: Resume on 11/24/24. lisinopril-hydrochlorothiazide 10-12.5 mg tablet 1 tab PO DAILY Qty: 90 3RF Hold Instructions: Resume on 11/24/24. Discharge Orders: Discharge Order (Routine); Ordered 11/22/24 Ordered By: Balbir Hodges Diet: Advance to usual diet Activity on Discharge: As tolerated Stand Alone Forms: Patient Portal Discharge page Print Language: Bengali Care Plan Goals: To finish 3 more days of antibiotics Hold your blood pressure meds for the next 2 days, you can restart on 11/24/24 Health Concerns: see discharge summary Plan of Treatment: see discharge summary Assessment: see discharge summary Patient Instructions: Cefuroxime (By mouth), Metronidazole (By mouth)
== END 2024-11-22 14:27 | disposition home or self-care (01) | DRG 872 ==
LOC: HO.ED 11-21 04:42 → HO.EDOVER 11-21 05:41 → HO.S3 11-21 09:07
PROVIDERS: Physician Assistant Medical; Admitting Provider Student in an Organized Health Care Education/Training Program; Emergency Provider Emergency Medicine; PCP Internal Medicine; Visit Provider Family Medicine
DX: A41.9 Sepsis, unspecified organism (principal); E87.21 Acute metabolic acidosis; I10 Essential (primary) hypertension; K52.9 Noninfective gastroenteritis and colitis, unspecified; G20.A1 Parkinson's disease without dyskinesia, without mention of fluctuations; I95.9 Hypotension, unspecified; Z20.822 Contact with and (suspected) exposure to COVID-19; Z79.899 Other long term (current) drug therapy
CPT/HCPCS: 0241U; 36415; 71045; 74177; 80053; 81001; 83605; 83690; 83735; 85007; 85025; 85027; 87040; 87086; 87493; 87507; 93005; 97161; 99285; J0696; J1650; J1836; J2405; J7120; Q9967

== ENCOUNTER → 2024-11-20 20:14 | Outpatient (BNV) | payer MEDICARE, SELFPAY | PROVIDERS: Admitting Provider Student in an Organized Health Care Education/Training Program; Emergency Provider Emergency Medicine; PCP Internal Medicine; Visit Provider Internal Medicine Cardiovascular Disease | DX: R94.31 Abnormal electrocardiogram [ECG] [EKG] (principal) | CPT/HCPCS: 93010 ==

== ENCOUNTER → 2024-11-20 21:45 | Outpatient (BNV) | payer MEDICARE, SELFPAY | PROVIDERS: Emergency Provider Emergency Medicine; PCP Internal Medicine; Visit Provider Radiology Neuroradiology | DX: R91.8 Other nonspecific abnormal finding of lung field (principal) | CPT/HCPCS: 71045 ==

== ENCOUNTER → 2024-11-21 00:03 | Outpatient (BNV) | payer MEDICARE, SELFPAY | PROVIDERS: Emergency Provider Emergency Medicine; PCP Internal Medicine; Visit Provider Radiology Neuroradiology | DX: R10.84 Generalized abdominal pain (principal) | CPT/HCPCS: 74177 ==

== ENCOUNTER → 2024-11-21 05:34 | Outpatient (BNV) | payer MEDICARE, SELFPAY | PROVIDERS: Admitting Provider Student in an Organized Health Care Education/Training Program; Emergency Provider Emergency Medicine; PCP Internal Medicine; Visit Provider Student in an Organized Health Care Education/Training Program | DX: K52.9 Noninfective gastroenteritis and colitis, unspecified (principal); A41.9 Sepsis, unspecified organism | CPT/HCPCS: 99239 ==

== ENCOUNTER 2025-01-05 14:12 | Inpatient (IN) | payer MEDICARE, SELFPAY ==
--- NOTE | ~2025-01-05 | CT_ITS ---
CLINICAL HISTORY: abd pain, distention, constipation CT abdomen and pelvis with contrast Comparison: CT/SR - CT ABDOMEN PELVIS W IV CON - 11/21/24 01:51 EST Findings: No consolidation or effusion. Coronary artery calcifications present. Mild cardiomegaly. Clear lung bases. There is a 1 cm cyst in the caudate lobe of the liver. There is a 1 cm cyst of the inferior aspect of the right lobe of the liver. Liver is otherwise unremarkable. The spleen, adrenal glands, pancreas and gallbladder are unremarkable. Both kidneys are normal in size and there is no hydronephrosis. No ureteral stone seen. There is a large stool ball in the rectum measuring 6.4 x 6.5 x 9.6 cm, with wall thickening of the inferior rectum. There is large volume fecal loading within the colon. Small bowel loops are normal caliber. The abdominal aorta is normal caliber with moderate atherosclerotic plaquing. Pelvic contents unremarkable. Normal appendix. No free air or ascites. The bones are intact. IMPRESSION: Large stool ball within the rectum with rectal wall thickening raising concern for stercoral colitis. Large volume fecal loading within the colon. This document has been electronically signed by: Freddy Edmondson MD on 01/05/2025 19:06:15
--- NOTE | ~2025-01-05 | XR_ITS ---
CLINICAL HISTORY: constipation 1 view abdomen Comparison: CT/SR - CT ABDOMEN PELVIS W IV CON - 01/05/25 17:53 EST Findings: No pneumoperitoneum or pneumatosis. Contrast noted throughout the colon. Fecal retention in the rectosigmoid on the recent CT is no longer identified. No abnormal calcifications. No acute fractures. IMPRESSION: No bowel obstruction or free air. Improved fecal retention. A portion of the rectosigmoid is obscured by contrast from overlying colon. This document has been electronically signed by: Desmond Rojas MD on 01/07/2025 11:43:11
[2025-01-05 14:58] VITALS: BP 142/86; PULSE 110; RESP 18; TEMP 36.2; O2SAT 98; BMI 20.8
--- NOTE | 2025-01-05 15:01 | ED_ITS ---
HPI - General Adult General Chief complaint: General Medical Stated complaint: Constipation 5 days Time Seen by Provider: 01/05/25 15:15 Source: patient and family (patient's son) Mode of arrival: ambulatory Limitations: no limitations History of Present Illness ED Provider: Karie Stewart PA-C HPI narrative: Patient is an 84 year old assigned female at with a history of HTN, HLD, and parkinson's presenting to the emergency department today with abdominal pain and constipation. Patient states that she has not had a bowel movement or passed gas in 5 days. Patient denies any dizziness, lightheadedness, nausea, vomiting, fever, chills, blurry vision, double vision, loss of vision, chest pain, difficulty breathing, shortness of breath, back pain, night sweats, pain with urination, increased urinary frequency, increased urinary urgency, blood in her urine, syncope or a near syncopal episode, recent trauma or falls, or any other complaints at this time. Onset (ago): day(s) (5) Location: abdomen Relieving factors: none Exacerbating factors: none Associated symptoms: denies other symptoms Treatments prior to arrival: none Related Data Home Medications ?Medication ?Instructions ?Recorded ?Confirmed rasagiline 0.5 mg tablet 0.5 mg PO DAILY 09/18/20 11/24/24 carbidopa 25 mg-levodopa 100 mg 1 tab PO QID 02/17/24 11/24/24 tablet Previous Rx's ?Medication ?Instructions ?Recorded polyethylene glycol 3350 17 17 g PO DAILY #238 grams 12/08/22 gram/dose oral powder (Miralax) amlodipine 5 mg tablet 5 mg PO DAILY #90 tabs 05/25/24 lisinopril 10 1 tab PO DAILY #90 tabs 06/03/24 mg-hydrochlorothiazide 12.5 mg tablet cefuroxime axetil 500 mg tablet 500 mg PO Q12H #6 tabs 11/22/24 metronidazole 500 mg tablet 500 mg PO Q8H #9 tabs 11/22/24 Allergies Allergy/AdvReac Type Severity Reaction Status Date / Time clindamycin [CLINDAMYCIN] Allergy Severe DIARRHEA Verified 01/05/25 15:02 Penicillins [PCN] Allergy Intermediate Rash Verified 01/05/25 15:02 penicillin V Allergy Unknown Rash Verified 01/05/25 15:02 jax Allergy could not Verified 01/05/25 15:02 breath Review of Systems 2 Constitutional: Constitutional: Reports no additional constitutional complaints, Denies chills, Denies fever(s) and Denies night sweats Eyes: Eyes: Reports no additional eye complaints, Denies blurry vision, Denies change in vision, Denies diplopia, Denies eye discharge, Denies loss of vision and Denies eye pain ENT: Denies dizziness Cardiovascular: Cardiovascular: Reports no additional cardiovascular complaints, Denies chest pain, Denies lightheadedness, Denies Loss of Consciousness and Denies dyspnea Respiratory: Respiratory: Reports no additional respiratory complaints and Denies dyspnea Gastrointestinal: Gastrointestinal: Reports no additional gastrointestinal complaints, Reports abdominal pain, Reports change in bowel habits, Reports constipation, Denies nausea and Denies vomiting Genitourinary: Genitourinary: Denies hematuria, Denies urinary frequency, Denies dysuria, Denies urinary incontinence, Denies urinary hesitancy and Denies urinary urgency Musculoskeletal: Musculoskeletal: Reports no additional musculoskeletal complaints, Denies numbness and Denies tingling Neurologic: Denies dizziness, Denies loss of vision, Denies numbness and Denies tingling Psychiatric: Psychiatric: Reports no additional psychiatric complaints Endocrine: Endocrine: Reports no additional endocrine complaints Hematologic/Lymphatic: Hematologic/Lymphatic: Reports no additional hematologic/lymphatic complaints Allergic/Immunologic: Allergic/Immunologic: Reports no additional allergic/immunologic complaints [facility] Past Medical History Attestation statement: The following information was validated with the patient. (patient's son validated all information) Source: old records reviewed, obtained from family (patient's son provided additional history and confirmed the history provided by the patient) and nursing notes reviewed Medical History Sepsis Acute dehydration Nausea vomiting and diarrhea Hypotension Enterocolitis Lymphoma Vitamin D deficiency HTN (hypertension) Parkinson disease Surgical History H/O colonoscopy S/P partial hysterectomy No pertinent past surgical history Family History Family History Father Myocardial infarction Mother Uterine cancer Sister Alzheimer disease Social History Social History Household Members: None Housing: House Do you presently have visiting nurse or other home services: No Alcohol intake: current Alcohol intake frequency: does not drink Patient Tobacco Use Status: Never used Tobacco Smoked in Last 30 Days: No e-Cigarette/Vaping Use: Never Used Advance Directives: Yes Advance Directives on File: Yes Advance Directives Date on File: 02/18/23 Do you have a plan to hurt others: No Plan service: No Current occupational status: retired Cognitive needs: No Hearing needs: No Vision needs: Yes Physical Exam ED Vital Signs: Vital Signs - 24 hr 01/05/25 14:58 01/05/25 18:43 Temperature 97.1 F 97.8 F Pulse Rate 110 H 99 Respiratory Rate 18 16 Blood Pressure 142/86 H 146/75 H Pulse Oximetry 98 99 Oxygen Delivery Method Room Air Room Air BMI result Body Mass Index 20.8 Const General: cooperative, no acute distress, alert and awake Nutritional Appearance: well nourished Orientation/consciousness: patient oriented x3 Limitations: no limitations HENMT Head: Yes normal to inspection and Yes atraumatic Ears: hearing grossly normal bilaterally and external ears normal General nose exam: Normal external nose present, no nasal discharge noted and no epistaxis Face and sinus: Yes normal facial exam, No abrasion and No laceration Mouth: Normal oral and palatal mucosa present, no drooling and no muffled voice Eyes General: appearance normal, both eyes and all related structures Periorbital: periorbital findings normal Eyelids: Yes eyelids normal Conjunctivae: conjunctivae normal Pupils: Equal, round and reactive pupils present EOM: EOMs intact bilaterally Neck Neck: Yes normal visual inspection, Yes full ROM and Yes no lymphadenopathy Chest Chest palpation & inspection: normal inspection of the chest Resp Effort & Inspection: normal respiratory effort and able to speak in complete sentences GI Inspection: Yes distended Palpation (GI): Soft to palpation, not firm, nontender, no guarding and not rigid Neuro Other: tremor - chronic for the patient and consistent with her baseline parkinson's General: patient oriented x3, moves all extremities and CN's II-XI intact bilaterally Cranial nerves: Yes Equal, round and reactive pupils present Cognition (Neuro): normal cognition Extrem General: Yes normal to inspection, Yes full ROM and Yes capillary refill normal Psych Appearance: grossly normal Mental Status: mental status grossly normal Affect: normal affect Attitude: cooperative Thought process: Normal thought process present Thought content: Normal thought content present Insight: Good insight present (Psych) Course Course Course Narrative: This is a rapid medical exam performed by Ayaka Rider NP: Additional HPI, ROS, PE not included below will be deferred to primary provider. Patient is an 84-year-old female with history of Parkinsons, HTN, lymphoma presenting with severe abdominal pain, distention. Patient very uncomfortable brought directly to ED bed. Medications Administered Discontinued Medications Generic Name Dose Route Start Last Admin Trade Name Christophe PRN Reason Stop Dose Admin Diatrizoate Meglum/Diatrizoate Sod 30 ml 01/05/25 18:00 01/05/25 18:00 Diatrizoate Meglumine, Sodium 30 Ml Solution PO 01/05/25 18:01 30 ml ONCE ONE Administration Iohexol 100 ml 01/05/25 17:59 01/05/25 17:59 Iohexol 350 Mg/Ml 100 Ml Infus..Btl IV 01/05/25 18:00 85 ml ONCE ONE Administration Medical Decision Making Medical Decision Making [facility] Narrative: Patient is an 84 year old assigned female at with a history of HTN, HLD, and parkinson's presenting to the emergency department today with abdominal pain and constipation. Patient's physical exam was as noted in the physical exam portion of this note. Patient's blood work was unremarkable. Patient's CT abd/pelvis showed extensive constipation. I spoke to Dr. Pierce who recommended enemas + strict oral bowel regimen with close follow up. I spoke to the hospitalist team who agreed to admission to begin this process. I explained my physical exam findings as well as all test results to the patient and the patient's son. I answered all questions asked by the patient and the patient's son. Patient and the patient's son verbalized agreement and understanding with this treatment plan and admission. Differential Diagnosis Differential Diagnoses: The differential diagnosis associated with the presentation includes Severe constipation Abdominal pain Admission/Observation Consideration of admission/observation: Escalation of care including admission/observation considered Patient admitted. Consult Healthcare Provider Management of the patient was discussed with: Hospitalist (Agreed to admission as noted in the MDM Rationale portion of this note.) and Archivist Economic History (Spoke to Dr. Pierce as noted in the MDM Rationale portion of this note.) Lab Data [facility] Lab Attestation statement: I reviewed the patient's lab results. My interpretation of these results are in the MDM Rationale portion of this note. 01/05/25 15:27 01/05/25 15:27 Labs: Lab Results 01/05/25 Range/Units 15:27 WBC 8.3 (4.8-10.8) X10*3/uL RBC 4.69 (4.20-5.50) X10*6/uL Hgb 13.4 (12.0-16.0) g/dl Hct 40.5 (37.0-47.0) % MCV 86.4 (80.0-98.0) fL MCH 28.6 (27.0-33.0) pg MCHC 33.1 (31.0-35.0) g/dl RDW 13.9 (11.0-16.0) % Plt Count 209 (160-400) X10*3/uL MPV 10.4 (9.4-12.3) fL Immature Gran % (Auto) 0.5 H (0.0-0.4) % Neut % (Auto) 65.3 (45-73) % Lymph % (Auto) 24.3 (20-40) % [place] % (Auto) 8.2 (2-11) % Eos % (Auto) 1.2 (0-4) % Baso % (Auto) 0.5 (0-2) % Lymph # (Auto) 2.0 (1.2-4.9) X10*3/uL [place] # (Auto) 0.7 (0.1-1.2) X10*3/uL Eos # (Auto) 0.1 (0.0-0.4) X10*3/uL Baso # (Auto) 0.0 (0.0-0.2) X10*3/uL Abs Immat Gran (auto) 0.04 H (0.00-0.03) X10*3/uL Absolute Neuts (auto) 5.4 (2.0-8.3) x10*3/uL Absolute Nucleated RBC 0.000 (0.0-0.012) X10*3/uL Nucleated RBC % (auto) 0.0 (0.0-0.2) /100WBC PT 10.5 L (10.9-12.4) SEC INR 0.9 (0.9-1.1) Sodium 137 (135-145) mmol/L Potassium 4.0 D (3.3-5.1) mmol/L Chloride 102 (96-108) mmol/L Carbon Dioxide 26 (22-29) mmol/L Anion Gap 13 (12-20) BUN 22 H (9-16) mg/dL Creatinine 0.72 (0.5-1.4) mg/dL Estim Creat Clear Calc 46.0 Estimated GFR > 60 Random Glucose 98 (60-115) mg/dL Calcium 9.1 D (8.4-10.2) mg/dL Magnesium 1.8 (1.6-2.6) mg/dL Total Bilirubin 0.6 (0.0-1.0) mg/dL AST 35 H (5-31) U/L ALT 13 (0-31) U/L Alkaline Phosphatase 63 (39-117) U/L Total Protein 7.5 (6.5-8.0) g/dL Albumin 4.0 (3.5-5.0) g/dL Lipase 20 (8-78) U/L Independent Interpretation I performed an independent interpretation of an: CT Scan Interpretation: My interpretation is in agreement with the radiologist's impression of this imaging study. L Report Number: [id number]: Total DLP = 462.00 mGy-cm CLINICAL HISTORY: abd pain, distention, constipation CT abdomen and pelvis with contrast Comparison: CT/SR - CT ABDOMEN PELVIS W IV CON - 11/21/24 01:51 EST Findings: No consolidation or effusion. Coronary artery calcifications present. Mild cardiomegaly. Clear lung bases. There is a 1 cm cyst in the caudate lobe of the liver. There is a 1 cm cyst of the inferior aspect of the right lobe of the liver. Liver is otherwise unremarkable. The spleen, adrenal glands, pancreas and gallbladder are unremarkable. Both kidneys are normal in size and there is no hydronephrosis. No ureteral stone seen. There is a large stool ball in the rectum measuring 6.4 x 6.5 x 9.6 cm, with wall thickening of the inferior rectum. There is large volume fecal loading within the colon. Small bowel loops are normal caliber. The abdominal aorta is normal caliber with moderate atherosclerotic plaquing. Pelvic contents unremarkable. Normal appendix. No free air or ascites. The bones are intact. IMPRESSION: Large stool ball within the rectum with rectal wall thickening raising concern for stercoral colitis. Large volume fecal loading within the colon. This document has been electronically signed by: Freddy Edmondson MD on 01/05/2025 19:06:15 Dictated By: Freddy Edmondson MD Signed By: Electronically signed by Freddy Edmondson MD 01/05/25 190 Radiology Impression Discussion of test interpretation with radiology: I have reviewed the radiologist's reading. Independent Historian Clinical information obtained from an independent historian. History obtained from or confirmed by: Other (patient's son provided additional history and confirmed the history provided by the patient.) Critical Care Time Critical Care Time Critical Care Time: Yes Total Critical Care Time: 32 Attestation: I spent 32 minutes of Critical Care Time with this patient. This does not include time spent on separately reported billable procedures. Discharge Plan Discharge Clinical Impression: Constipation Patient Disposition: Admitted As Inpatient Prescriptions: No Action amlodipine 5 mg tablet 5 mg PO DAILY Qty: 90 3RF lisinopril-hydrochlorothiazide 10-12.5 mg tablet 1 tab PO DAILY Qty: 90 3RF polyethylene glycol 3350 [Miralax] 17 gram/dose powder 17 g PO DAILY Qty: 238 0RF cefuroxime axetil 500 mg tablet 500 mg PO Q12H Qty: 6 0RF metronidazole 500 mg tablet 500 mg PO Q8H Qty: 9 0RF rasagiline 0.5 mg tablet 0.5 mg PO DAILY carbidopa-levodopa 25-100 mg tablet 1 tab PO QID Print Language: Kinyarwanda
[2025-01-05 15:33] LABS: MANUAL DIFF FLAG NO
[2025-01-05 15:36] LABS: Basophils Percent Auto 0.5 % (0-2); Eosinophils Absolute Auto 0.1 X10*3/uL (0.0-0.4); Eosinophils Percent Auto 1.2 % (0-4); Hematocrit 40.5 % (37.0-47.0); Hemoglobin 13.4 g/dl (12.0-16.0); Imm Gran Abs Auto 0.04 X10*3/uL (0.00-0.03); Imm Gran Pct Auto 0.5 % (0.0-0.4); Lymphocytes Percent Auto 24.3 % (20-40); Mean Corpuscular HGB Conc 33.1 g/dl (31.0-35.0); Mean Corpuscular Hemoglobin 28.6 pg (27.0-33.0); Mean Corpuscular Volume 86.4 fL (80.0-98.0); Mean Platelet Volume 10.4 fL (9.4-12.3); Monocytes Absolute Auto 0.7 X10*3/uL (0.1-1.2); Monocytes Percent Auto 8.2 % (2-11); Neutrophils Absolute Auto 5.4 x10*3/uL (2.0-8.3); Neutrophils Percent Auto 65.3 % (45-73); Platelet Count 209 X10*3/uL (160-400); Red Blood Count 4.69 X10*6/uL (4.20-5.50); Red Cell Distribution Width 13.9 % (11.0-16.0); White Blood Count 8.3 X10*3/uL (4.8-10.8)
[2025-01-05 15:57] LABS: Alanine Aminotransferase 13 U/L (0-31); Alkaline Phosphatase 63 U/L (39-117); Anion Gap 13 (12-20); Aspartate Amino Transferase 35 U/L (5-31); Bilirubin Total 0.6 mg/dL (0.0-1.0); Blood Urea Nitrogen 22 mg/dL (9-16); Calcium 9.1 mg/dL (8.4-10.2); Carbon Dioxide 26 mmol/L (22-29); Chloride 102 mmol/L (96-108); Estimated Glomerular Filt Rate > 60; Glucose Random 98 mg/dL (60-115); Lipase 20 U/L (8-78); Magnesium 1.8 mg/dL (1.6-2.6); Sodium 137 mmol/L (135-145); Total Protein 7.5 g/dL (6.5-8.0)
[2025-01-05 16:20] LABS: INTERNATIONAL NORM RATIO 0.9 (0.9-1.1); Prothrombin Time 10.5 SEC (10.9-12.4)
[2025-01-05] MEDS: iohexoL 350 MG/ML 100 ML INFUS..BTL IV (17:59)
[2025-01-05] MEDS: Diatrizoate Meglumine, Sodium 30 ML SOLUTION PO (18:00)
[2025-01-05 18:43] VITALS: BP 146/75; PULSE 99; RESP 16; TEMP 36.6; O2SAT 99
--- NOTE | 2025-01-05 19:13 | PM.IMHP ---
History of Present Illness Date of Service: 01/05/25 Attending physician on admission: Ángel Chávez Chief Complaint: Abdominal pain Pt is an 84-year-old female with a PMH significant for?Parkinson's disease, HTN, chronic back pain, and chronic constipation who presents to the ED for evaluation of abdominal pain and?constipation. Pt reports has been experiencing severe constipation for the past 6-7 days, though pt notes has not had consistent bowel movements for at least the past 2-3 weeks. Complains of intermittent ?spasms? and lower abdominal and rectal pain. Has had intermittent small amounts of liquid diarrhea including brief episode today. Has overall felt bloated, weak, and had difficulty sleeping. Denies nausea or vomiting. Pt with a long hx of chronic constipation going back many decades. Has been on various different bowel regimens in the past and attempted to watch her diet, though overall to little effect. Has had multiple presentations to the ED in the past for similar symptoms. No chest pain/pressure, palpitations. Denies fever, chills. No SOB or difficulty breathing. In the ED pt was tachycardic up to 110 and hypertensive up to 146/75. Labs were grossly unremarkable and around baseline for pt. No leukocytosis. Stable H&H. No significant electrolyte abnormalities. Renal and hepatic function baseline. Lipase WNL. CT?of abdomen and pelvis found large stool ball within rectum with rectal wall thickening concerning for stercoral colitis. Also found large volume of fecal loading within colon. Pt will be admitted to the hospital under observation for treatment and further evaluation of severe constipation that failed outpatient therapy. Review of Systems Review of Systems: Negative except for that which is stated in the [facility] Medical History Sepsis Acute dehydration Nausea vomiting and diarrhea Hypotension Enterocolitis Lymphoma Vitamin D deficiency HTN (hypertension) Parkinson disease Family History Father Myocardial infarction Mother Uterine cancer Sister Alzheimer disease Surgical History H/O colonoscopy S/P partial hysterectomy No pertinent past surgical history Social History Household Members: None Housing: House Do you presently have visiting nurse or other home services: No Alcohol intake: current Alcohol intake frequency: does not drink Patient Tobacco Use Status: Never used Tobacco Smoked in Last 30 Days: No e-Cigarette/Vaping Use: Never Used Advance Directives: Yes Advance Directives on File: Yes Advance Directives Date on File: 02/18/23 Do you have a plan to hurt others: No Plan service: No Current occupational status: retired Cognitive needs: No Hearing needs: No Vision needs: Yes Meds Allergies Allergy/AdvReac Type Severity Reaction Status Date / Time clindamycin [CLINDAMYCIN] Allergy Severe DIARRHEA Verified 01/05/25 15:02 Penicillins [PCN] Allergy Intermediate Rash Verified 01/05/25 15:02 penicillin V Allergy Unknown Rash Verified 01/05/25 15:02 jax Allergy could not Verified 01/05/25 15:02 breath Active Medications: Current Medications Acetaminophen (Acetaminophen 325 Mg Tablet) 650 mg PO Q6H PRN PRN Reason: Pain, Mild 1-3,fever,headache Bisacodyl (Bisacodyl 5 Mg Tablet.Dr) 10 mg PO ONCE ONE Stop: 01/05/25 19:11 Calcium Carbonate (Calcium Carbonate 750 Mg Tab.Chew) 750 mg PO Q4H PRN PRN Reason: Heartburn Enoxaparin Sodium (Enoxaparin Sodium 40 Mg/0.4 Ml Syringe) 40 mg SUBCUT Q24H RAN Magnesium Hydroxide (Milk Of Magnesia 30 Ml Oral.Susp) 30 ml PO DAILY PRN PRN Reason: Constipation Melatonin (Melatonin 3 Mg Tablet) 6 mg PO BEDTIME PRN PRN Reason: Insomnia Ondansetron HCl (Ondansetron Hcl 4 Mg/2 Ml Vial) 4 mg IVPUSH Q8H PRN PRN Reason: Nausea and Vomiting Sodium Chloride (0.9 % Sodium Chloride Flush 3 Ml Syringe) 3 ml IVFLUSH QSHIFT [facility] Home Medications ?Medication ?Instructions ?Recorded ?Confirmed ?Last Taken ?Type rasagiline 0.5 mg tablet 0.5 mg PO DAILY 09/18/20 11/24/24 11/20/24 History carbidopa 25 mg-levodopa 100 mg 1 tab PO QID 02/17/24 11/24/24 11/20/24 History tablet Physical Exam Vital Signs and Narrative: Vital Signs: Last Vital Signs Temp 97.8 F 01/05/25 18:43 Pulse 99 01/05/25 18:43 Resp 16 01/05/25 18:43 BP 146/75 H 01/05/25 18:43 Pulse Ox 99 01/05/25 18:43 O2 Del Method Room Air 01/05/25 18:43 BMI result Body Mass Index 20.8 General: AOx3, no acute distress Resp: CTA bilaterally CVS: S1, S2, RRR GI: Soft, with distention and suprapubic tenderness Skin: Warm, dry Neuro: Cranial nerves II-XII grossly intact bilaterally. Motor grossly intact bilaterally. Upper extremities tremulous especially left hand. Extremities: No edema Psych: Appropriate affect Results Labs 01/05/25 15:27 01/05/25 15:27 Labs: Laboratory Results - last 24 hr 01/05/25 15:27 MCV 86.4 MCH 28.6 MCHC 33.1 RDW 13.9 Plt Count 209 MPV 10.4 Immature Gran % (Auto) 0.5 H Neut % (Auto) 65.3 Lymph % (Auto) 24.3 [place] % (Auto) 8.2 Eos % (Auto) 1.2 Baso % (Auto) 0.5 Lymph # (Auto) 2.0 [place] # (Auto) 0.7 Eos # (Auto) 0.1 Baso # (Auto) 0.0 Abs Immat Gran (auto) 0.04 H Absolute Neuts (auto) 5.4 Absolute Nucleated RBC 0.000 Nucleated RBC % (auto) 0.0 PT 10.5 L INR 0.9 Anion Gap 13 Estim Creat Clear Calc 46.0 Estimated GFR > 60 Random Glucose 98 Calcium 9.1 D Magnesium 1.8 Total Bilirubin 0.6 AST 35 H ALT 13 Alkaline Phosphatase 63 Total Protein 7.5 Albumin 4.0 Lipase 20 Assessment and Plan (1) Constipation: Status: Acute Plan Pt is an 84-year-old female with a PMH significant for?Parkinson's disease, HTN, chronic back pain, and chronic constipation who presents to the ED for evaluation of abdominal pain and?constipation. Pt will be admitted to the hospital under observation for treatment and further evaluation of severe constipation that failed outpatient therapy. Acute on chronic constipation Worsening constipation past 2-3 weeks, no significant bowel movement for past 6-[address] showing large stool ball concerning for stercoral colitis, as well as large volume fecal loading within colon We will give enema and milk of magnesia tonight Will start on lactulose 30 g in the morning if no bowel movement Consider General surgery consult if constipation persists despite treatment Discharge home on bowel regimen HTN Continue amlodipine, lisinopril Parkinson's disease Continue carbidopa/levodopa and rasagiline Full Code Attending:?Dr. Chávez DVT Prophylaxis: Lovenox Pt will be admitted to the hospital under observation for treatment and further evaluation of severe constipation that has failed outpatient therapy. Quality Stroke Does the patient have a stroke diagnosis?: No VTE Prior VTE?: No VTE Risk Level:: Medical - moderate - high VTE Device Contraindication: Treatment Not Indicated VTE Drug Contraindication: N/A - Med Ordered
[2025-01-05] MEDS: Enoxaparin Sodium 40 MG/0.4 ML SYRINGE SUBCUT (20:06)
[2025-01-05] MEDS: bisacodyL 5 MG TABLET.DR 10 MG PO (20:06)
--- NOTE | 2025-01-05 22:27 | PHA.MEDREC ---
Addendum entered by Lianne Brown RPh 01/05/25 22:57: MED REC REVIEWED BY ESPERANZA Original Note: Pharmacy Consult ? Medication Reconciliation Pharmacy has completed the medication reconciliation. Spoke with patient and she was able to confirm her medications and also has Rx bottle of Rasagiline 0.5mg tabs on hand. She confirmed she took her morning medications this morning.
[2025-01-05 23:04] VITALS: BP 138/78; PULSE 77; RESP 16; TEMP 36.4; O2SAT 95
[2025-01-05] MEDS: Docusate Sodium 100 MG CAPSULE PO (23:36)
[2025-01-05] MEDS: Carbidopa/Levodopa 25/100 TABLET 1 TAB PO (23:36)
[2025-01-06] VITALS (9 sets, daily range): BP systolic 78–133; BP diastolic 52–72; PULSE 65–94; RESP 16–18; TEMP 36.2–36.6; O2SAT 95–99
--- NOTE | 2025-01-06 00:06 | PC.NURSE ---
Patient brought medication from home Rasagiline Mesylate 0.5 mg , (51 tablets; counted in front of patient and patient's son with secondary nurse, Gely). Medication pending on JAN. Patient reports takes medication in the morning, daily. Medication placed in patient specific bin. Oncoming RN made aware, will need to notify in house pharmacy in the morning. Copy of medication storage record provided to patient.
[2025-01-06] MEDS: Melatonin 3 MG TABLET 6 MG PO (00:11)
[2025-01-06] MEDS: Acetaminophen 325 MG TABLET 650 MG PO ×2 (00:12→22:51)
[2025-01-06] MEDS: 0.9 % Sodium Chloride Flush 3 ML SYRINGE IVFLUSH ×4 (00:14→20:25)
[2025-01-06 05:47] LABS: MANUAL DIFF FLAG NO
[2025-01-06 05:53] LABS: Basophils Percent Auto 0.4 % (0-2); Eosinophils Absolute Auto 0.1 X10*3/uL (0.0-0.4); Eosinophils Percent Auto 0.8 % (0-4); Hematocrit 36.9 % (37.0-47.0); Hemoglobin 12.5 g/dl (12.0-16.0); Imm Gran Abs Auto 0.02 X10*3/uL (0.00-0.03); Imm Gran Pct Auto 0.3 % (0.0-0.4); Lymphocytes Absolute Auto 1.9 X10*3/uL (1.2-4.9); Lymphocytes Percent Auto 26.4 % (20-40); Mean Corpuscular HGB Conc 33.9 g/dl (31.0-35.0); Mean Corpuscular Hemoglobin 29.1 pg (27.0-33.0); Mean Platelet Volume 10.7 fL (9.4-12.3); Monocytes Absolute Auto 0.5 X10*3/uL (0.1-1.2); Monocytes Percent Auto 6.7 % (2-11); Neutrophils Absolute Auto 4.7 x10*3/uL (2.0-8.3); Neutrophils Percent Auto 65.4 % (45-73); Platelet Count 199 X10*3/uL (160-400); Red Blood Count 4.29 X10*6/uL (4.20-5.50); White Blood Count 7.2 X10*3/uL (4.8-10.8)
[2025-01-06 06:13] LABS: Anion Gap 12 (12-20); Blood Urea Nitrogen 18 mg/dL (9-16); Calcium 8.7 mg/dL (8.4-10.2); Carbon Dioxide 27 mmol/L (22-29); Chloride 101 mmol/L (96-108); Creatinine Clr Calc Pharmacy 48.7; Estimated Glomerular Filt Rate > 60; Glucose Random 109 mg/dL (60-115); Potassium 3.8 mmol/L (3.3-5.1); Sodium 136 mmol/L (135-145)
[2025-01-06] MEDS: Docusate Sodium 100 MG CAPSULE PO (08:37)
[2025-01-06] MEDS: lisinopriL 10 MG TABLET PO (08:38)
[2025-01-06] MEDS: Carbidopa/Levodopa 25/100 TABLET 1 TAB PO ×4 (08:38→20:24)
[2025-01-06] MEDS: hydroCHLOROthiazide 12.5 MG TABLET PO (08:40)
[2025-01-06] MEDS: amLODIPine Besylate 5 MG TABLET PO (08:40)
[2025-01-06] MEDS: RASAGILINE 0.5 MG 0.5 EACH PO (08:44)
[2025-01-06] MEDS: Lactated Ringers 500 ML 999 ML IV (11:48)
[2025-01-06] MEDS: polyethylene glycoL 3350 17 GM POWD.PACK PO (14:13)
--- NOTE | 2025-01-06 16:17 | MHC.CM.PN ---
IMM delivered. Patient lives in a home alone. Son and daughter visit daily and assist PRN. Ambulates w/ cane. Independent w/ care. PCP Radha Cramer MD HCP on file and verified. DP: Goal is home w/ PT services. [facility] is preferred. Son to transport. CM will continue to follow.
[2025-01-06] MEDS: Lactulose 20 GM/30 ML SOLUTION 30 GM PO (16:23)
--- NOTE | 2025-01-06 16:49 | P.PNIM_ITS ---
Subjective Subjective Date of Service: 01/06/25 Interval History: seen and examined this morning follow up for constipation had bm after enema last night reports improvement in abdominal pain, still with some bloating early afternoon pt reported dizziness and blood pressure checked and was low - was given fluid bolus and improved. Review of Systems Review of Systems: Yes all other systems are reviewed and are negative Constitutional Constitutional: Denies chills and Denies fever(s) Cardiovascular Cardiovascular: Denies chest pain, Denies palpitations and Denies dyspnea Respiratory Respiratory: Denies cough and Denies dyspnea Endocrine Endocrine: Denies palpitations Physical Exam 2 Vital Signs: Vital Signs: Last Vital Signs Temp 97.1 F 01/06/25 15:32 Pulse 94 01/06/25 15:32 Resp 18 01/06/25 15:32 BP 133/70 01/06/25 15:32 Pulse Ox 99 01/06/25 15:32 O2 Del Method Room Air 01/06/25 15:32 BMI result Body Mass Index 20.8 Const: General: alert and awake Nutritional Appearance: thin O rientation/consciousness: patient oriented x3 Resp: Effort & Inspection: normal respiratory effort, able to speak in complete sentences, no respiratory distress and no use of accessory muscles Cardio: Rate: regular rate GI: Other: softly distended, no guarding, no tenderness on palpation Neuro: General: patient oriented x3 Objective Data Active Medications Acetaminophen (Acetaminophen 325 Mg Tablet) 650 mg PO Q6H PRN PRN Reason: Pain, Mild 1-3,fever,headache Last Admin: 01/06/25 00:12 Dose: 325 mg Documented By: MICHELLE Amlodipine Besylate (Amlodipine Besylate 5 Mg Tablet) 5 mg PO DAILY [facility]; Protocol Last Admin: 01/06/25 08:40 Dose: 5 mg Documented By: AVIVA Calcium Carbonate (Calcium Carbonate 750 Mg Tab.Chew) 750 mg PO Q4H PRN PRN Reason: Heartburn Carbidopa/Levodopa (Carbidopa/Levodopa 25/100 Tablet) 1 tab PO QID [facility] Last Admin: 01/06/25 16:26 Dose: 1 tab Documented By: ALYSHA Docusate Sodium (Docusate Sodium 100 Mg Capsule) 100 mg PO BID [facility] Last Admin: 01/06/25 08:37 Dose: 100 mg Documented By: AVIVA Enoxaparin Sodium (Enoxaparin Sodium 40 Mg/0.4 Ml Syringe) 40 mg SUBCUT Q24H [facility] Last Admin: 01/05/25 20:06 Dose: 40 mg Documented By: JACKIE Hydrochlorothiazide (Hydrochlorothiazide 12.5 Mg Tablet) 12.5 mg PO DAILY [facility] Last Admin: 01/06/25 08:40 Dose: 12.5 mg Documented By: AVIVA Lactulose (Lactulose 20 Gm/30 Ml Solution) 30 gm PO DAILY PRN PRN Reason: Constipation Last Admin: 01/06/25 16:23 Dose: 30 gm Documented By: ALYSHA Lisinopril (Lisinopril 10 Mg Tablet) 10 mg PO DAILY [facility] Last Admin: 01/06/25 08:38 Dose: 10 mg Documented By: AVIVA Melatonin (Melatonin 3 Mg Tablet) 6 mg PO BEDTIME PRN PRN Reason: Insomnia Last Admin: 01/06/25 00:11 Dose: 6 mg Documented By: MICHELLE Patient Own ( Rasagiline 0.5 Mg Tablet) 0.5 mg PO DAILY [facility] Last Admin: 01/06/25 08:44 Dose: 0.5 mg Documented By: AVIVA Ondansetron HCl (Ondansetron Hcl 4 Mg/2 Ml Vial) 4 mg IVPUSH Q8H PRN PRN Reason: Nausea and Vomiting Polyethylene Glycol (Polyethylene Glycol 3350 17 Gm Powd.Pack) 17 gm PO BID [facility] Last Admin: 01/06/25 14:13 Dose: 17 gm Documented By: ALYSHA Sodium Chloride (0.9 % Sodium Chloride Flush 3 Ml Syringe) 3 ml IVFLUSH QSHIFT [facility] Last Admin: 01/06/25 16:24 Dose: 3 ml Documented By: ALYSHA Labs 01/06/25 05:35 01/06/25 05:35 Labs: Laboratory Results - last 24 hr 01/06/25 05:35 MCV 86.0 MCH 29.1 MCHC 33.9 RDW 14.0 Plt Count 199 MPV 10.7 Immature Gran % (Auto) 0.3 Neut % (Auto) 65.4 Lymph % (Auto) 26.4 [place] % (Auto) 6.7 Eos % (Auto) 0.8 Baso % (Auto) 0.4 Lymph # (Auto) 1.9 [place] # (Auto) 0.5 Eos # (Auto) 0.1 Baso # (Auto) 0.0 Abs Immat Gran (auto) 0.02 Absolute Neuts (auto) 4.7 Absolute Nucleated RBC 0.000 Nucleated RBC % (auto) 0.0 Anion Gap 12 Estim Creat Clear Calc 48.7 Estimated GFR > 60 Random Glucose 109 Calcium 8.7 Assessment and Plan (1) Constipation: Status: Acute Plan Pt is an 84-year-old female with a PMH significant for?Parkinson's disease, HTN, chronic back pain, and chronic constipation who presents to the ED for evaluation of abdominal pain and?constipation. Pt will be admitted to the hospital under observation for treatment and further evaluation of severe constipation that failed outpatient therapy. Acute on chronic constipation Worsening constipation past 2-3 weeks, no significant bowel movement for past 6- [address] showing large stool ball concerning for stercoral colitis, as well as large volume fecal loading within colon s/p enema with bm evening 01/06 continue colace, miralax bid, lactulose rn will hold further enema for now due to hypotenesion HTN bp dropped to 80s with associated dizziness after getting home bp meds will hold amlodipine, lisinopril/HCTZ follow bp closely hypotension due to medications no evidence of sepsis Parkinson's disease Continue carbidopa/levodopa and rasagiline Full Code DVT Prophylaxis: Lovenox Pt will be admitted to the hospital under observation for treatment and further evaluation of severe constipation that has failed outpatient therapy. Quality Stroke Does the patient have a stroke diagnosis?: No VTE Prior VTE?: No VTE Risk Level:: Medical - moderate - high VTE Device Contraindication: Treatment Not Indicated VTE Drug Contraindication: N/A - Med Ordered
[2025-01-06] MEDS: Enoxaparin Sodium 40 MG/0.4 ML SYRINGE SUBCUT (20:24)
[2025-01-07] VITALS (7 sets, daily range): BP systolic 73–147; BP diastolic 50–85; PULSE 79–94; RESP 16–18; TEMP 36.1–36.6; O2SAT 95–98
[2025-01-07] MEDS: Docusate Sodium 100 MG CAPSULE PO ×2 (08:47→20:15)
[2025-01-07] MEDS: polyethylene glycoL 3350 17 GM POWD.PACK PO ×2 (08:47→20:15)
[2025-01-07] MEDS: RASAGILINE 0.5 MG 0.5 EACH PO (08:47)
[2025-01-07] MEDS: Carbidopa/Levodopa 25/100 TABLET 1 TAB PO ×4 (08:47→20:15)
[2025-01-07] MEDS: 0.9 % Sodium Chloride Flush 3 ML SYRINGE IVFLUSH (08:48)
--- NOTE | 2025-01-07 10:33 | PC.NURSE ---
+ Ortho, MD notified. SEE vs
--- NOTE | 2025-01-07 10:53 | P.PNIM_ITS ---
Subjective Subjective Date of Service: 01/07/25 Interval History: seen and examined this morning follow up for constipation had bm after enema reports improvement in abdominal pain, still with some bloating reported dizziness again this morning Review of Systems Review of Systems: Yes all other systems are reviewed and are negative Constitutional Constitutional: Denies chills and Denies fever(s) Cardiovascular Cardiovascular: Denies chest pain, Denies palpitations and Denies dyspnea Respiratory Respiratory: Denies cough and Denies dyspnea Endocrine Endocrine: Denies palpitations Physical Exam 2 Vital Signs: Vital Signs: Last Vital Signs Temp 97.7 F 01/07/25 08:00 Pulse 83 01/07/25 10:37 Resp 16 01/07/25 08:00 BP 73/50 L 01/07/25 10:37 Pulse Ox 95 01/07/25 08:00 O2 Del Method Room Air 01/07/25 08:00 BMI result Body Mass Index 20.8 Appearing in no acute distress lung sounds are clear to auscultation heart regular rate rhythm, clear S1, S2 positive bowel sounds, abdomen is soft, nontender neuro patient is alert x3, no focal deficits Objective Data Active Medications Acetaminophen (Acetaminophen 325 Mg Tablet) 650 mg PO Q6H PRN PRN Reason: Pain, Mild 1-3,fever,headache Last Admin: 01/06/25 22:51 Dose: 650 mg Documented By: KAPIL Comments: per pt request Amlodipine Besylate (Amlodipine Besylate 5 Mg Tablet) 5 mg PO DAILY [facility]; Protocol Last Admin: 01/06/25 08:40 Dose: 5 mg Documented By: AVIVA Calcium Carbonate (Calcium Carbonate 750 Mg Tab.Chew) 750 mg PO Q4H PRN PRN Reason: Heartburn Carbidopa/Levodopa (Carbidopa/Levodopa 25/100 Tablet) 1 tab PO QID [facility] Last Admin: 01/07/25 08:47 Dose: 1 tab Documented By: BROOKLYN Docusate Sodium (Docusate Sodium 100 Mg Capsule) 100 mg PO BID [facility] Last Admin: 01/07/25 08:47 Dose: 100 mg Documented By: BROOKLYN Enoxaparin Sodium (Enoxaparin Sodium 40 Mg/0.4 Ml Syringe) 40 mg SUBCUT Q24H [facility] Last Admin: 01/06/25 20:24 Dose: 40 mg Documented By: MARTHA Hydrochlorothiazide (Hydrochlorothiazide 12.5 Mg Tablet) 12.5 mg PO DAILY [facility] Last Admin: 01/06/25 08:40 Dose: 12.5 mg Documented By: AVIVA Lactulose (Lactulose 20 Gm/30 Ml Solution) 30 gm PO DAILY PRN PRN Reason: Constipation Last Admin: 01/06/25 16:23 Dose: 30 gm Documented By: ALYSHA Lisinopril (Lisinopril 10 Mg Tablet) 10 mg PO DAILY [facility] Last Admin: 01/06/25 08:38 Dose: 10 mg Documented By: AVIVA Melatonin (Melatonin 3 Mg Tablet) 6 mg PO BEDTIME PRN PRN Reason: Insomnia Last Admin: 01/06/25 00:11 Dose: 6 mg Documented By: MICHELLE Patient Own ( Rasagiline 0.5 Mg Tablet) 0.5 mg PO DAILY [facility] Last Admin: 01/07/25 08:47 Dose: 0.5 mg Documented By: BROOKLYN Ondansetron HCl (Ondansetron Hcl 4 Mg/2 Ml Vial) 4 mg IVPUSH Q8H PRN PRN Reason: Nausea and Vomiting Polyethylene Glycol (Polyethylene Glycol 3350 17 Gm Powd.Pack) 17 gm PO BID [facility] Last Admin: 01/07/25 08:47 Dose: 17 gm Documented By: BROOKLYN Sodium Chloride (0.9 % Sodium Chloride Flush 3 Ml Syringe) 3 ml IVFLUSH QSHIFT [facility] Last Admin: 01/07/25 08:48 Dose: 3 ml Documented By: BROOKLYN Labs 01/06/25 05:35 01/06/25 05:35 Assessment and Plan (1) Constipation: Status: Acute Plan 84-year-old female with a PMH significant for?Parkinson's disease, HTN, chronic back pain, and chronic constipation who presents to the ED for evaluation of abdominal pain and?constipation. Pt will be admitted to the hospital under observation for treatment and further evaluation of severe constipation that failed outpatient therapy. Acute on chronic constipation Worsening constipation past 2-3 weeks, no significant bowel movement for past 6- [address] showing large stool ball concerning for stercoral colitis, as well as large volume fecal loading within colon s/p enema with bm evening 01/06 continue colace, miralax bid, lactulose rn will hold further enema for now due to hypotenesion HTN with orthostatic hypotension bp dropped with associated dizziness after getting home bp meds initially amlodipine, lisinopril/HCTZ held NS @ 100 started hypotension due to medications no evidence of sepsis Parkinson's disease Continue carbidopa/levodopa and rasagiline Full Code Attending Dr. Schaffer DVT Prophylaxis: Lovenox Quality Stroke Does the patient have a stroke diagnosis?: No VTE Prior VTE?: No VTE Risk Level:: Medical - moderate - high VTE Device Contraindication: Treatment Not Indicated VTE Drug Contraindication: N/A - Med Ordered
[2025-01-07] MEDS: 0.9 % Sodium Chloride 1,000 ML 100 ML IVCONT ×2 (11:29→23:12)
[2025-01-07] MEDS: Melatonin 3 MG TABLET 6 MG PO (20:15)
[2025-01-08] VITALS (7 sets, daily range): BP systolic 119–166; BP diastolic 68–90; PULSE 79–98; RESP 16–20; TEMP 36–36.6; O2SAT 95–99
[2025-01-08 03:37] LABS: Appearance Urine Clear; Color Urine Yellow; Glucose Urine UA Negative (Negative); Leukocyte Esterase Urine Negative (Negative); Nitrite Urine Negative (Negative); PH 7.5 (5.0-9.0); Urine Blood Negative (Negative); Urine Ketones Negative (Negative); Urine Protein Negative (Neg-Trace)
[2025-01-08] MEDS: polyethylene glycoL 3350 17 GM POWD.PACK PO ×2 (08:04→20:03)
[2025-01-08] MEDS: Carbidopa/Levodopa 25/100 TABLET 1 TAB PO ×4 (08:04→20:03)
[2025-01-08] MEDS: RASAGILINE 0.5 MG 0.5 EACH PO (08:04)
[2025-01-08] MEDS: 0.9 % Sodium Chloride 1,000 ML 100 ML IVCONT (08:04)
[2025-01-08] MEDS: Docusate Sodium 100 MG CAPSULE PO ×2 (08:04→20:03)
--- NOTE | 2025-01-08 12:14 | P.PNIM_ITS ---
Subjective Subjective Date of Service: 01/08/25 Interval History: seen and examined this morning follow up for constipation had bm after enema reports improvement in abdominal pain Less dizziness today Review of Systems Review of Systems: Yes all other systems are reviewed and are negative Constitutional Constitutional: Denies chills and Denies fever(s) Cardiovascular Cardiovascular: Denies chest pain, Denies palpitations and Denies dyspnea Respiratory Respiratory: Denies cough and Denies dyspnea Endocrine Endocrine: Denies palpitations Physical Exam 2 Vital Signs: Vital Signs: Last Vital Signs Temp 96.8 F 01/08/25 07:23 Pulse 85 01/08/25 09:02 Resp 16 01/08/25 07:23 BP 119/71 01/08/25 09:02 Pulse Ox 96 01/08/25 07:23 O2 Del Method Room Air 01/08/25 07:23 BMI result Body Mass Index 20.8 Appearing in no acute distress lung sounds are clear to auscultation heart regular rate rhythm, clear S1, S2 positive bowel sounds, abdomen is soft, nontender neuro patient is alert x3, no focal deficits Objective Data Active Medications Acetaminophen (Acetaminophen 325 Mg Tablet) 650 mg PO Q6H PRN PRN Reason: Pain, Mild 1-3,fever,headache Last Admin: 01/06/25 22:51 Dose: 650 mg Documented By: KAPIL Comments: per pt request Amlodipine Besylate (Amlodipine Besylate 5 Mg Tablet) 5 mg PO DAILY [facility]; Protocol Last Admin: 01/06/25 08:40 Dose: 5 mg Documented By: AVIVA Calcium Carbonate (Calcium Carbonate 750 Mg Tab.Chew) 750 mg PO Q4H PRN PRN Reason: Heartburn Carbidopa/Levodopa (Carbidopa/Levodopa 25/100 Tablet) 1 tab PO QID [facility] Last Admin: 01/08/25 08:04 Dose: 1 tab Documented By: BROOKLYN Docusate Sodium (Docusate Sodium 100 Mg Capsule) 100 mg PO BID [facility] Last Admin: 01/08/25 08:04 Dose: 100 mg Documented By: BROOKLYN Enoxaparin Sodium (Enoxaparin Sodium 40 Mg/0.4 Ml Syringe) 40 mg SUBCUT Q24H [facility] Last Admin: 01/07/25 20:46 Dose: Not Given Documented By: MUSTAPHA Non-Admin Reason: Patient Refused Hydrochlorothiazide (Hydrochlorothiazide 12.5 Mg Tablet) 12.5 mg PO DAILY [facility] Last Admin: 01/06/25 08:40 Dose: 12.5 mg Documented By: AVIVA Lactulose (Lactulose 20 Gm/30 Ml Solution) 30 gm PO DAILY PRN PRN Reason: Constipation Last Admin: 01/06/25 16:23 Dose: 30 gm Documented By: ALYSHA Lisinopril (Lisinopril 10 Mg Tablet) 10 mg PO DAILY [facility] Last Admin: 01/06/25 08:38 Dose: 10 mg Documented By: AVIVA Melatonin (Melatonin 3 Mg Tablet) 6 mg PO BEDTIME PRN PRN Reason: Insomnia Last Admin: 01/07/25 20:15 Dose: 6 mg Documented By: MUSTAPHA Patient Own ( Rasagiline 0.5 Mg Tablet) 0.5 mg PO DAILY [facility] Last Admin: 01/08/25 08:04 Dose: 0.5 mg Documented By: BROOKLYN Ondansetron HCl (Ondansetron Hcl 4 Mg/2 Ml Vial) 4 mg IVPUSH Q8H PRN PRN Reason: Nausea and Vomiting Polyethylene Glycol (Polyethylene Glycol 3350 17 Gm Powd.Pack) 17 gm PO BID [facility] Last Admin: 01/08/25 08:04 Dose: 17 gm Documented By: BROOKLYN Sodium Chloride (0.9 % Sodium Chloride Flush 3 Ml Syringe) 3 ml IVFLUSH QSHIFT [facility] Last Admin: 01/08/25 06:37 Dose: Not Given Documented By: BROOKLYN Non-Admin Reason: IV Running Labs 01/06/25 05:35 01/06/25 05:35 Labs: Laboratory Results - last 24 hr 01/08/25 03:10 Urine Color Yellow Urine Appearance Clear Urine pH 7.5 Ur Specific [place] 1.010 Urine Protein Negative Urine Glucose (UA) Negative Urine Ketones Negative Urine Blood Negative Urine Nitrite Negative Ur Leukocyte Esterase Negative Assessment and Plan (1) Constipation: Status: Acute Plan 84-year-old female with a PMH significant for?Parkinson's disease, HTN, chronic back pain, and chronic constipation who presents to the ED for evaluation of abdominal pain and?constipation. Pt will be admitted to the hospital under observation for treatment and further evaluation of severe constipation that failed outpatient therapy. Acute on chronic constipation. Improved Worsening constipation past 2-3 weeks, no significant bowel movement for past 6- [address] showing large stool ball concerning for stercoral colitis, as well as large volume fecal loading within colon s/p enema with bm evening 01/06 continue colace, miralax bid, lactulose rn HTN with orthostatic hypotension. Mild amlodipine, lisinopril/HCTZ held s/p NS @ 100 ambulate hypotension. resolved due to medications no evidence of sepsis Parkinson's disease Continue carbidopa/levodopa and rasagiline Full Code Attending Dr. Schaffer DVT Prophylaxis: Lovenox Quality Stroke Does the patient have a stroke diagnosis?: No VTE Prior VTE?: No VTE Risk Level:: Medical - moderate - high VTE Device Contraindication: Treatment Not Indicated VTE Drug Contraindication: N/A - Med Ordered
[2025-01-08] MEDS: 0.9 % Sodium Chloride Flush 3 ML SYRINGE IVFLUSH (20:03)
[2025-01-09 02:49] VITALS: BP 150/71; PULSE 61; RESP 18; TEMP 36.1; O2SAT 99
[2025-01-09] MEDS: RASAGILINE 0.5 MG 0.5 EACH PO (07:33)
[2025-01-09] MEDS: Carbidopa/Levodopa 25/100 TABLET 1 TAB PO (07:33)
[2025-01-09] MEDS: Docusate Sodium 100 MG CAPSULE PO (07:33)
[2025-01-09] MEDS: polyethylene glycoL 3350 17 GM POWD.PACK PO (07:34)
[2025-01-09] MEDS: 0.9 % Sodium Chloride Flush 3 ML SYRINGE IVFLUSH (07:34)
--- NOTE | 2025-01-09 07:50 | PM.DS ---
DS: Providers Provider Date of Service: 01/09/25 Date of admission: 01/06/25 13:07 Date of discharge: 01/09/25 Primary care physician: Radha Cramer MD DS: Diagnosis Discharge Diagnosis (1) Constipation: Status: Acute DS: Summary Hospital Course Hospital Course: History and physical as per admitting provider. Pt is an 84-year-old female with a PMH significant for?Parkinson's disease, HTN, chronic back pain, and chronic constipation who presents to the ED for evaluation of abdominal pain and?constipation. Pt reports has been experiencing severe constipation for the past 6-7 days, though pt notes has not had consistent bowel movements for at least the past 2-3 weeks. Complains of intermittent ?spasms? and lower abdominal and rectal pain. Has had intermittent small amounts of liquid diarrhea including brief episode today. Has overall felt bloated, weak, and had difficulty sleeping. Denies nausea or vomiting. Pt with a long hx of chronic constipation going back many decades. Has been on various different bowel regimens in the past and attempted to watch her diet, though overall to little effect. Has had multiple presentations to the ED in the past for similar symptoms. No chest pain/pressure, palpitations. Denies fever, chills. No SOB or difficulty breathing. In the ED pt was tachycardic up to 110 and hypertensive up to 146/75. Labs were grossly unremarkable and around baseline for pt. No leukocytosis. Stable H&H. No significant electrolyte abnormalities. Renal and hepatic function baseline. Lipase WNL. CT?of abdomen and pelvis found large stool ball within rectum with rectal wall thickening concerning for stercoral colitis. Also found large volume of fecal loading within colon. Pt will be admitted to the hospital under observation for treatment and further evaluation of severe constipation that failed outpatient therapy. Acute on chronic constipation. Improved, Worsening constipation past 2-3 weeks, no significant bowel movement for 6-[address] showing large stool ball concerning for stercoral colitis, as well as large volume fecal loading within colon, s/p enema with bm evening 01/06. repeat imaging showed less stool burden. Patient will need to be on daily laxatives to keep regular BM schedule. HTN with orthostatic hypotension. Mild, amlodipine, lisinopril/HCTZ held initially . treated with IV fluids and ambulation Parkinson's disease. Continue carbidopa/levodopa and rasagiline Time Attestation Discharge Coordination Time (in mins): 42 Quality: Safe Use of Opioids Does Pt have an Active Cancer Diagnosis on the Problem List?: No Quality: Stroke Does the patient have a stroke diagnosis?: No Physical Exam Vital Signs: Vital Signs: Last Vital Signs Temp 97 F 01/09/25 02:49 Pulse 61 01/09/25 02:49 Resp 18 01/09/25 02:49 BP 150/71 H 01/09/25 02:49 Pulse Ox 99 01/09/25 02:49 O2 Del Method Room Air 01/09/25 02:49 BMI result Body Mass Index 20.8 Appearing in no acute distress head is normocephalic atraumatic eyes pupils are PERRLA sclera is anicteric mouth throat mucous membranes are intact and moist neck is supple no lymphadenopathy, no JVD noted lung sounds are clear to auscultation heart regular rate rhythm, clear S1, S2 positive bowel sounds, abdomen is soft, nontender neuro patient is alert x3, no focal deficits Discharge Plan Discharge Anticipated Discharge Date/Time: 01/09/25 07:53 Patient Disposition: Home Health Service Discharge Diagnosis: Acute on chronic constipation Hypertension Orthostatic hypotension Referrals: [facility] [Other] - 1 Week Radha Craemr MD [Primary Care Provider] - 1 Week Discharge Medications: New polyethylene glycol 3350 [Miralax] 17 gram/dose powder 17 g PO DAILY Qty: 119 0RF docusate sodium [Colace] 100 mg capsule 100 mg PO DAILY Qty: 30 0RF Continued amlodipine 5 mg tablet 5 mg PO DAILY Qty: 90 3RF lisinopril-hydrochlorothiazide 10-12.5 mg tablet 1 tab PO DAILY Qty: 90 3RF rasagiline 0.5 mg tablet 0.5 mg PO DAILY carbidopa-levodopa 25-100 mg tablet 1 tab PO QID Discharge Orders: Discharge Order (Routine); Ordered 01/09/25 Ordered By: Marivel Pina Diet: Advance to usual diet Activity on Discharge: As tolerated Stand Alone Forms: Patient Portal Discharge page Print Language: [place] Care Plan Goals: Use laxative daily to keep bowel movement patterns regular laxatives that may help: senokot, milk of magnesia, magnesium citrate, bisacodyl oral and or suppositories, fleets enema Drink plenty of fluids eat plenty of fruits and vegetables Health Concerns: Acute on chronic constipation Hypertension Orthostatic hypotension Plan of Treatment: Follow up with primary care provider as needed Take all medications as prescribed Assessment: See discharge summary
[2025-01-09 08:14] VITALS: BP 187/94; PULSE 88; RESP 18; TEMP 36.1; O2SAT 97
[2025-01-09 08:34] VITALS: BP 151/80; BP 152/87; BP 171/98; PULSE 76; PULSE 81
--- NOTE | 2025-01-09 09:07 | MHC.CM.PN ---
pt dcd today with [facility]
--- NOTE | 2025-01-09 09:12 | W.MHC.F2F ---
Service Date Service Date: 01/09/25 Encounter Date of encounter: 01/09/25 Reasons for Services Signs and symptoms assessed: Constipation orthostatic hypotension Reason for residential: CV/CP assess and/or care Reason for physical therapy: home safety and mobility Homebound: Leaving the home is medically contraindicated at this time without the asist of a device and/or another person due th the listed conditions above and below. Reason homebound: unsteady gait / fall risk and weakness related to hospital stay Certification: Based on the above findings, I certify that this patient is confined to the home and needs intermittent residential care, physical therapy and/or speech therapy, or continues to need occupational therapy. The patient is under my care, and I have initiated the establishment of the plan of care. The patient will be followed by a physician who will periodically review the plan of care. Time Spent With Patient Time: Total time managing care of this patient today ____ minutes.
[2025-01-09] MEDS: lisinopriL 10 MG TABLET PO (09:17)
[2025-01-09 11:16] VITALS: BP 123/73; PULSE 78; RESP 18; TEMP 36.3; O2SAT 99
== END 2025-01-09 11:48 | disposition home health service (06) | DRG 392 ==
LOC: HO.ED 16:59 → HO.EDOVER 19:12 → HO.S3 20:41
PROVIDERS: Registered Nurse Emergency; Admitting Provider Student in an Organized Health Care Education/Training Program; Emergency Provider Emergency Medicine Emergency Medical Services; PCP Internal Medicine; Visit Provider Nurse Practitioner Acute Care
DX: K52.89 Other specified noninfective gastroenteritis and colitis (principal); K59.09 Other constipation; I10 Essential (primary) hypertension; G20.A1 Parkinson's disease without dyskinesia, without mention of fluctuations; I95.1 Orthostatic hypotension; Z79.899 Other long term (current) drug therapy
CPT/HCPCS: 36415; 74018; 74177; 80048; 80053; 81003; 83690; 83735; 85025; 85610; 99221; 99285; J1650; J7120; Q9967

== ENCOUNTER → 2025-01-05 15:10 | Outpatient (BNV) | payer MEDICARE, SELFPAY | PROVIDERS: Admitting Provider Student in an Organized Health Care Education/Training Program; Emergency Provider Emergency Medicine Emergency Medical Services; PCP Internal Medicine; Visit Provider Radiology Diagnostic Radiology | DX: R10.9 Unspecified abdominal pain (principal) | CPT/HCPCS: 74177 ==

== ENCOUNTER → 2025-01-05 19:08 | Outpatient (BNV) | payer MEDICARE, SELFPAY | PROVIDERS: Admitting Provider Student in an Organized Health Care Education/Training Program; Emergency Provider Emergency Medicine Emergency Medical Services; PCP Internal Medicine; Visit Provider Student in an Organized Health Care Education/Training Program | DX: K59.00 Constipation, unspecified (principal) | CPT/HCPCS: 99222; 99232; 99239; G0180 ==

== ENCOUNTER 2025-01-06 13:07 | Outpatient (BNV) | payer MEDICARE, SELFPAY | END 2025-01-07 11:20 | PROVIDERS: Admitting Provider Student in an Organized Health Care Education/Training Program; Emergency Provider Emergency Medicine Emergency Medical Services; PCP Internal Medicine; Visit Provider Radiology Vascular & Interventional Radiology | DX: R10.9 Unspecified abdominal pain (principal) | CPT/HCPCS: 74018 ==

== ENCOUNTER 2025-02-06 10:57 | Outpatient (AMB) | payer MEDICARE, SELFPAY ==
--- NOTE | 2025-02-06 11:01 | A.OFFPC_ITS ---
Vital Signs 02/06/25 11:11 Height 5 ft 2 in Weight 115 lb BMI 21.0 BP 124/76 Blood Pressure Location Lt brachial Position Sitting Respiration 20 Pulse 115 H Pulse Source Pulse Oximeter Temp 98.0 F Temp Source Oral Pulse Oximetry (%) 98 Oxygen Delivery Method Room Air Intake Visit Reasons: ED-F/u Intake Note: Pt is here today for ER follow up visit. Allergies clindamycin [CLINDAMYCIN] Allergy (Severe, Verified 02/06/25 11:12) DIARRHEA Penicillins [PCN] Allergy (Intermediate, Verified 02/06/25 11:12) Rash penicillin V Allergy (Unknown, Verified 02/06/25 11:12) Rash jax Allergy (Verified 02/06/25 11:12) could not breath Medication List - Last Reconciled 02/06/25 by Radha Cramer MD amlodipine 5 mg PO DAILY carbidopa-levodopa 25-100 mg 1 tab PO QID docusate sodium (Colace) 100 mg PO DAILY lisinopril-hydrochlorothiazide 10-12.5 mg 1 tab PO DAILY polyethylene glycol 3350 (Miralax) 17 grams PO DAILY rasagiline 0.5 mg PO DAILY Tobacco use date assessed: 02/06/25 Fall risk assessment: No Falls in past year Last assessed Fall Risk: 02/06/25 Dental Screening Dental Screen Date: 02/06/25 Did you have a dental visit in the last 12 months?: Yes Did you have a dental problem in the last 6 months where you did not have access to dental care?: No Was dental information given to patient?: Patient has dentist HPI ED-F/u HPI Details Patient presents for a follow-up visit to ED for chronic constipation. She has been taking milk of magnesia as needed which has been causing diarrhea. Patient tried Colace without significant relief. She denies hematochezia melena abdominal pain. She has very limited physical activity due to worsening of gait secondary to Parkinson's disease. Patient declined having colonoscopy and agreed today to have Cologuard checked. Hypertension is controlled on current medications [facility] Medical History Sepsis Acute dehydration Nausea vomiting and diarrhea Hypotension Enterocolitis Lymphoma Vitamin D deficiency HTN (hypertension) Parkinson disease Surgical History H/O colonoscopy S/P partial hysterectomy No pertinent past surgical history Family History Father Myocardial infarction Mother Uterine cancer Sister Alzheimer disease Social History Household Members: Other Household Members Other:: self Housing: House Do you presently have visiting nurse or other home services: No Alcohol intake: current Alcohol intake frequency: does not drink Patient Tobacco Use Status: Never used Tobacco e-Cigarette/Vaping Use: Never Used Advance Directives Date on File: 02/18/23 service: No Current occupational status: retired Cognitive needs: No Hearing needs: No Vision needs: Yes Questionnaire PHQ-9 Over the last 2 weeks, how often have you been bothered by any of the following problems? 1. Little interest or pleasure in doing things: not at all 2. Feeling down, depressed, or hopeless: not at all 3. Trouble falling or staying asleep, or sleeping too much: not at all 4. Feeling tired or having little energy: not at all 5. Poor appetite or overeating: not at all 6. Feeling bad about yourself - or that you are a failure or have let yourself or your family down: not at all 7. Trouble concentrating on things, such as reading the newspaper or watching television: not at all 8. Moving or speaking so slowly that other people could have noticed. Or the opposite - being so fidgety or restless that you have been moving around a lot more than usual: not at all 9. Thoughts that you would be better off or of hurting yourself in some way: not at all Total score: 0 Depression Screening Interpretation: Negative Depression Screening Done: Yes 09019 - PHQ-9 Billing: Yes Source: Developed by Drs. Lázaro Powell, Maribell De Paz, Travis Lundy and colleagues, with an educational zoë from [email or web address]. Thrive Questionnaire Date Thrive assessed: 02/06/25 I am a: Patient What is your living situation today?: I choose not to answer this question Within the past 12 months, did the food you bought not last and you didn't have the money to get more?: I choose not to answer this question Within the past 12 months, did you worry whether your food would run out before you got money to buy more?: I choose not to answer this question Do you have trouble paying for medicines?: I choose not to answer this question Do you have trouble getting transportation to medical appointments?: I choose not to answer this question Do you have trouble paying your heating and electricity bill?: I choose not to answer this question Do you have trouble taking care of your child, family member or friend?: I choose not to answer this question Do you have trouble with day-to-day activities such as bathing, preparing meals, shopping, managing finances, etc.?: I choose not to answer this question Are you interested in more education?: I choose not to answer this question Please select the resources that you would like help with: None Currently or been in a relationship where the following occur: I choose not to answer THRIVE Score: 0 AUDIT C Alcohol Use Questionnaire (AUDIT-C) 1. How often do you have a drink containing alcohol?: Never 3. How often do you have six or more drinks on one occasion?: Never Total Score: 0 ORION-7 AMB Questionnaire ORION-7 Date ORION - 7 assessed: 02/06/25 Feeling nervous, anxious, or on edge: 0 = Not at all Not being able to stop or control worryin = Not at all Worrying too much about different things: 0 = Not at all Trouble relaxin = Not at all Being so restless that it is hard to sit still: 0 = Not at all Becoming easily annoyed or irritable: 0 = Not at all Feeling afraid as if something awful might happen: 0 = Not at all Total ORION-7 score (0-4 normal; 5-9 mild; 10-14 moderate; 15-21 severe): 0 Source: Developed by Drs. Lázaro Powell, Maribell De Paz, Travis Lundy and colleagues, with an educational zoë from [email or web address]. ORION-7 Assessment Billing ORION-7 Assessment Tool: ORION-7 Assessment 26264 Review of Systems Const All systems reviewed & are unremarkable except as noted in HPI and below ENT Reports no additional complaints Card Reports no additional complaints Resp Reports no additional complaints GI Reports no additional complaints Reports no additional complaints Physical exam (Primary Care) Vital Signs: Last Vital Signs Temp 98.0 F 03/17/25 11:11 Pulse 115 H 02/06/25 11:11 Resp 20 02/06/25 11:11 BP 124/76 02/06/25 11:11 Pulse Ox 98 02/06/25 11:11 Oxygen Delivery Method Room Air 02/06/25 11:11 BMI result Body Mass Index 21.0 Tobacco/Smoking Status: Tobacco use Status Tobacco use date assessed 02/06/25 02/06/25 11:03 Patient Tobacco Use Status Never used Tobacco 02/06/25 11:03 e-Cigarette/Vaping Use Never Used 02/06/25 11:03 PHQ-9: PHQ-9 Score PHQ-9: Total score 0 02/06/25 11:03 Depression Screening Interpretation: Negative Thrive Assessment: Date of Thrive Assessment Date Thrive assessed 02/06/25 02/06/25 11:03 Currently or been in a relationship where the following occur: I choose not to answer Const General: no acute distress Eyes General: appearance normal, both eyes and all related structures Resp Effort & Inspection: normal respiratory effort Auscultation: clear to auscultation bilaterally Cardio Rhythm: regular rhythm Heart sounds: S1 normal heart sound present and S2 normal heart sound present GI Inspection: Yes normal to inspection Palpation (GI): Soft to palpation Percussion: Yes normal to percussion Auscultation: normal bowel sounds Coding Level of Care Code Est Pt Level 4 (82744) Diagnoses HTN (hypertension) 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 Parkinson disease G20 Chronic constipation K59.09 Additional Codes ORION-7 Assessment Billing - ORION-7 Assessment Tool: ORION-7 Assessment 86912 ([id number]) PHQ-9 - 94287 - PHQ-9 Billing: Yes ([id number]) Assessment & Plan Assessment & Plan (1) HTN (hypertension): Code(s): I10 - Essential (primary) hypertension Category: Medical Plan: Continue current medications (2) 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 Cramer Code(s): G20 - Parkinson's disease Category: Medical Plan: Continue current medications follow-up with Neurology (4) Chronic constipation: Code(s): K59.09 - Other constipation Category: Medical Plan: Bowel movement regimen discussed with the patient. She was advised to take MiraLax daily and add Colace as needed. She was advised to avoid strong laxatives to prevent worsening of her chronic constipation. Patient refused to have a colonoscopy. Cologuard will be sent Orders: Orders Comprehensive Met. Panel Today I10 - Essential (primary) hypertension Complete Blood Count Auto Diff Today I10 - Essential (primary) hypertension Referrals Cologuard Test Z12.11 - Encounter for screening for malignant neoplasm of colon, Z12.12 - Encounter for screening for malignant neoplasm of rectum
[2025-02-06 11:11] VITALS: BP 124/76; PULSE 115; RESP 20; TEMP 36.7; O2SAT 98; BMI 21.0
== END 2025-02-06 12:54 | disposition home or self-care (01) ==
LOC: HO.HMCC 10:58
PROVIDERS: PCP Internal Medicine; Visit Provider Internal Medicine
DX: I10 Essential (primary) hypertension (principal); C82.99 Follicular lymphoma, unspecified, extranodal and solid organ sites; G20.C Parkinsonism, unspecified; K59.09 Other constipation

== ENCOUNTER → 2025-02-06 10:57 | Outpatient (BNVA) | payer MEDICARE, SELFPAY | PROVIDERS: PCP Internal Medicine; Visit Provider Internal Medicine | DX: I10 Essential (primary) hypertension (principal); C82.99 Follicular lymphoma, unspecified, extranodal and solid organ sites; K59.09 Other constipation; G20.C Parkinsonism, unspecified | CPT/HCPCS: 96127; 99212 ==

== ENCOUNTER 2025-02-16 13:04 | Emergency (ER) | payer MEDICARE, SELFPAY ==
--- NOTE | ~2025-02-16 | CT_ITS ---
CLINICAL HISTORY: pain, SBO? CT abdomen and pelvis with contrast Comparison: 01/05/2025 Findings: The lung bases are clear. There is a sliding-type hiatal hernia. Unremarkable gallbladder and solid organs. No urolithiasis. No bowel obstruction, pneumoperitoneum, or pneumatosis. There is a feces distended rectum. Correlate for impaction. Pelvic contents unremarkable. The appendix is not visualized with no imaging evidence of appendicitis. No acute fracture. IMPRESSION: Feces distended rectum. Correlate clinically for impaction This document has been electronically signed by: Jonh Barker MD on 02/16/2025 20:45:12
--- NOTE | 2025-02-16 13:15 | ED_ITS ---
HPI - General Adult General Chief complaint: Abdominal Pain Stated complaint: not able to use bathroom, nausea Time Seen by Provider: 02/16/25 16:47 Source: patient and family Limitations: no limitations History of Present Illness ED Provider: Nurys PRICE HPI narrative: 84-year-old female with a history of Parkinson's disease, HTN and constipation, presents with the abdominal pain times 3-4 days. Patient was recently admitted secondary to her significant constipation, her symptoms seemed to resolve with various remedies, but then they returned. she was passing soft stool, which resolved, she now has not had a bowel movement in 3-4 days. associated nausea at times. No abdominal distention, no inability to pass flatus. No fever. Related Data Home Medications ?Medication ?Instructions ?Recorded ?Confirmed rasagiline 0.5 mg tablet 0.5 mg PO DAILY 09/18/20 02/06/25 carbidopa 25 mg-levodopa 100 mg 1 tab PO QID 02/17/24 02/06/25 tablet Previous Rx's ?Medication ?Instructions ?Recorded amlodipine 5 mg tablet 5 mg PO DAILY #90 tabs 05/25/24 lisinopril 10 1 tab PO DAILY #90 tabs 06/03/24 mg-hydrochlorothiazide 12.5 mg tablet docusate sodium 100 mg capsule 100 mg PO DAILY #30 caps 01/09/25 (Colace) polyethylene glycol 3350 17 17 g PO DAILY #119 grams 01/09/25 gram/dose oral powder (Miralax) Allergies Allergy/AdvReac Type Severity Reaction Status Date / Time clindamycin [CLINDAMYCIN] Allergy Severe DIARRHEA Verified 02/16/25 13:24 Penicillins [PCN] Allergy Intermediate Rash Verified 02/16/25 13:24 penicillin V Allergy Unknown Rash Verified 02/16/25 13:24 jax Allergy could not Verified 02/16/25 13:24 breath Review of Systems 2 Review of Systems: Yes all other systems are reviewed and are negative Constitutional: Constitutional: Denies fatigue and Denies fever(s) Cardiovascular: Cardiovascular: Denies chest pain and Denies dyspnea Respiratory: Respiratory: Denies dyspnea Gastrointestinal: Gastrointestinal: Reports abdominal pain, Reports constipation, Reports nausea and Denies vomiting Endocrine: Endocrine: Denies fatigue PMFSH Past Medical History Attestation statement: The following information was validated with the patient. Medical History Sepsis Acute dehydration Nausea vomiting and diarrhea Hypotension Enterocolitis Lymphoma Vitamin D deficiency HTN (hypertension) Parkinson disease Surgical History H/O colonoscopy S/P partial hysterectomy No pertinent past surgical history Family History Family History Father Myocardial infarction Mother Uterine cancer Sister Alzheimer disease Social History Social History Household Members: Other Household Members Other:: self Housing: House Do you presently have visiting nurse or other home services: No Alcohol intake: current Alcohol intake frequency: does not drink Patient Tobacco Use Status: Never used Tobacco Smoked in Last 30 Days: No e-Cigarette/Vaping Use: Never Used Use of substances other than those prescribed or required for medical reasons: No Advance Directives: Yes Advance Directives on File: Yes Advance Directives Date on File: 02/18/23 Do you have a plan to hurt others: No Plan service: No Current occupational status: retired Cognitive needs: No Hearing needs: No Vision needs: Yes Physical Exam ED Vital Signs: Vital Signs - 24 hr 02/16/25 13:18 02/16/25 19:17 02/16/25 23:32 Temperature 98.6 F 98.0 F 97.7 F Pulse Rate 109 H 71 92 Respiratory Rate 20 16 16 Blood Pressure 125/76 164/69 H 142/78 H Pulse Oximetry 95 98 98 Oxygen Delivery Method Room Air Room Air Room Air BMI result Body Mass Index 21.3 Const Other: Alert Orientation/consciousness: patient oriented x3 Resp Effort & Inspection: normal respiratory effort Cardio Other: normal peripheral perfusion GI Other: abdomen is soft, nondistended, mild generalized tenderness to palpation but no guarding Skin Other: warm dry no rash Neuro Other: resting tremor General: patient oriented x3, no focal motor deficits and CN's II-XI intact bilaterally Psych Other: cooperative Course Course Course Narrative: This is a rapid medical exam performed by Ayaka Rider NP: Additional HPI, ROS, PE not included below will be deferred to primary provider. Patient is an 84-year-old female presenting with complaint of nausea, diarrhea. Complains of mid abdominal pain. Reports straining to have bowel movement, is unable to go, then when she stands up she gets diarrhea. Denies vomiting, states something block it coming out like an obstruction. Symptoms have been ongoing, seen here for same in the past. Plan: labs, ua, viral panel Medications Administered Discontinued Medications Generic Name Dose Route Start Last Admin Trade Name Christophe PRN Reason Stop Dose Admin Diatrizoate Meglum/Diatrizoate Sod 30 ml 02/16/25 19:36 02/16/25 19:36 Diatrizoate Meglumine, Sodium 30 Ml Solution PO 02/16/25 19:37 30 ml ONCE ONE Administration Sodium Chloride 1,000 mls @ 999 mls/hr 02/16/25 17:15 02/16/25 18:41 Ns IV 02/16/25 18:15 Infused .Q1H1M RAN Infusion Iohexol 100 ml 02/16/25 19:35 02/16/25 19:36 Iohexol 350 Mg/Ml 100 Ml Infus..Btl IV 02/16/25 19:36 85 ml ONCE ONE Administration Medical Decision Making Medical Decision Making [facility] Narrative: 84-year-old female with a history of Parkinson's disease, HTN and constipation, presents with the abdominal pain times 3-4 days. Patient was recently admitted secondary to her significant constipation, her symptoms seemed to resolve with various remedies, but then they returned. she was passing soft stool, which resolved, she now has not had a bowel movement in 3-4 days. associated nausea at times. No abdominal distention, no inability to pass flatus. No fever. Problem: Parkinson's and constipation History: Per patient I have considered the following differential diagnoses: Bowel obstruction, constipation, obstipation, fecal impaction Plan: Screening labs in process, we will be obtaining a CT scan with oral contrast. Likely not a bowel obstruction, she is not distended, she is still passing flatus. She is asymptomatic at this time does not require any medication, we will give IV fluid. I have independently reviewed following tests: Labs: No leukocytosis, not anemic, no electrolyte abnormality, viral panel negative, urine not collected CT abdomen and pelvis:Findings: The lung bases are clear. There is a sliding-type hiatal hernia. Unremarkable gallbladder and solid organs. No urolithiasis. No bowel obstruction, pneumoperitoneum, or pneumatosis. There is a feces distended rectum. Correlate for impaction. Pelvic contents unremarkable. The appendix is not visualized with no imaging evidence of appendicitis. No acute fracture. IMPRESSION: Feces distended rectum. Correlate clinically for impaction Lab Data 02/16/25 13:26 02/16/25 13:26 Labs: Lab Results 02/16/25 02/16/25 Range/Units 13:26 20:03 WBC 8.1 (4.8-10.8) X10*3/uL RBC 4.60 (4.20-5.50) X10*6/uL Hgb 13.4 (12.0-16.0) g/dl Hct 39.7 (37.0-47.0) % MCV 86.3 (80.0-98.0) fL MCH 29.1 (27.0-33.0) pg MCHC 33.8 (31.0-35.0) g/dl RDW 13.2 (11.0-16.0) % Plt Count 267 D (160-400) X10*3/uL MPV 10.0 (9.4-12.3) fL Immature Gran % (Auto) 0.4 (0.0-0.4) % Neut % (Auto) 62.8 (45-73) % Lymph % (Auto) 29.5 (20-40) % [place] % (Auto) 6.2 (2-11) % Eos % (Auto) 0.7 (0-4) % Baso % (Auto) 0.4 (0-2) % Lymph # (Auto) 2.4 (1.2-4.9) X10*3/uL [place] # (Auto) 0.5 (0.1-1.2) X10*3/uL Eos # (Auto) 0.1 (0.0-0.4) X10*3/uL Baso # (Auto) 0.0 (0.0-0.2) X10*3/uL Abs Immat Gran (auto) 0.03 (0.00-0.03) X10*3/uL Absolute Neuts (auto) 5.1 (2.0-8.3) x10*3/uL Absolute Nucleated RBC 0.000 (0.0-0.012) X10*3/uL Nucleated RBC % (auto) 0.0 (0.0-0.2) /100WBC Sodium 141 (135-145) mmol/L Potassium 3.9 (3.3-5.1) mmol/L Chloride 104 (96-108) mmol/L Carbon Dioxide 29 (22-29) mmol/L Anion Gap 12 (12-20) BUN 26 H (9-16) mg/dL Creatinine 0.76 (0.5-1.4) mg/dL Estim Creat Clear Calc 45.6 Estimated GFR > 60 Random Glucose 120 H (60-115) mg/dL Calcium 9.6 D (8.4-10.2) mg/dL Total Bilirubin 0.5 (0.0-1.0) mg/dL AST 24 (5-31) U/L ALT 14 (0-31) U/L Alkaline Phosphatase 69 (39-117) U/L Total Protein 7.2 (6.5-8.0) g/dL Albumin 4.1 (3.5-5.0) g/dL Urine Color Yellow Urine Appearance Clear Urine pH 7.5 (5.0-9.0) Ur Specific [place] <= 1.005 (1.005-1.025) Urine Protein Negative (Neg-Trace) mg/dL Urine Glucose (UA) Negative (Negative) mg/dL Urine Ketones Negative (Negative) mg/dL Urine Blood Negative (Negative) Urine Nitrite Negative (Negative) Ur Leukocyte Esterase Negative (Negative) Influenza Type A (PCR) NEGATIVE (Negative) Influenza Type B (PCR) NEGATIVE (Negative) RSV RNA Qual (PCR) NEGATIVE (Negative) SARS-CoV-2 RNA (RT-PCR) NEGATIVE (Negative) Discharge Plan Discharge Clinical Impression: Constipation Patient Disposition: Home, Self-Care Instructions: Constipation (ED) Additional Instructions: All of your labs were normal, you were found to be constipated. You had a fecal impaction that was evacuated. You need to get aggressive with your bowel regimen. I recommend that you take Colace twice a day. I recommend that you take MiraLax several times a day, up to 4 times a day perhaps, until you begin having regular bowel movements. Be sure to follow up with your primary care provider. Prescriptions: No Action amlodipine 5 mg tablet 5 mg PO DAILY Qty: 90 3RF lisinopril-hydrochlorothiazide 10-12.5 mg tablet 1 tab PO DAILY Qty: 90 3RF polyethylene glycol 3350 [Miralax] 17 gram/dose powder 17 g PO DAILY Qty: 119 0RF docusate sodium [Colace] 100 mg capsule 100 mg PO DAILY Qty: 30 0RF rasagiline 0.5 mg tablet 0.5 mg PO DAILY carbidopa-levodopa 25-100 mg tablet 1 tab PO QID Print Language: [place]
[2025-02-16 13:18] VITALS: BP 125/76; PULSE 109; RESP 20; TEMP 37; O2SAT 95; BMI 21.3
[2025-02-16 13:34] LABS: MANUAL DIFF FLAG NO
[2025-02-16 13:39] LABS: Basophils Percent Auto 0.4 % (0-2); Eosinophils Absolute Auto 0.1 X10*3/uL (0.0-0.4); Eosinophils Percent Auto 0.7 % (0-4); Hematocrit 39.7 % (37.0-47.0); Hemoglobin 13.4 g/dl (12.0-16.0); Imm Gran Abs Auto 0.03 X10*3/uL (0.00-0.03); Imm Gran Pct Auto 0.4 % (0.0-0.4); Lymphocytes Absolute Auto 2.4 X10*3/uL (1.2-4.9); Lymphocytes Percent Auto 29.5 % (20-40); Mean Corpuscular HGB Conc 33.8 g/dl (31.0-35.0); Mean Corpuscular Hemoglobin 29.1 pg (27.0-33.0); Mean Corpuscular Volume 86.3 fL (80.0-98.0); Monocytes Absolute Auto 0.5 X10*3/uL (0.1-1.2); Monocytes Percent Auto 6.2 % (2-11); Neutrophils Absolute Auto 5.1 x10*3/uL (2.0-8.3); Neutrophils Percent Auto 62.8 % (45-73); Platelet Count 267 X10*3/uL (160-400); Red Cell Distribution Width 13.2 % (11.0-16.0); White Blood Count 8.1 X10*3/uL (4.8-10.8)
[2025-02-16 14:14] LABS: Alanine Aminotransferase 14 U/L (0-31); Albumin Level 4.1 g/dL (3.5-5.0); Alkaline Phosphatase 69 U/L (39-117); Anion Gap 12 (12-20); Aspartate Amino Transferase 24 U/L (5-31); Bilirubin Total 0.5 mg/dL (0.0-1.0); Blood Urea Nitrogen 26 mg/dL (9-16); Calcium 9.6 mg/dL (8.4-10.2); Carbon Dioxide 29 mmol/L (22-29); Chloride 104 mmol/L (96-108); Creatinine Clr Calc Pharmacy 45.6; Estimated Glomerular Filt Rate > 60; Glucose Random 120 mg/dL (60-115); Potassium 3.9 mmol/L (3.3-5.1); Sodium 141 mmol/L (135-145); Total Protein 7.2 g/dL (6.5-8.0)
[2025-02-16 14:15] LABS: Influenza A PCR NEGATIVE (Negative); Influenza B PCR NEGATIVE (Negative); Resp Syncy Virus RNA Qual PCR NEGATIVE (Negative); SARS COV2 PCR INHOUSE NEGATIVE (Negative)
[2025-02-16] MEDS: 0.9 % Sodium Chloride 1,000 ML 999 ML IV (17:24)
[2025-02-16 19:17] VITALS: BP 164/69; PULSE 71; RESP 16; TEMP 36.7; O2SAT 98
[2025-02-16] MEDS: iohexoL 350 MG/ML 100 ML INFUS..BTL IV (19:36)
[2025-02-16] MEDS: Diatrizoate Meglumine, Sodium 30 ML SOLUTION PO (19:36)
[2025-02-16 20:19] LABS: Appearance Urine Clear; Color Urine Yellow; Glucose Urine UA Negative (Negative); Leukocyte Esterase Urine Negative (Negative); Nitrite Urine Negative (Negative); PH 7.5 (5.0-9.0); Specific Gravity - Urine <= 1.005 (1.005-1.025); Urine Blood Negative (Negative); Urine Ketones Negative (Negative); Urine Protein Negative (Neg-Trace)
--- NOTE | 2025-02-16 21:56 | PC.NURSE ---
Soap Suds enema instilled, patient able to retain for about 5 minutes, patient currently on commode w/ call granado in arm's reach.
[2025-02-16 23:32] VITALS: BP 142/78; PULSE 92; RESP 16; TEMP 36.5; O2SAT 98
[2025-02-17 01:15] VITALS: BP 142/78; PULSE 92; RESP 16; TEMP 36.5; O2SAT 98
== END 2025-02-17 01:21 | disposition home or self-care (01) ==
PROVIDERS: Registered Nurse Emergency; Emergency Provider Emergency Medicine; PCP Internal Medicine
DX: K59.00 Constipation, unspecified (principal); R10.9 Unspecified abdominal pain; I10 Essential (primary) hypertension; E78.5 Hyperlipidemia, unspecified; G20.A1 Parkinson's disease without dyskinesia, without mention of fluctuations; Z79.899 Other long term (current) drug therapy; Z03.818 Encounter for observation for suspected exposure to other biological agents ruled out
CPT/HCPCS: 0241U; 74177; 80053; 81003; 85025; 96360; 99284; Q9967

== ENCOUNTER → 2025-02-16 17:05 | Outpatient (BNV) | payer MEDICARE, SELFPAY | PROVIDERS: Emergency Provider Emergency Medicine; PCP Internal Medicine; Visit Provider Specialist | DX: R10.9 Unspecified abdominal pain (principal) | CPT/HCPCS: 74177 ==

== ENCOUNTER 2025-03-17 13:22 | Outpatient (AMB) | payer MEDICARE, SELFPAY ==
[2025-03-17 13:37] VITALS: BP 126/74; PULSE 81; RESP 18; TEMP 37.2; O2SAT 100; BMI 20.2
--- NOTE | 2025-03-17 13:37 | A.OFFVIS_ITS ---
Intake Vital Signs 03/17/25 13:37 Height 5 ft 3 in Weight 114 lb BMI 20.2 BP 126/74 Blood Pressure Location Lt brachial Position Sitting Respiration 18 Pulse 81 Pulse Source Pulse Oximeter Temp 98.9 F Temp Source Oral Pulse Oximetry (%) 100 Oxygen Delivery Method Room Air Intake Visit Reasons: SWV G0439 Allergies clindamycin [CLINDAMYCIN] Allergy (Severe, Verified 03/17/25 13:46) DIARRHEA Penicillins [PCN] Allergy (Intermediate, Verified 03/17/25 13:46) Rash penicillin V Allergy (Unknown, Verified 03/17/25 13:46) Rash jax Allergy (Verified 03/17/25 13:46) could not breath Medication List - Last Reconciled 03/17/25 by Radha Cramer MD amlodipine 5 mg PO DAILY carbidopa-levodopa 25-100 mg 1 tab PO QID docusate sodium (Colace) 100 mg PO DAILY lisinopril-hydrochlorothiazide 10-12.5 mg 1 tab PO DAILY polyethylene glycol 3350 (Miralax) 17 grams PO DAILY rasagiline 0.5 mg PO DAILY HPI SWV G0439 HPI Details Initiated the conversation about Advanced Directives. Advanced Directives help? patients prepare for current and future decisions about their medical treatment? and place of care. Discussed with patient that it is a process where a patients? current condition and prognosis are reviewed, their wishes for information? regarding their illness are elicited, and likely medical dilemmas are presented? and options discussed. The form can be amended as needed, reviewed yearly and? make changes as needed IPPE/AWV ? year old presents? for her ? Annual? Wellness Visit, initial visit.? Medical / Social History Reviewed? Past Medical History ?Yes? . ? [place]? of Care / Care Team list updated ?Yes . ? Surgical/Hospitalization? History ?Yes . ? Current Medications? (including OTC and supplements) ?Yes . ? Family History ?Yes? . ? Tobacco? Control form ?Yes . ? AUDIT-C (Alcohol use) form? ?Yes . ? Illicit drug use in Social? History ?Yes . ? Current diagnosis of? depression? ?No ? Appropriate PHQ2/PHQ9? completed ?Yes . ? Data entered by ?Medical? [employer] and reviewed by provider ? Fall Risk ? Fall? History? Have you had any falls with? injury in the past year? ?No . ? Have you had two or more? falls in the past year? ?No . ? Fall Risk Assessment: ?No? falls in the past year . ? HRA filled out by? the patient, reviewed by Provider and scanned. ? IPPE/AWV ? Balance? [place]? ?Yes . ? Tandem? walk ?Yes . ? Walk and? Turn ?Yes . ? Rise from? sit to stand ?Yes . ?Vision? Corrective? lens ?Yes ? Vision? screen ? Up-to-date, has an appointment [] for vision? screening and glaucoma screening ?Hearing? Whisper? test ?pass .? Initiated the conversation about Advanced Directives. Advanced Directives help? patients prepare for current and future decisions about their medical treatment? and place of care. Discussed with patient that it is a process where a patients? current condition and prognosis are reviewed, their wishes for information? regarding their illness are elicited, and likely medical dilemmas are presented? and options discussed. The form can be amended as needed, reviewed yearly and? make changes as needed Written? Plan?Completed. See Patient? Documents. [facility] Medical History Constipation Sepsis Acute dehydration Nausea vomiting and diarrhea Hypotension Enterocolitis Lymphoma Vitamin D deficiency HTN (hypertension) Parkinson disease Surgical History H/O colonoscopy S/P partial hysterectomy No pertinent past surgical history Family History Father Myocardial infarction Mother Uterine cancer Sister Alzheimer disease Social History Household Members: Other Household Members Other:: self Housing: House Do you presently have visiting nurse or other home services: No Alcohol intake: current Alcohol intake frequency: does not drink Patient Tobacco Use Status: Never used Tobacco e-Cigarette/Vaping Use: Never Used Advance Directives Date on File: 02/18/23 service: No Current occupational status: retired Cognitive needs: No Hearing needs: No Vision needs: Yes Questionnaire Medicare Wellness Checkup What is your age?: 80 or older What gender do you identify with?: female During the past 4 weeks, how much have you been bothered by emotional problems such as feeling anxious, depressed, irritable, sad or downhearted, and blue?: slightly During the past 4 weeks, has your physical & emotional health limited your social activities with family, friends, neighbors, or groups?: not at all During the past 4 weeks, how much bodily pain have you generally had?: mild pain During the past 4 weeks, was someone available to help you if you needed & wanted help?: yes, some During the past 4 weeks, what was the hardest physical activity you could do for at least 2 minutes?: moderate Can you get to places out of walking distance without help? (For eg., can you travel alone on buses, taxis or drive your car?): Yes Can you go shopping for groceries or clothes without someone's help?: Yes Can you prepare your own meals?: Yes Can you do your housework without help?: Yes Because of any health problems, do you need the help of another person with your personal care needs such as eating, bathing, dressing or getting around the house?: No Can you handle your own money without help?: Yes During the past 4 weeks, how would you rate your health in general?: good During the past 4 weeks how have things been going for you?: pretty well Are you having difficulties driving your car?: no Do you always fasten your seat belt when you are in a car?: yes, usually During past 4 weeks, have you been bothered by the following: never: Falling or dizzy when standing up, Sexual problems?, Trouble eating well? and Teeth or denture problems? and sometimes: Problems using the telephone? and Tiredness or fatigue? Have you fallen 2 or more times in the past year?: No Are you afraid of falling?: Yes Are you a smoker?: no During the past 4 weeks, how many drinks of wine, beer, or other alcoholic beverages did you have?: no alcohol at all Do you exercise for about 20 minutes 3 or more times a week?: yes, most of the time Have you been given information to help with the following?: yes: Hazards in your house that might hurt you? and no: Keeping track of your medications? How often do you have trouble taking medicines the way you have been told to take them?: I always take medicine as prescribed How confident are you that you can control & manage most of your health problems?: not very confident What is your race?: White Mini Mental State Exam (MMSE) Orientation What is the (year) (season) (date) (day) (month)?: year, season, date, day and month Where are we (state) (county) (town or city) (hospital) (floor)?: state, county, town or city, hospital/clinic and floor Registration Name of 3 unrelated objects clearly and slowly, then ask patient to repeat all 3 of them. (1st repeat determines score. Make sure they can repeat all three): object 1, object 2 and object 3 Attention & Calculation (CHOOSE ONE) Spell WORLD backwards (DLROW): 5 letters Recall Ask patient to repeat the 3 items from question #3.: object 1, object 2 and object 3 Language Show patient a wristwatch & ask what it is. Repeat for pencil.: watch and pencil Ask the patient to repeat the phrase 'No ifs, ands, or buts' after you.: correct Ask the patient to 'take a piece of paper with their right hand' 'fold paper in half' 'place paper on floor': take paper in right hand, fold paper in half and place paper on floor Print the sentence 'CLOSE YOUR EYES' on a piece. If patient actually closes eyes then score.: followed written direction Give patient a blank piece of paper & ask to write a sentence. Score if it contains a noun & verb.: sentence contains subject and verb Score Score: 29 PHQ-9 Over the last 2 weeks, how often have you been bothered by any of the following problems? 1. Little interest or pleasure in doing things: not at all 2. Feeling down, depressed, or hopeless: not at all 3. Trouble falling or staying asleep, or sleeping too much: not at all 4. Feeling tired or having little energy: not at all 5. Poor appetite or overeating: not at all 6. Feeling bad about yourself - or that you are a failure or have let yourself or your family down: not at all 7. Trouble concentrating on things, such as reading the newspaper or watching television: not at all 8. Moving or speaking so slowly that other people could have noticed. Or the opposite - being so fidgety or restless that you have been moving around a lot more than usual: not at all 9. Thoughts that you would be better off or of hurting yourself in some way: not at all Total score: 0 Depression Screening Interpretation: Negative Depression Screening Done: Yes 95696 - PHQ-9 Billing: Yes Source: Developed by Drs. Lázaro Powell, Maribell De Paz, Travis Lundy and colleagues, with an educational zoë from [employer]. Review of Systems Const All systems reviewed & are unremarkable except as noted in HPI and below Eyes Reports no additional complaints ENT Reports no additional complaints Card Reports no additional complaints Resp Reports no additional complaints GI Reports no additional complaints Reports no additional complaints Physical Exam Vital Signs: Last Vital Signs Temp 98.9 F 03/17/25 13:37 Pulse 81 03/17/25 13:37 Resp 18 03/17/25 13:37 BP 126/74 03/17/25 13:37 Pulse Ox 100 03/17/25 13:37 Oxygen Delivery Method Room Air 03/17/25 13:37 BMI result Body Mass Index 20.2 Const General: no acute distress HEENT Head: Yes normal to inspection Ears: TM's normal bilaterally Eyes General: appearance normal, both eyes and all related structures Neck Neck: Yes no lymphadenopathy and Yes supple Resp Effort & Inspection: normal respiratory effort Auscultation: clear to auscultation bilaterally Cardio Rhythm: regular rhythm Heart sounds: S1 normal heart sound present and S2 normal heart sound present GI Inspection: Yes normal to inspection Palpation (GI): Soft to palpation Percussion: Yes normal to percussion Auscultation: normal bowel sounds Extrem General: Yes no clubbing, cyanosis or edema Assessment & Plan Assessment & Plan (1) HTN (hypertension): Code(s): I10 - Essential (primary) hypertension Plan: Continue current medications (2) Hyperlipidemia: Code(s): E78.5 - Hyperlipidemia, unspecified Plan: Continue low-cholesterol diet (3) Parkinson disease: Comment: Dr. 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, f/u with Hematology Code(s): C82.99 - Follicular lymphoma, unspecified, extranodal and solid organ sites Plan: Follow-up with Hematology at [facility] (5) Annual physical exam: Comment: Patient declined Pneumovax Code(s): Z00.00 - Encounter for general adult medical examination without abnormal findings Plan: Well-balanced diet regular physical activity discussed with the patient return in 6 months with a fasting labs before Orders: Orders Lipid Panel 6 Months E55.9 - Vitamin D deficiency, unspecified, E78.5 - Hyperlipidemia, unspecified, I10 - Essential (primary) hypertension, R73.9 - Hyperglycemia, unspecified Complete Blood Count Auto Diff 6 Months E55.9 - Vitamin D deficiency, unspecified, E78.5 - Hyperlipidemia, unspecified, I10 - Essential (primary) hypertension, R73.9 - Hyperglycemia, unspecified Comprehensive [place]. Panel Fast 6 Months E55.9 - Vitamin D deficiency, unspecified, E78.5 - Hyperlipidemia, unspecified, I10 - Essential (primary) hypertension, R73.9 - Hyperglycemia, unspecified TSH reflex Free T4 6 Months E55.9 - Vitamin D deficiency, unspecified, E78.5 - Hyperlipidemia, unspecified, I10 - Essential (primary) hypertension, R73.9 - Hyperglycemia, unspecified Hemoglobin A1c 6 Months E55.9 - Vitamin D deficiency, unspecified, E78.5 - Hyperlipidemia, unspecified, I10 - Essential (primary) hypertension, R73.9 - Hyperglycemia, unspecified Vitamin D 25-OH Total 6 Months E55.9 - Vitamin D deficiency, unspecified, E78.5 - Hyperlipidemia, unspecified, I10 - Essential (primary) hypertension, R73.9 - Hyperglycemia, unspecified Quality Reporting (2019) Depression/Bipolar (159/160/161/177) PHQ-9: Total score: 0 Coding Level of Care Code Medicare Subsequent (G0439) Diagnoses HTN (hypertension) I10 Hyperlipidemia E78.5 Parkinson disease G20 Follicular non-Hodgkin's lymphoma of oral cavity C82.99 Annual physical exam Z00.00 CPT Codes Advance Care Planning - Advance Care Planning discussion: On file, no changes ([id number]) Advance Care Planning - Time spent: 1-15 minutes, on File ([id number]) Additional Codes PHQ-9 - 84869 - PHQ-9 Billing: Yes ([id number]) Advance Care Planning Advance Care Planning discussion: On file, no changes Forms completed: Health Care Proxy Time spent: 1-15 minutes, on File Did not discuss due to Cultural/Spiritual beliefs: Yes
== END 2025-03-17 14:10 | disposition home or self-care (01) ==
LOC: HO.HMCC 13:23
PROVIDERS: PCP Internal Medicine; Visit Provider Internal Medicine
DX: Z00.00 Encounter for general adult medical examination without abnormal findings (principal); G20.C Parkinsonism, unspecified; C82.99 Follicular lymphoma, unspecified, extranodal and solid organ sites; I10 Essential (primary) hypertension; E78.5 Hyperlipidemia, unspecified

== ENCOUNTER → 2025-03-17 13:22 | Outpatient (BNVA) | payer MEDICARE, SELFPAY | PROVIDERS: PCP Internal Medicine; Visit Provider Internal Medicine | DX: Z00.00 Encounter for general adult medical examination without abnormal findings (principal); E78.5 Hyperlipidemia, unspecified; C82.99 Follicular lymphoma, unspecified, extranodal and solid organ sites; G20.C Parkinsonism, unspecified | CPT/HCPCS: 96127 ==

== ENCOUNTER 2025-05-29 11:04 | Outpatient (REF) | payer MEDICARE, SELFPAY ==
[2025-05-29 13:32] LABS: MANUAL DIFF FLAG NO
[2025-05-29 13:41] LABS: Hematocrit 39.2 % (37.0-47.0); Hemoglobin 13.3 g/dl (12.0-16.0); Imm Gran Abs Auto 0.01 X10*3/uL (0.00-0.03); Imm Gran Pct Auto 0.2 % (0.0-0.4); Lymphocytes Absolute Auto 2.4 X10*3/uL (1.2-4.9); Mean Corpuscular HGB Conc 33.9 g/dl (31.0-35.0); Mean Corpuscular Hemoglobin 29.0 pg (27.0-33.0); Mean Corpuscular Volume 85.4 fL (80.0-98.0); NRBC Abs Auto 0.000 X10*3/uL (0.0-0.012); NRBC Pct Auto 0.0 /100WBC (0.0-0.2); Platelet Count 192 X10*3/uL (160-400); Red Blood Count 4.59 X10*6/uL (4.20-5.50); White Blood Count 4.8 X10*3/uL (4.8-10.8)
[2025-05-29 13:55] LABS: Hemoglobin A1C 136.0495 umol/L; Total Hemoglobin (HGBA1C) 3610.4113 umol/L
[2025-05-29 15:13] LABS: Alanine Aminotransferase 9 U/L (0-31); Albumin Level 4.3 g/dL (3.5-5.0); Alkaline Phosphatase 58 U/L (39-117); Anion Gap 13 (12-20); Aspartate Amino Transferase 27 U/L (5-31); Blood Urea Nitrogen 22 mg/dL (9-16); Calcium 9.7 mg/dL (8.4-10.2); Carbon Dioxide 28 mmol/L (22-29); Chloride 104 mmol/L (96-108); Cholesterol 239 mg/dL (<200); Estimated Glomerular Filt Rate > 60; HDL Cholesterol 61 mg/dL (>40); Potassium 3.8 mmol/L (3.3-5.1); Sodium 141 mmol/L (135-145); Total Protein 7.0 g/dL (6.5-8.0); Triglycerides 68 mg/dL (<150)
== END 2025-05-29 11:05 | disposition home or self-care (01) ==
LOC: HO.HMGCLDS 11:04
PROVIDERS: PCP Internal Medicine; Visit Provider Internal Medicine
DX: I10 Essential (primary) hypertension (principal); E78.5 Hyperlipidemia, unspecified; Z13.1 Encounter for screening for diabetes mellitus
CPT/HCPCS: 36415; 80053; 80061; 83036; 85025

== ENCOUNTER 2025-09-18 13:34 | Outpatient (AMB) | payer MEDICARE, SELFPAY ==
[2025-09-18 13:41] VITALS: BP 120/68; PULSE 76; RESP 16; TEMP 36.6; O2SAT 97; BMI 20.4
--- NOTE | 2025-09-18 13:41 | MHC.PC.OV ---
Vital Signs 09/18/25 13:41 Height 5 ft 3 in Weight 115 lb BMI 20.4 BP 120/68 Blood Pressure Location Lt brachial Position Sitting Respiration 16 Pulse 76 Pulse Source Pulse Oximeter Temp 97.9 F Temp Source Oral Pulse Oximetry (%) 97 Oxygen Delivery Method Room Air Intake Visit Reasons: 6 months f/up Intake Note: Pt is here today for 6 months follow up visit. Allergies clindamycin (CLINDAMYCIN) Allergy (Severe, Verified 09/18/25 14:13) DIARRHEA Penicillins (PCN) Allergy (Intermediate, Verified 09/18/25 14:13) Rash penicillin V Allergy (Unknown, Verified 09/18/25 14:13) Rash jax Allergy (Verified 09/18/25 14:13) could not breath Tobacco use date assessed: 09/18/25 Fall risk assessment: No Falls in past year Last assessed Fall Risk: 09/18/25 Dental Screening Dental Screen Date: 02/06/25 HPI 6 months f/up HPI Details Patient presents for the follow-up hypertension is well controlled on current medications. She is established with neurologist for Parkinson's disease stable on current medications. [facility] Medical History (Updated 09/18/25 @ 15:52 by Radha Cramer MD) Hyperlipidemia Constipation Acute dehydration Nausea vomiting and diarrhea Enterocolitis Vitamin D deficiency HTN (hypertension) Parkinson disease Surgical History H/O colonoscopy S/P partial hysterectomy No pertinent past surgical history Family History Father Myocardial infarction Mother Uterine cancer Sister Alzheimer disease Social History Household Members: Other Household Members Other:: self Housing: House Do you presently have visiting nurse or other home services: No Alcohol intake: current Alcohol intake frequency: does not drink Patient Tobacco Use Status: Never used Tobacco e-Cigarette/Vaping Use: Never Used Advance Directives Date on File: 02/18/23 service: No Current occupational status: retired Cognitive needs: No Hearing needs: No Vision needs: Yes Questionnaire PHQ-9 Over the last 2 weeks, how often have you been bothered by any of the following problems? 1. Little interest or pleasure in doing things: not at all 2. Feeling down, depressed, or hopeless: not at all 3. Trouble falling or staying asleep, or sleeping too much: not at all 4. Feeling tired or having little energy: not at all 5. Poor appetite or overeating: not at all 6. Feeling bad about yourself - or that you are a failure or have let yourself or your family down: not at all 7. Trouble concentrating on things, such as reading the newspaper or watching television: not at all 8. Moving or speaking so slowly that other people could have noticed. Or the opposite - being so fidgety or restless that you have been moving around a lot more than usual: not at all 9. Thoughts that you would be better off or of hurting yourself in some way: not at all Total score: 0 Depression Screening Interpretation: Negative Depression Screening Done: Yes Source: Developed by Drs. Lázaro Powell, Maribell De Paz, Travis Lundy and colleagues, with an educational zoë from [employer]. Thrive Questionnaire Date Thrive assessed: 09/15/25 I am a: Patient What is your living situation today?: I have a steady place to live Within the past 12 months, did the food you bought not last and you didn't have the money to get more?: Never true Within the past 12 months, did you worry whether your food would run out before you got money to buy more?: Never true Do you have trouble paying for medicines?: No Do you have trouble getting transportation to medical appointments?: No Do you have trouble paying your heating and electricity bill?: No Do you have trouble taking care of your child, family member or friend?: No Do you have trouble with day-to-day activities such as bathing, preparing meals, shopping, managing finances, etc.?: No Are you currently unemployed and looking for a job?: No Are you interested in more education?: No Please select the resources that you would like help with: None Currently or been in a relationship where the following occur: No concerns reported THRIVE Score: 0 AUDIT C Alcohol Use Questionnaire (AUDIT-C) 1. How often do you have a drink containing alcohol?: Never 3. How often do you have six or more drinks on one occasion?: Never Total Score: 0 ORION-7 AMB Questionnaire ORION-7 Date ORION - 7 assessed: 02/06/25 Feeling nervous, anxious, or on edge: 0 = Not at all Not being able to stop or control worryin = Not at all Worrying too much about different things: 0 = Not at all Trouble relaxin = Not at all Being so restless that it is hard to sit still: 0 = Not at all Becoming easily annoyed or irritable: 0 = Not at all Feeling afraid as if something awful might happen: 0 = Not at all Total ORION-7 score (0-4 normal; 5-9 mild; 10-14 moderate; 15-21 severe): 0 Source: Developed by Drs. Lázaro Powell, Maribell De Paz, Travis Lundy and colleagues, with an educational zoë from [employer]. Review of Systems Const All systems reviewed & are unremarkable except as noted in HPI and below Eyes Reports no additional complaints Card Reports no additional complaints Resp Reports no additional complaints GI Reports no additional complaints Reports no additional complaints Physical exam (Primary Care) Vital Signs: Last Vital Signs Temp 97.9 F 09/18/25 13:41 Pulse 76 09/18/25 13:41 Resp 16 09/18/25 13:41 BP 120/68 09/18/25 13:41 Pulse Ox 97 09/18/25 13:41 Oxygen Delivery Method Room Air 09/18/25 13:41 BMI result Body Mass Index 20.4 Tobacco/Smoking Status: Tobacco use Status Tobacco use date assessed 09/18/25 09/18/25 14:15 Patient Tobacco Use Status Never used Tobacco 09/18/25 14:15 e-Cigarette/Vaping Use Never Used 09/18/25 13:41 PHQ-9: PHQ-9 Score PHQ-9: Total score 0 09/18/25 14:15 Depression Screening Interpretation: Negative Thrive Assessment: Date of Thrive Assessment Date Thrive assessed 09/15/25 09/18/25 13:41 Currently or been in a relationship where the following occur: No concerns reported Const General: no acute distress HENMT Head: Yes normal to inspection Eyes General: appearance normal, both eyes and all related structures Resp Effort & Inspection: normal respiratory effort Auscultation: clear to auscultation bilaterally Cardio Rhythm: regular rhythm Heart sounds: S1 normal heart sound present and S2 normal heart sound present GI Inspection: Yes normal to inspection Palpation (GI): Soft to palpation Percussion: Yes normal to percussion Auscultation: normal bowel sounds Coding Level of Care Code Est Pt Level 4 (73576) Diagnoses Osteoporosis M81.0 Follicular non-Hodgkin's lymphoma of oral cavity C82.99 Parkinson disease G20 HTN (hypertension) I10 Hyperlipidemia E78.5 Assessment & Plan Assessment & Plan (1) Osteoporosis: Comment: Patient used to take Fosamax but tried for only few months, does not recall side effects Code(s): M81.0 - Age-related osteoporosis without current pathological fracture Category: Medical Plan: Obtain repeat DEXA and Prolia will be tried instead of Fosamax (2) 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 Cramer Code(s): G20 - Parkinson's disease Category: Medical Plan: Continue current medications follow-up with Neurology (4) HTN (hypertension): Code(s): I10 - Essential (primary) hypertension Category: Medical Plan: Continue current medications (5) Hyperlipidemia: Comment: Patient declined medications 08/2025 Code(s): E78.5 - Hyperlipidemia, unspecified Category: Medical Plan: Patient will try low-cholesterol diet and fish oil supplement and follow-up in 6 months with a fasting labs before Orders: Orders Comprehensive [place]. Panel Fast 6 Months E55.9 - Vitamin D deficiency, unspecified, E78.5 - Hyperlipidemia, unspecified, I10 - Essential (primary) hypertension, R73.9 - Hyperglycemia, unspecified Complete Blood Count Auto Diff 6 Months E55.9 - Vitamin D deficiency, unspecified, E78.5 - Hyperlipidemia, unspecified, I10 - Essential (primary) hypertension, R73.9 - Hyperglycemia, unspecified Lipid Panel 6 Months E55.9 - Vitamin D deficiency, unspecified, E78.5 - Hyperlipidemia, unspecified, I10 - Essential (primary) hypertension, R73.9 - Hyperglycemia, unspecified Vitamin D 25-OH Total 6 Months E55.9 - Vitamin D deficiency, unspecified, E78.5 - Hyperlipidemia, unspecified, I10 - Essential (primary) hypertension, R73.9 - Hyperglycemia, unspecified TSH reflex Free T4 6 Months E55.9 - Vitamin D deficiency, unspecified, E78.5 - Hyperlipidemia, unspecified, I10 - Essential (primary) hypertension, R73.9 - Hyperglycemia, unspecified XR DEXA axial skeleton Today M81.0 - Age-related osteoporosis without current pathological fracture
== END 2025-09-18 14:58 | disposition home or self-care (01) ==
LOC: HO.HMCC 13:35
PROVIDERS: PCP Internal Medicine; Visit Provider Internal Medicine
DX: M81.0 Age-related osteoporosis without current pathological fracture (principal); C82.99 Follicular lymphoma, unspecified, extranodal and solid organ sites; G20.C Parkinsonism, unspecified; I10 Essential (primary) hypertension; E78.5 Hyperlipidemia, unspecified

== ENCOUNTER → 2025-09-18 13:34 | Outpatient (BNVA) | payer MEDICARE, SELFPAY | PROVIDERS: PCP Internal Medicine; Visit Provider Internal Medicine | DX: M81.0 Age-related osteoporosis without current pathological fracture (principal); C82.99 Follicular lymphoma, unspecified, extranodal and solid organ sites; G20.C Parkinsonism, unspecified; I10 Essential (primary) hypertension; E78.5 Hyperlipidemia, unspecified | CPT/HCPCS: 99212 ==

== ENCOUNTER 2025-09-27 12:56 | Outpatient (AMB) | payer MEDICARE, SELFPAY ==
--- NOTE | 2025-09-27 12:57 | MHC.OFFVIS ---
Intake Visit Reasons: 6m Accompanied by: Family/Other Allergies clindamycin (CLINDAMYCIN) Allergy (Severe, Verified 09/27/25 13:02) DIARRHEA Penicillins (PCN) Allergy (Intermediate, Verified 09/27/25 13:02) Rash penicillin V Allergy (Unknown, Verified 09/27/25 13:02) Rash jax Allergy (Verified 09/27/25 13:02) could not breath Medication List - Last Reconciled 09/27/25 by Marlyn Grover CNP amlodipine 5 mg PO DAILY carbidopa-levodopa 25-100 mg 1 tab orally alternate 1 tab and 1.5 tabs for 4 doses/day; docusate sodium (Colace) 100 mg PO DAILY lisinopril-hydrochlorothiazide 10-12.5 mg 1 tab PO DAILY polyethylene glycol 3350 (Miralax) 17 grams PO DAILY rasagiline 0.5 mg PO DAILY 90 days HPI Comments Details: She was doing okay. Tremors were stable, L > R. Tremors were worse with anxiety or stress. No functional impairment. No difficulty eating, drinking, or swallowing. No difficulty getting up from chair or turning in bed, but moved slow sometimes. She was exercising and walking on treadmill. No falls. Sleep was okay. Lymphoma is in remission. MRI of the brain was normal. [facility] Medical History (Updated 09/18/25 @ 15:52 by Radha Cramer MD) Hyperlipidemia Constipation Acute dehydration Nausea vomiting and diarrhea Enterocolitis Vitamin D deficiency HTN (hypertension) Parkinson disease Surgical History H/O colonoscopy S/P partial hysterectomy No pertinent past surgical history Family History Father Myocardial infarction Mother Uterine cancer Sister Alzheimer disease Social History Household Members: Other Household Members Other:: self Housing: House Do you presently have visiting nurse or other home services: No Alcohol intake: current Alcohol intake frequency: does not drink Patient Tobacco Use Status: Never used Tobacco e-Cigarette/Vaping Use: Never Used Advance Directives Date on File: 02/18/23 service: No Current occupational status: retired Cognitive needs: No Hearing needs: No Vision needs: Yes Review of Systems Const Denies chills, Denies daytime sleepiness, Denies difficulty sleeping, Denies fatigue, Denies fever(s), Denies frequent falls, Denies headache(s), Denies increased appetite, Denies poor appetite, Denies snoring, Denies weakness, Denies weight gain and Denies weight loss Eyes Denies loss of vision ENT Denies vertigo, Denies dizziness, Denies headache(s) and Denies neck pain Card Denies chest pain at rest, Denies chest pain with activity, Denies syncope, Denies leg edema, Denies palpitations, Denies dyspnea and Denies dyspnea on exertion Resp Denies cough, Denies dyspnea, Denies dyspnea on exertion and Denies snoring GI Denies abdominal pain, Denies constipation, Denies heartburn, Denies diarrhea and Denies nausea Denies urinary frequency, Denies urinary incontinence and Denies urinary urgency Musc Denies abnormal gait, Denies back pain, Denies myalgias, Denies arthralgias, Denies neck pain, Denies numbness and Denies tingling Neuro Denies abnormal gait, Denies vertigo, Denies dizziness, Denies syncope, Denies frequent falls, Denies headache(s), Denies lack of coordination, Denies loss of vision, Denies memory loss, Denies numbness, Denies Other visual disturbances, Denies restless legs, Denies seizure-like activity, Denies tingling, Denies paresthesias, Reports tremor(s) and Denies weakness Psych Denies anxiety, Denies depression, Denies auditory hallucinations, Denies memory loss and Denies visual hallucinations Endo Denies fatigue and Denies palpitations Physical Exam Const Other: General Appearance:? normal, in no acute distress. Heart:? S1, S2 normal, no murmurs. Lungs:? clear anteriorly and posteriorly. Musculoskeletal:? normal. Extremities:? no edema. Psych:? alert, oriented, cognitive function intact, cooperative with exam. Neuro Other: Abnormal Neurological Findings:?Mild resting pill rolling tremors of BUE, L > R. Slight cogwheeling rigidity LUE. Reduced facial expressions and blinking frequency. Slightly stooped posture. Decreased arm swing. Improved bradykinesia. Mental Status: alert and oriented X 3. Normal attention, orientation, memory, and affect. Cranial Nerves: Pupils are equal, round, and reactive to light. External ocular muscles are intact. Visual powell are full, no ptosis. Face is symmetrical, no facial weakness or droop. Facial sensations are normal. Tongue protrudes in midline. Palate elevates symmetrically. Shoulder shrugging is normal Motor Examination: Normal muscle tone, bulk and strength. No atrophy or fasciculations. No drift of the extended upper extremities. DTR 2+. Plantars are flexor. Sensory Exam: Normal light touch, temperature, pinprick, vibration, and joint-position sensations. Rhomberg sign is absent. Coordination: No ataxia. No titubation. Gait Exam: As above. Cerebellar Signs: [id number] is okay. Extrapyramidal System: As above. Speech: Normal. Assessment & Plan Assessment & Plan (1) Parkinson disease: Comment: Dr. Cramer Code(s): G20 - Parkinson's disease Category: Medical Plan: Continue carbidopa-levodopa 25-100mg alternate 1 tablet and 1.5 tablets for 4 doses/day (5 tabs/day). Continue rasagiline 0.5mg 1 tablet daily. Coding Level of Care Code Est Pt Level 4 (10456) Diagnoses Parkinson disease G20
== END 2025-09-27 13:10 | disposition home or self-care (01) ==
LOC: HO.HSM 12:56
PROVIDERS: PCP Internal Medicine; Referring Provider Internal Medicine; Visit Provider Registered Nurse
DX: G20.C Parkinsonism, unspecified (principal)
CPT/HCPCS: 99214

== ENCOUNTER → 2025-09-27 12:56 | Outpatient (BNVA) | payer MEDICARE, SELFPAY | PROVIDERS: PCP Internal Medicine; Referring Provider Internal Medicine; Visit Provider Registered Nurse | DX: G20.A1 Parkinson's disease without dyskinesia, without mention of fluctuations (principal); F06.70 Mild neurocognitive disorder due to known physiological condition without behavioral disturbance | CPT/HCPCS: 99212 ==